=== PATIENT | female | born 1955 | race Caucasian/White ===

== ENCOUNTER 2020-06-26 08:55 | Outpatient (REF) | payer MEDICARE, SELFPAY ==
--- NOTE | 2020-06-26 09:32 | P.BOP_ITS ---
Brief Operative Note Date of Service: 06/26/20 Pre-op diagnosis: Nontoxic multinodular goiter Post-op diagnosis: same Procedure: This procedure was explained to the patient. Alternatives, risks and benefits were discussed. Written consent was obtained. After sterile preparation of the skin, fine-needle aspiration biopsy of right mid pole thyroid nodule size 1.7 x 1.3 x 1.3 cm was performed under direct ultrasound guidance to confirm accurate needle placement. Three passes were performed with 27 gauge needles. Sample was submitted to cytology, initial cytology reading was adequate. 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 Patient tolerated procedure well. Aftercare instructions were provided. Impression: uncomplicated fine-needle aspiration biopsy of right mid pole thyroid nodule under direct ultrasound guidance. Surgeon: Christian Villareal MD Anesthesia: local (Lidocaine 1% 1 mL and Ethyl chloride stream spray) Estimated blood loss (mL): 0 Condition: stable Disposition: same day
[2020-06-26] MEDS: Lidocaine HCl 1 % MPF 5 ML VIAL SUBCUT (11:53)
== END 2020-06-26 08:56 | disposition home or self-care (01) ==
LOC: HO.US 08:55
PROVIDERS: Visit Provider Internal Medicine Endocrinology, Diabetes & Metabolism
DX: E04.2 Nontoxic multinodular goiter (principal)
CPT/HCPCS: 10005; 88172; 88173; 88177

== ENCOUNTER → 2020-07-09 08:00 | Outpatient (BNVA) | payer MEDICARE, SELFPAY | PROVIDERS: PCP Internal Medicine; Visit Provider Internal Medicine Endocrinology, Diabetes & Metabolism | DX: M81.0 Age-related osteoporosis without current pathological fracture (principal); E04.2 Nontoxic multinodular goiter; E55.9 Vitamin D deficiency, unspecified | CPT/HCPCS: 99212 ==

== ENCOUNTER 2020-09-18 09:17 | Outpatient (REF) | payer MEDICARE, SELFPAY ==
[2020-09-18 11:30] LABS: MANUAL DIFF FLAG NO
[2020-09-18 11:34] LABS: Basophils Absolute Auto 0.1 X10*3/uL (0.0-0.2); Basophils Percent Auto 0.7 % (0-2); Eosinophils Absolute Auto 0.7 X10*3/uL (0.0-0.4); Hematocrit 43.1 % (37-47); Hemoglobin 14.1 g/dl (12.0-16.0); Imm Gran Abs Auto 0.04 X10*3/uL (0.00-0.03); Imm Gran Pct Auto 0.6 % (0.0-0.4); Lymphocytes Absolute Auto 2.1 X10*3/uL (1.2-4.9); Lymphocytes Percent Auto 29.8 % (20-40); Mean Corpuscular HGB Conc 32.7 g/dl (31.0-35.0); Mean Corpuscular Hemoglobin 30.1 pg (27.0-33.0); Mean Corpuscular Volume 92.1 fL (80-98); Mean Platelet Volume 11.3 fL (9.4-12.3); Monocytes Absolute Auto 0.7 X10*3/uL (0.1-1.2); Monocytes Percent Auto 10.7 % (2-11); Neutrophils Absolute Auto 3.3 X10*3/uL (2.0-8.3); Neutrophils Percent Auto 48.2 % (45-73); Platelet Count 254 X10*3/uL (160-400); Red Blood Count 4.68 X10*6/uL (4.20-5.50); White Blood Count 6.9 X10*3/uL (4.8-10.8)
[2020-09-18 12:12] LABS: Erythrocyte Sedimentation Rate 2 MM/HR (0-20)
[2020-09-19 06:06] LABS: Immunoglobulin E 36 kU/L (<OR=114)
[2020-09-19 14:52] LABS: Anti Nuclear Antibody Screen NEGATIVE (NEGATIVE)
[2020-09-20 13:46] LABS: Myeloperoxidase Antibody <1.0 AI; Proteinase 3 PR3 Antibodies <1.0 AI
== END 2020-09-18 09:18 | disposition home or self-care (01) ==
LOC: HO.LAB 09:17
PROVIDERS: PCP Internal Medicine; Visit Provider Hospitalist
DX: J45.50 Severe persistent asthma, uncomplicated (principal); J67.9 Hypersensitivity pneumonitis due to unspecified organic dust; R21 Rash and other nonspecific skin eruption; D72.12 Drug rash with eosinophilia and systemic symptoms syndrome; T50.905A Adverse effect of unspecified drugs, medicaments and biological substances, initial encounter; J30.9 Allergic rhinitis, unspecified
CPT/HCPCS: 36415; 82785; 85025; 85652; 86021; 86038; 86039; 99212

== ENCOUNTER 2020-10-13 09:03 | Day surgery (SDC) | payer MEDICARE, SELFPAY ==
[2020-10-07 09:00] VITALS: BMI 17.9
--- NOTE | 2020-10-10 07:11 | P.CONAN_ITS ---
Documented by User: Shayy Graf 10/10/20 07:12 HPI - Anesthesia Eval Consult details Narrative: 65yo F for Colonoscopy PMFSH Active Problems Active Problems: All Active Problems (Updated 10/07/20 @ 09:04 by Arlen Arias) Severe persistent asthma (Acute) Chronic allergic rhinitis (Acute) Eosinophilia (Acute) Hypersensitivity pneumonitis (Acute) Rash and nonspecific skin eruption (Acute) Asthma (Acute) Vitamin D deficiency (Acute) Non-toxic multinodular goiter (Acute) Osteoporosis (Acute) Past Medical History Medical History Asthma Chronic allergic rhinitis Eosinophilia Hx of osteoporosis Hypersensitivity pneumonitis Non-toxic multinodular goiter Osteoporosis Rash and nonspecific skin eruption Severe persistent asthma Vitamin D deficiency Family History Family History Father Hypertension Myocardial infarct Mother Hypertension Surgical History Surgical History H/O colonoscopy History of esophagogastroduodenoscopy (EGD) Hx of cholecystectomy Hx of cystoscopy Hx of hernia repair Hx of hysterectomy Social History Social History Smoking Status: Former smoker Tobacco Type: Cigarette Use of substances other than those prescribed or required for medical reasons: No Advance Directives Information Provided: No Meds Allergies Allergy/AdvReac Type Severity Reaction Status Date / Time sulfur Allergy Severe Nausea and Verified 09/18/20 09:49 Vomiting montelukast [Singulair] AdvReac Severe Headache Verified 09/18/20 09:49 Home Medications Medication Instructions Recorded Confirmed Last Taken Type cholecalciferol (vitamin D3) 125 125 mcg PO DAILY 07/09/20 10/07/20 Unknown History mcg (5,000 unit) capsule fluticasone 500 mcg-salmeterol 50 ea INHALATION 07/09/20 09/18/20 Unknown History mcg/dose blistr powdr for inhalation fluticasone 250 mcg-salmeterol 50 ea INHALATION 09/18/20 09/18/20 Unknown History mcg/dose blistr powdr for inhalation albuterol sulfate [Ventolin HFA] 2 puff INHALATION Q6H PRN 10/07/20 10/07/20 Unknown History fluticasone furoate-vilanterol 1 inh INHALATION DAILY 10/07/20 10/07/20 Unknown History [Steve Garcia] Exam Exam Date and Time: October 10, 2020 0711 Height,Weight and Vital Signs: Height 5 ft 10 in Weight 56.699 kg Assessment and Plan Assessment Anesthesia Assessment: Chart Reviewed Documented by User: Daria Ariza 10/13/20 10:48 [facility] Past Medical History Medical History Asthma Chronic allergic rhinitis Eosinophilia Hx of osteoporosis Hypersensitivity pneumonitis Non-toxic multinodular goiter Osteoporosis Rash and nonspecific skin eruption Severe persistent asthma Vitamin D deficiency Family History Family History Father Hypertension Myocardial infarct Mother Hypertension Surgical History Surgical History H/O colonoscopy History of esophagogastroduodenoscopy (EGD) Hx of cholecystectomy Hx of cystoscopy Hx of hernia repair Hx of hysterectomy Social History Social History Smoking Status: Former smoker Tobacco Type: Cigarette Use of substances other than those prescribed or required for medical reasons: No Advance Directives Information Provided: No Meds Allergies Allergy/AdvReac Type Severity Reaction Status Date / Time sulfur Allergy Severe Nausea and Verified 09/18/20 09:49 Vomiting montelukast [Singulair] AdvReac Severe Headache Verified 09/18/20 09:49 Home Medications Medication Instructions Recorded Confirmed Last Taken Type cholecalciferol (vitamin D3) 125 125 mcg PO DAILY 07/09/20 10/07/20 Unknown Hist ory mcg (5,000 unit) capsule fluticasone 500 mcg-salmeterol 50 ea INHALATION 07/09/20 09/18/20 Unknown History mcg/dose blistr powdr for inhalation fluticasone 250 mcg-salmeterol 50 ea INHALATION 09/18/20 09/18/20 Unknown History mcg/dose blistr powdr for inhalation albuterol sulfate [Ventolin HFA] 2 puff INHALATION Q6H PRN 10/07/20 10/07/20 Unknown History fluticasone furoate-vilanterol 1 inh INHALATION DAILY 10/07/20 10/07/20 Unknown History [Breo Ellipta] Exam Airway Mallampati Class: II TM Dist: >3cm Neck ROM: Full Heart: RRR Lungs: CTA Assessment and Plan Assessment Anesthesia Assessment: Anesthesia Plan Discussed and Chart Reviewed Final Anesthetic Review NPO: Yes ASA Class: II Final Preanesthetic Review: Meds/Allgs Chart Reviewed, Consent Obtained/Reviewed and Anes Risks/Benef Reviewed Patient Risk: Low Procedure Risk: Low Anesthetic Plan Anesthetic Plan: MAC: Disposition: Standard PACU
[2020-10-13 09:38] VITALS: BP 140/73; PULSE 64; RESP 16; TEMP 36.8; O2SAT 99
[2020-10-13 12:06] VITALS: BP 128/63; PULSE 90; RESP 14; TEMP 36.6; O2SAT 98
--- NOTE | 2020-10-13 12:07 | PM.OP ---
Brief Operative Note Date of Service: 10/13/20 Pre-op diagnosis: Screening, Hx of colon polyps Post-op diagnosis: other (Cecal polyp, Diverticulosis) Procedure: Colonoscopy to the cecum with snare polypectomy Surgeon: Matt De La Rosa Anesthesia: MAC Estimated blood loss (mL): 3.0 Pathology: other (A. Cecal polyp) Condition: stable Disposition: PACU
[2020-10-13 12:21] VITALS: BP 133/60; PULSE 70; RESP 17; TEMP 36.6; O2SAT 98
--- NOTE | 2020-10-16 22:39 | OP_ITS ---
SURGEON: Matt De La Rosa MD INDICATIONS: The patient presents for followup of colorectal cancer screening and prior history of tubular adenoma of the colon. Full consent was obtained from her for this including risks of bleeding and perforation. PREOPERATIVE DIAGNOSIS: POSTOPERATIVE DIAGNOSIS: PROCEDURE PERFORMED: Colonoscopy to the cecum with snare polypectomy. ESTIMATED BLOOD LOSS: COMPLICATIONS: ANESTHESIA: Medication used, monitored anesthesia care. ASSISTANTS: SPECIMENS: PREOPERATIVE DIAGNOSES: Colorectal cancer screening and personal history of tubular adenoma of the colon. POSTOPERATIVE DIAGNOSES: Colorectal cancer screening and personal history of tubular adenoma of the colon, colon polyp, diverticulosis, and internal hemorrhoids. DESCRIPTION OF PROCEDURE: The patient was placed in the left lateral decubitus position. The digital rectal exam revealed no abnormalities. The Olympus video pediatric colonoscope was entered into the rectum and advanced easily to the cecum. Once in the cecum, I did identify cecal pouch with appendiceal orifice and a normal appearing ileocecal valve. The entire cecum was well visualized. There was transillumination of light deep in the right lower quadrant. In the cecum, was the previously seen scar from her previous polypectomy. I did not see any residual polyp in this area. However, separate from that was an approximately 8-10 mm grossly adenomatous polyp, which was snared and recovered by suction. The polypectomy site appeared clean, without any sign of residual polyp nor bleeding. The scope was then slowly withdrawn assessing all mucosal surfaces carefully. Preparation was excellent. I did not visualize any sign of other polyps, colitis, nor angiodysplasias. There was a mild amount of sigmoid diverticulosis. In the rectum, scope was retroflexed visualizing internal hemorrhoids, but no other pathology. The rectal mucosa appeared normal. The scope was straightened and withdrawn from the patient. She tolerated the procedure well and was returned to recovery area in stable condition. IMPRESSION: 1. Colon polyp, status post snare polypectomy. 2. Diverticulosis. 3. Internal hemorrhoids. PLAN: The results of the pathology will be checked. Given her previous history and today's findings, I would recommend a repeat colonoscopy in 2 years for further surveillance. She was advised not to use any aspirin and NSAIDs for 1 week. She will see me otherwise on a p.r.n. basis. This has been discussed with her . MD ZARA Schwartz/LEMUEL / [id number] MIKE
== END 2020-10-13 13:02 | disposition home or self-care (01) ==
PROVIDERS: PCP Internal Medicine; Visit Provider Internal Medicine
PROC: 0DJD8ZZ Inspection of Lower Intestinal Tract, Via Natural or Artificial Opening Endoscopic (ICD-10-PCS; CPT 45378; principal; 2020-10-13 10:20)
DX: Z12.11 Encounter for screening for malignant neoplasm of colon (principal); Z86.010 Personal history of colon polyps; D12.0 Benign neoplasm of cecum; K57.30 Diverticulosis of large intestine without perforation or abscess without bleeding; K64.8 Other hemorrhoids; R68.81 Early satiety; J82.83 Eosinophilic asthma; J30.9 Allergic rhinitis, unspecified; M81.0 Age-related osteoporosis without current pathological fracture; Z79.51 Long term (current) use of inhaled steroids; Z90.49 Acquired absence of other specified parts of digestive tract; Z87.891 Personal history of nicotine dependence; Z79.899 Other long term (current) drug therapy
CPT/HCPCS: 45385; 88305

== ENCOUNTER 2020-11-03 09:51 | Outpatient (REF) | payer MEDICARE, SELFPAY ==
[2020-11-03 12:11] LABS: Blood Urea Nitrogen 12 mg/dL (9-16); Estimated Glomerular Filt Rate > 60
== END 2020-11-03 09:52 | disposition home or self-care (01) ==
LOC: HO.HMGCLDS 09:51
PROVIDERS: Visit Provider Internal Medicine Endocrinology, Diabetes & Metabolism
DX: M81.0 Age-related osteoporosis without current pathological fracture (principal)
CPT/HCPCS: 36415; 82565; 84520

== ENCOUNTER 2020-11-04 08:46 | Outpatient (REF) | payer MEDICARE, SELFPAY | END 2020-11-04 08:47 | disposition home or self-care (01) | LOC: HO.MDS 08:46 | PROVIDERS: PCP Internal Medicine; Visit Provider Internal Medicine Endocrinology, Diabetes & Metabolism | DX: M81.0 Age-related osteoporosis without current pathological fracture (principal) | CPT/HCPCS: 96365; J3489 ==

== ENCOUNTER → 2020-11-21 09:28 | Outpatient (BNVA) | payer MEDICARE, SELFPAY | PROVIDERS: PCP Internal Medicine; Visit Provider Hospitalist | DX: J30.9 Allergic rhinitis, unspecified (principal); T50.905A Adverse effect of unspecified drugs, medicaments and biological substances, initial encounter; D72.12 Drug rash with eosinophilia and systemic symptoms syndrome; J67.9 Hypersensitivity pneumonitis due to unspecified organic dust | CPT/HCPCS: 99212 ==

== ENCOUNTER 2020-12-31 08:05 | Outpatient (REF) | payer MEDICARE, SELFPAY | END 2020-12-31 08:06 | disposition home or self-care (01) | LOC: HO.MDS 08:05 | PROVIDERS: PCP Internal Medicine; Visit Provider Hospitalist | DX: J45.50 Severe persistent asthma, uncomplicated (principal) | CPT/HCPCS: 96372; J0517 ==

== ENCOUNTER 2021-01-01 08:58 | Outpatient (REF) | payer MEDICARE, SELFPAY ==
[2021-01-01 12:00] LABS: Alanine Aminotransferase 12 U/L (0-31); Albumin Level 4.5 g/dL (3.5-5.0); Alkaline Phosphatase 56 U/L (39-117); Anion Gap 13 (12-20); Aspartate Amino Transferase 23 U/L (5-31); Bilirubin Total 0.4 mg/dL (0.0-1.0); Blood Urea Nitrogen 13 mg/dL (9-16); Calcium 9.9 mg/dL (8.4-10.2); Carbon Dioxide 27 mmol/L (22-29); Chloride 105 mmol/L (96-108); Estimated Glomerular Filt Rate > 60; Glucose Fasting 91 mg/dL (60-99); Sodium 141 mmol/L (135-145); Total Protein 6.9 g/dL (6.5-8.0)
[2021-01-01 12:25] LABS: Free T4 (Free Thyroxine) 1.18 ng/dL (0.71-1.85); Thyroid Stimulating Hormone 0.72 uIU/mL (0.32-4.0)
[2021-01-07 15:56] LABS: N-Telopeptide 29 (see note); NTXCreaRU 70 mg/dL (20-275)
== END 2021-01-01 08:59 | disposition home or self-care (01) ==
LOC: HO.HMGCLDS 08:58
PROVIDERS: PCP Internal Medicine; Visit Provider Internal Medicine Endocrinology, Diabetes & Metabolism
DX: M81.0 Age-related osteoporosis without current pathological fracture (principal)
CPT/HCPCS: 36415; 80053; 82306; 82523; 84439; 84443

== ENCOUNTER → 2021-01-07 08:00 | Outpatient (BNVA) | payer MEDICARE, SELFPAY | PROVIDERS: PCP Internal Medicine; Visit Provider Internal Medicine Endocrinology, Diabetes & Metabolism | DX: M18.0 Bilateral primary osteoarthritis of first carpometacarpal joints (principal); E04.2 Nontoxic multinodular goiter; E55.9 Vitamin D deficiency, unspecified | CPT/HCPCS: 99212 ==

== ENCOUNTER 2021-01-28 07:44 | Outpatient (REF) | payer MEDICARE, SELFPAY | END 2021-01-28 07:45 | disposition home or self-care (01) | LOC: HO.MDS 07:44 | PROVIDERS: PCP Internal Medicine; Visit Provider Hospitalist | DX: J45.50 Severe persistent asthma, uncomplicated (principal) | CPT/HCPCS: 96372; J0517 ==

== ENCOUNTER 2021-02-24 07:47 | Outpatient (REF) | payer MEDICARE, SELFPAY | END 2021-02-24 07:48 | disposition home or self-care (01) | LOC: HO.MDS 07:47 | PROVIDERS: PCP Internal Medicine; Visit Provider Hospitalist | DX: J45.50 Severe persistent asthma, uncomplicated (principal) | CPT/HCPCS: 96372; J0517 ==

== ENCOUNTER → 2021-03-19 09:20 | Outpatient (BNVA) | payer MEDICARE, SELFPAY | PROVIDERS: PCP Internal Medicine | DX: N20.0 Calculus of kidney (principal) | CPT/HCPCS: Q3014 ==

== ENCOUNTER → 2021-04-17 09:38 | Outpatient (BNVA) | payer MEDICARE, SELFPAY | PROVIDERS: PCP Internal Medicine; Visit Provider Hospitalist | DX: J45.50 Severe persistent asthma, uncomplicated (principal); J30.9 Allergic rhinitis, unspecified; J67.9 Hypersensitivity pneumonitis due to unspecified organic dust; D72.12 Drug rash with eosinophilia and systemic symptoms syndrome; T50.905A Adverse effect of unspecified drugs, medicaments and biological substances, initial encounter | CPT/HCPCS: 99212 ==

== ENCOUNTER 2021-04-21 08:58 | Outpatient (REF) | payer MEDICARE, SELFPAY | END 2021-04-21 08:59 | disposition home or self-care (01) | LOC: HO.MDS 08:58 | PROVIDERS: PCP Internal Medicine; Visit Provider Hospitalist | DX: J45.50 Severe persistent asthma, uncomplicated (principal) | CPT/HCPCS: 96372; J0517 ==

== ENCOUNTER 2021-06-17 09:03 | Outpatient (REF) | payer MEDICARE, SELFPAY | END 2021-06-17 09:04 | disposition home or self-care (01) | LOC: HO.MDS 09:03 | PROVIDERS: PCP Internal Medicine; Visit Provider Hospitalist | DX: J45.50 Severe persistent asthma, uncomplicated (principal) | CPT/HCPCS: 96372; J0517 ==

== ENCOUNTER 2021-08-12 08:51 | Outpatient (REF) | payer MEDICARE, SELFPAY | END 2021-08-12 08:52 | disposition home or self-care (01) | LOC: HO.MDS 08:51 | PROVIDERS: PCP Internal Medicine; Visit Provider Hospitalist | DX: J45.50 Severe persistent asthma, uncomplicated (principal) | CPT/HCPCS: 96372; J0517 ==

== ENCOUNTER 2021-09-25 09:43 | Outpatient (REF) | payer MEDICARE, SELFPAY | END 2021-09-25 09:44 | disposition home or self-care (01) | LOC: HO.MDS 09:43 | PROVIDERS: Visit Provider Hospitalist | DX: J45.50 Severe persistent asthma, uncomplicated (principal) | CPT/HCPCS: 96372; J0517 ==

== ENCOUNTER 2021-09-25 10:24 | Outpatient (REF) | payer MEDICARE, SELFPAY ==
--- NOTE | 2021-09-25 11:38 | PFT_ITS ---
FLOWS: FEV1 103% of predicted at 3.01 L. FVC 93% of predicted at 3.57 L. FEV1 to FVC ratio of 0.84. No bronchodilator response. LUNG VOLUMES: Total lung capacity 95% of predicted at 5.71 L. Residual volume 72% of predicted at 1.78 L. Slow vital capacity 112% of predicted at 3.93 L. Expiratory reserve volume 181% of predicted at 1.76 L. Diffusion capacity is mildly decreased. IMPRESSION: No obstructive or restrictive ventilatory defect. No bronchodilator response. Decreased diffusion capacity suggests emphysema. Giovanni Avitia MD AP/MODL / [id number]
== END 2021-09-25 10:25 | disposition home or self-care (01) ==
LOC: HO.RESP 10:24
PROVIDERS: PCP Internal Medicine; Visit Provider Hospitalist
DX: J45.50 Severe persistent asthma, uncomplicated (principal); R06.00 Dyspnea, unspecified
CPT/HCPCS: 94060; 94727; 94729

== ENCOUNTER → 2021-10-07 09:57 | Outpatient (BNVA) | payer MEDICARE, SELFPAY | PROVIDERS: PCP Internal Medicine; Visit Provider Hospitalist | DX: J45.50 Severe persistent asthma, uncomplicated (principal); J30.9 Allergic rhinitis, unspecified; D72.12 Drug rash with eosinophilia and systemic symptoms syndrome; J67.9 Hypersensitivity pneumonitis due to unspecified organic dust; T50.905A Adverse effect of unspecified drugs, medicaments and biological substances, initial encounter | CPT/HCPCS: 99212 ==

== ENCOUNTER 2021-11-20 08:55 | Outpatient (REF) | payer MEDICARE, SELFPAY | END 2021-11-20 08:56 | disposition home or self-care (01) | LOC: HO.MDS 08:55 | PROVIDERS: Visit Provider Hospitalist | DX: J45.50 Severe persistent asthma, uncomplicated (principal) | CPT/HCPCS: 96372 ==

== ENCOUNTER 2021-11-26 10:16 | Outpatient (REF) | payer MEDICARE, SELFPAY ==
--- NOTE | ~2021-11-26 | MM_ITS ---
EXAMINATION: BONE DENSITOMETRY CLINICAL INDICATION: Age-related osteoporosis without current pathological fracture. COMPARISON: None (current study represents initial baseline exam). TECHNIQUE: Using a OBOOK DXA System (software version: 13.1) manufactured by [employer], dual-energy x-ray absorptiometry was performed of the lumbar spine and left hip. The images are of good technical quality. Summary results are attached. FINDINGS: AP SPINE L1-L4: BMD 0.929 g/cm2, Z-score -0.3, T-score -2.1, osteopenia. LEFT FEMUR, NECK: BMD 0.555 g/cm2, Z-score -1.7, T-score -3.5, osteoporosis. LEFT FEMUR, TOTAL: BMD 0.618 g/cm2, Z-score -1.6, T-score -3.1, osteoporosis. IDENTIFIED RISK FACTORS: Early menopause, secondary osteoporosis, osteoporosis, family history (parental hip fracture), hysterectomy, bilateral oophorectomy. HISTORY OF FRACTURE: None listed. MEDICATIONS: Vitamin D, bisphosphonates. MM/XR DEXA axial skeleton IMPRESSION: 1. DIAGNOSIS: Osteoporosis based on the lowest T-score value of -3.5 in the femoral neck applying World Health Organization criteria. 2. 10-YEAR FRACTURE RISK PREDICTION, FRAX: According to the guidelines, FRAX calculation should only be performed on patients in the osteopenia bone density category. Therefore, FRAX was not performed on this patient. 3. Treatment Recommendations: NOF guidelines recommend consideration for treatment in postmenopausal women and men age 50 and older presenting with the following: -A hip or vertebral (clinical or morphometric) fracture. -T-score less than or equal to -2.5 at the femoral neck or spine after appropriate evaluation to exclude secondary causes. -Low bone mass at the hip or spine and a 10-year fracture probability by FRAX of greater than or equal to 3% for hip fracture or greater than or equal to 20% for major osteoporotic fracture based on the [place] adapted WHO algorithm. 4. Other Recommendations: All treatment decisions require clinical judgment and consideration of individual patient factors, including patient preferences, comorbidities, previous drug use, risk factors not captured in the FRAX model (e.g. frailty, falls, vitamin D deficiency, increased bone turnover, interval significant decline in bone density) and possible under or overestimation of fracture risk by FRAX. Additional medical evaluation for secondary cause of low bone mineral density may be appropriate. FUTURE SCAN RECOMMENDATION: People with diagnosed cases of osteoporosis or at high risk for fracture should have regular bone mineral density tests. For patients eligible for Medicare, routine testing is allowed once every 2 years. The testing frequency can be increased to one year for patients who have rapidly progressing disease, those who are receiving or discontinuing medical therapy to restore bone mass, or have additional risk factors.
== END 2021-11-26 10:17 | disposition home or self-care (01) ==
LOC: HO.MAMMO 10:16
PROVIDERS: Visit Provider Internal Medicine Endocrinology, Diabetes & Metabolism
DX: Z13.820 Encounter for screening for osteoporosis (principal); M81.0 Age-related osteoporosis without current pathological fracture; E04.2 Nontoxic multinodular goiter; Z78.0 Asymptomatic menopausal state
CPT/HCPCS: 77080

== ENCOUNTER 2021-11-30 11:19 | Outpatient (REF) | payer MEDICARE, SELFPAY ==
--- NOTE | ~2021-11-30 | XR_ITS ---
EXAMINATION: XR CHEST CLINICAL INFORMATION: Severe persistent asthma COMPARISON: Previous chest x-ray March 2019 TECHNIQUE: 2 views of the chest were obtained. FINDINGS: The cardiac and mediastinal contours are stable. The lungs are well inflated. The lungs are clear without evidence of pneumonia. There is no pleural effusion or pneumothorax. There are degenerative changes of the spine. XR/XR chest 2V IMPRESSION: Well-inflated lungs. No evidence for acute disease in the chest.
--- NOTE | ~2021-11-30 | US_ITS ---
EXAMINATION: US THYROID CLINICAL INFORMATION: Nontoxic multinodular goiter. COMPARISON: US thyroid 01/14/2020 and 04/03/2018. TECHNIQUE: Linear transducer grayscale and color Doppler examination with attention to the region of the thyroid. FINDINGS: SIZE: Measurements of the thyroid lobes and nodules are given in sagittal, anteroposterior and transverse dimensions respectively. Right Thyroid Lobe: 5.6 x 1.6 x 1.7 cm, volume 7.74 mL. Previously 5.6 x 2.0 x 2.1 cm, volume 12.0 mL. Parenchyma: The gland echotexture is homogeneous. Thyroid vascularity is increased. Left Thyroid Lobe: 5.3 x 1.4 x 2.1 cm, volume 7.8 mL. Previously 5.2 x 1.3 x 2.0 cm, volume 7.1 mL. Parenchyma: The gland echotexture is homogeneous. Thyroid vascularity is increased. Isthmus: 0.18 cm in maximum AP dimension. Previously 0.14 cm. Estimated total number of nodules greater than or equal to 1 cm: 0. Chaperone nodules are described as follows: 1. Location: Right mid. Size: 0.70 x 0.39 x 0.47 cm, volume 0.07 mL. Previously: 1.7 x 1.2 x 1.3 cm, volume 1.4 mL. Nodule characteristics: Composition: Mixed cystic and solid (1). Echogenicity: Hypoechoic (2). Shape: Not taller than wide (0). Margins: Smooth (0). Echogenic Foci: Punctate echogenic foci (3). ACR TI-RADS total points: 6 ACR TI-RADS category: 4 Significant change in size (>/= 20% in 2 dimensions and minimal increase of 2 mm or 50% or greater increase in volume): Decrease in volume. Change in features: None. Change in ACR TI-RADS risk category: Not applicable. 2. Location: Left mid. Size: 0.80 x 0.37 x 0.55 cm, volume 0.09 mL. Previously: 0.78 x 0.40 x 0.56 cm, volume 0.09 mL. Nodule characteristics: Composition: Spongiform (0). Echogenicity: Anechoic (0). Shape: Not taller than wide (0). Margins: Smooth (0). Echogenic Foci: None (0). ACR TI-RADS total points: 0. ACR TI-RADS category: 1. Significant change in size (>/= 20% in 2 dimensions and minimal increase of 2 mm or 50% or greater increase in volume): None. Change in features: None. Change in ACR TI-RADS risk category: Not applicable. 3. Location: Left superior. Size: 0.51 x 0.27 x 0.46 cm, volume 0.03 mL. Previously: 0.51 x 0.26 x 0.45 cm, volume 0.03 mL. Nodule characteristics: Composition: Spongiform (0). Echogenicity: Anechoic (0). Shape: Not taller than wide (0). Margins: Smooth (0). Echogenic Foci: None (0). ACR TI-RADS total points: 0. ACR TI-RADS category: 1. Significant change in size (>/= 20% in 2 dimensions and minimal increase of 2 mm or 50% or greater increase in volume): None. Change in features: None. Change in ACR TI-RADS risk category: Not applicable. NODES: No lymphadenopathy is seen in the tissue surrounding the thyroid gland. US/US thyroid IMPRESSION: Slight decrease in the size of the right thyroid lobe and right midpole nodule. Small subcentimeter nodules left lobe are stable. No change in left thyroid lobe. Bilateral mild increased hypervascularity could be secondary to thyroiditis. ACR TI-RADS RECOMMENDATION REFERENCE: Ultrasound-guided fine-needle aspiration, followup ultrasound, no further follow up. * TR1 (0 point) and TR 2 (2 points): No FNA or follow up * TR3 (3 points): FNA if more than or equal to 2.5 cm in maximum dimension, followup ultrasound in 1, 3 and 5 years if 1.5 to 2.4 cm in maximum dimension. * TR4 (4-6 points): FNA if more than or equal to 1.5 cm in maximum dimension, followup ultrasound in 1, 2, 3 and 5 years if 1 to 1.4 cm in maximum dimension. * TR5 (more than or equal to 7 points): FNA if more than or equal to 1 cm in maximum dimension, followup ultrasound every year for 5 years if 0.5 to 0.9 cm in maximum dimension. * TR3, TR4 or TR5 nodules that are below the size threshold for follow up receive no follow up.
[2021-11-30 13:58] LABS: MANUAL DIFF FLAG NO
[2021-11-30 14:04] LABS: Hematocrit 39.5 % (37.0-47.0); Hemoglobin 12.7 g/dl (12.0-16.0); Imm Gran Abs Auto 0.02 X10*3/uL (0.00-0.03); Imm Gran Pct Auto 0.3 % (0.0-0.4); Lymphocytes Absolute Auto 2.5 X10*3/uL (1.2-4.9); Lymphocytes Percent Auto 41.1 % (20-40); Mean Corpuscular HGB Conc 32.2 g/dl (31.0-35.0); Mean Corpuscular Hemoglobin 29.8 pg (27.0-33.0); Mean Corpuscular Volume 92.7 fL (80.0-98.0); Mean Platelet Volume 12.1 fL (9.4-12.3); Monocytes Absolute Auto 0.6 X10*3/uL (0.1-1.2); Monocytes Percent Auto 9.3 % (2-11); Neutrophils Percent Auto 49.3 % (45-73); Platelet Count 221 X10*3/uL (160-400); Red Blood Count 4.26 X10*6/uL (4.20-5.50); Red Cell Distribution Width 13.1 % (11.0-16.0); White Blood Count 6.2 X10*3/uL (4.8-10.8)
== END 2021-11-30 11:20 | disposition home or self-care (01) ==
LOC: HO.HMGCX 11:19
PROVIDERS: Hospitalist; Visit Provider Internal Medicine Endocrinology, Diabetes & Metabolism
DX: E04.2 Nontoxic multinodular goiter (principal); J45.50 Severe persistent asthma, uncomplicated; M81.0 Age-related osteoporosis without current pathological fracture
CPT/HCPCS: 36415; 71046; 76536; 85025

== ENCOUNTER 2022-01-15 09:20 | Outpatient (REF) | payer MEDICARE, SELFPAY | END 2022-01-15 09:21 | disposition home or self-care (01) | LOC: HO.MDS 09:20 | PROVIDERS: Visit Provider Hospitalist | DX: J45.50 Severe persistent asthma, uncomplicated (principal) | CPT/HCPCS: 96372; J0517 ==

== ENCOUNTER 2022-01-17 18:22 | Emergency (ER) | payer MEDICARE, SELFPAY ==
--- NOTE | 2022-01-17 | ECG_ITS ---
Test Reason : SOB Blood Pressure : / mmHG Vent. Rate : 098 BPM Atrial Rate : 098 BPM P-R Int : 136 ms QRS Dur : 088 ms QT Int : 328 ms P-R-T Axes : 076 034 070 degrees QTc Int : 418 ms Normal sinus rhythm Possible Left atrial enlargement Nonspecific ST abnormality Abnormal ECG When compared with ECG of 21-APR-2019 07:52, Nonspecific T wave abnormality now evident in Anterior leads Referred By: Generic ED Physician Electronically Signed By:AL ROJO
--- NOTE | ~2022-01-17 | XR_ITS ---
EXAMINATION: XR CHEST CLINICAL INFORMATION: Cough COMPARISON: 11/30/2021 TECHNIQUE: Frontal view of the chest was obtained. FINDINGS: Mild increasing opacity at the right base. Evolving infiltrate needs to be considered. Otherwise lung alfredo are comparable to previous. There is no failure. No effusion. The cardiac silhouette is within normal limits. XR/XR chest 1V IMPRESSION: Findings suggest developing right basilar infiltrate
[2022-01-17 18:24] VITALS: BP 152/71; PULSE 109; RESP 22; TEMP 37.7; O2SAT 94; BMI 18.6
[2022-01-17 18:58] LABS: MANUAL DIFF FLAG NO
[2022-01-17 19:00] LABS: Basophils Percent Auto 0.1 % (0-2); Hematocrit 41.1 % (37.0-47.0); Hemoglobin 13.7 g/dl (12.0-16.0); Imm Gran Abs Auto 0.04 X10*3/uL (0.00-0.03); Imm Gran Pct Auto 0.4 % (0.0-0.4); Lymphocytes Absolute Auto 0.9 X10*3/uL (1.2-4.9); Lymphocytes Percent Auto 7.9 % (20-40); Mean Corpuscular HGB Conc 33.3 g/dl (31.0-35.0); Mean Corpuscular Hemoglobin 29.7 pg (27.0-33.0); Mean Platelet Volume 11.1 fL (9.4-12.3); Monocytes Absolute Auto 1.2 X10*3/uL (0.1-1.2); Monocytes Percent Auto 10.9 % (2-11); Neutrophils Percent Auto 80.7 % (45-73); Platelet Count 182 X10*3/uL (160-400); Red Blood Count 4.62 X10*6/uL (4.20-5.50); Red Cell Distribution Width 12.7 % (11.0-16.0); White Blood Count 11.1 X10*3/uL (4.8-10.8)
[2022-01-17 19:13] LABS: Anion Gap 19 (12-20); Blood Urea Nitrogen 13 mg/dL (9-16); Calcium 9.5 mg/dL (8.4-10.2); Carbon Dioxide 21 mmol/L (22-29); Chloride 97 mmol/L (96-108); Creatinine Clr Calc Pharmacy 50.1; Estimated Glomerular Filt Rate 55; Glucose Random 109 mg/dL (60-115); Potassium 4.1 mmol/L (3.3-5.1); Sodium 133 mmol/L (135-145)
[2022-01-17 19:15] LABS: COVID-19 Test Negative (Negative); IDNOW Serial# 16C4AD1C
[2022-01-17 19:17] LABS: Influenza A Negative (Negative); Influenza B2 Negative (Negative)
--- NOTE | 2022-01-17 22:31 | ED.GENADULT ---
HPI - General Adult General Chief complaint: General Medical Stated complaint: Nauseas/Weakness Time Seen by Provider: 01/17/22 18:41 Source: patient Mode of arrival: ambulatory Limitations: no limitations History of Present Illness HPI narrative: Patient With history of asthma but coughing for last 3- 4 days with low-grade fever and mucopurulent expectoration her granddaughter also sick with same. Patient does use inhaler at home no significant shortness of breath or chest pain or palpitation Related Data Home Medications Medication Instructions Recorded Confirmed albuterol sulfate 90 mcg/actuation 2 puff inhalation Q6H PRN Wheezing 10/07/20 01/07/21 aerosol inhaler (Ventolin HFA) Previous Rx's Medication Instructions Recorded zoledronic acid 5 mg/100 mL in 1 ea IV ONCE 1 day #100 mL 10/14/20 mannitol 5 %-water intravenous piggybck (Reclast) cholecalciferol (vitamin D3) 125 125 mcg PO DAILY 90 days #90 caps 01/07/21 mcg (5,000 unit) capsule azelastine 137 mcg (0.1 %) nasal 2 spray intranasal BID 30 days #30 04/17/21 spray aerosol mL fluticasone 250 mcg-salmeterol 50 1 ea inhalation BID #180 ea 10/07/21 mcg/dose blistr powdr for inhalation (Wixela Inhub) fluticasone propionate 50 2 spray intranasal DAILY 30 days 10/07/21 mcg/actuation nasal #15.8 mL spray,suspension Fasenra 30 mg/mL subcutaneous 30 mg subcut Q8W 360 days #1 mL 12/23/21 syringe (benralizumab) cetirizine 10 mg tablet 10 mg PO DAILY #90 tabs 12/25/21 triamcinolone acetonide 0.1 % 1 appl topical DAILY #60 mL 01/04/22 lotion cefpodoxime 200 mg tablet 200 mg PO BID #20 tabs 01/17/22 codeine 10 mg-guaifenesin 100 mg/5 5 ml PO Q6H PRN cough #237 mL 01/17/22 mL oral liquid (Guaiatussin AC) Allergies Allergy/AdvReac Type Severity Reaction Status Date / Time sulfur Allergy Severe Nausea and Verified 01/04/22 10:26 Vomiting montelukast [Singulair] AdvReac Severe Headache Verified 01/04/22 10:26 Review of Systems Review of Systems: Yes all other systems are reviewed and are negative [facility] Past Medical History Medical History Hx of osteoporosis Surgical History H/O colonoscopy History of esophagogastroduodenoscopy (EGD) Hx of cholecystectomy Hx of cystoscopy Hx of hernia repair Hx of hysterectomy Family History Family History Father Hypertension Myocardial infarct Mother Hypertension Social History Social History Patient Tobacco Use Status: Former Tobacco user Tobacco use type: Cigarette Cigarettes Per Day: 10 Years Smoked: 20 Advance Directives: No Advance Directives Information Provided: No Physical Exam ED Vital Signs: Vital Signs - 24 hr 01/17/22 18:24 01/17/22 22:53 Temperature 99.8 F 100.2 F Pulse Rate 109 H 104 H Respiratory Rate 22 H 18 Blood Pressure 152/71 H 148/69 H Pulse Oximetry 94 95 Oxygen Delivery Method Room Air Room Air BMI result Body Mass Index 18.6 Appearance: Alert. Oriented X3. No acute distress. Eyes: No pallor or icterus ENT: Pharynx normal. Oral Mucosa moist Neck: Normal inspection. Neck supple. CVS: Normal heart rate and rhythm. Pulses normal. Respiratory: No respiratory distress. Equal air entry bilateral, occasional crackles bilateral prolonged expiration Abdomen: Soft and nontender. Bowel sounds are present, no mass palpable, no CVA tenderness Skin: Skin warm and dry. Normal skin color. Normal skin turgor. Extremities: No lower extremity edema. No calf tenderness Neuro: Oriented X 3. No motor deficit. No sensory deficit. Medical Decision Making MDM Narrative Medical decision making narrative: Patient's symptoms with bronchitis chest x-ray negative for consolidation showing early infiltrate right lower lobe start patient on cefopodoxim Lab Data Lab results reviewed: Yes I reviewed the patient's lab results. Result diagrams: 01/17/22 18:31 01/17/22 18:31 Labs: Lab Results 01/17/22 01/17/22 01/17/22 Range/Units 18:28 18:28 18:31 WBC 11.1 H (4.8-10.8) X10*3/uL RBC 4.62 (4.20-5.50) X10*6/uL Hgb 13.7 (12.0-16.0) g/dl Hct 41.1 (37.0-47.0) % MCV 89.0 (80.0-98.0) fL MCH 29.7 (27.0-33.0) pg MCHC 33.3 (31.0-35.0) g/dl RDW 12.7 (11.0-16.0) % Plt Count 182 (160-400) X10*3/uL MPV 11.1 (9.4-12.3) fL Immature Gran % (Auto) 0.4 (0.0-0.4) % Neut % (Auto) 80.7 H (45-73) % Lymph % (Auto) 7.9 L (20-40) % Republic % (Auto) 10.9 (2-11) % Eos % (Auto) 0.0 (0-4) % Baso % (Auto) 0.1 (0-2) % Lymph # (Auto) 0.9 L (1.2-4.9) X10*3/uL Republic # (Auto) 1.2 (0.1-1.2) X10*3/uL Eos # (Auto) 0.0 (0.0-0.4) X10*3/uL Baso # (Auto) 0.0 (0.0-0.2) X10*3/uL Abs Immat Gran (auto) 0.04 H (0.00-0.03) X10*3/uL Absolute Neuts (auto) 9.0 H (2.0-8.3) x10*3/uL Absolute Nucleated RBC 0.000 (0.0-0.012) X10*3/uL Nucleated RBC % (auto) 0.0 (0.0-0.2) /100WBC Sodium (135-145) mmol/L Potassium (3.3-5.1) mmol/L Chloride (96-108) mmol/L Carbon Dioxide (22-29) mmol/L Anion Gap (12-20) BUN (9-16) mg/dL Creatinine (0.5-1.4) mg/dL Estim Creat Clear Calc Estimated GFR Random Glucose (60-115) mg/dL Calcium (8.4-10.2) mg/dL COVID-19 (MELISA) Negative (Negative) COVID-19 Clin Com See Note Influenza Type A (ALBERTA) Negative (Negative) Influenza Type B (ALBERTA) Negative (Negative) Influenza A & B Note See Note 01/17/22 Range/Units 18:31 WBC (4.8-10.8) X10*3/uL RBC (4.20-5.50) X10*6/uL Hgb (12.0-16.0) g/dl Hct (37.0-47.0) % MCV (80.0-98.0) fL MCH (27.0-33.0) pg MCHC (31.0-35.0) g/dl RDW (11.0-16.0) % Plt Count (160-400) X10*3/uL MPV (9.4-12.3) fL Immature Gran % (Auto) (0.0-0.4) % Neut % (Auto) (45-73) % Lymph % (Auto) (20-40) % Republic % (Auto) (2-11) % Eos % (Auto) (0-4) % Baso % (Auto) (0-2) % Lymph # (Auto) (1.2-4.9) X10*3/uL Republic # (Auto) (0.1-1.2) X10*3/uL Eos # (Auto) (0.0-0.4) X10*3/uL Baso # (Auto) (0.0-0.2) X10*3/uL Abs Immat Gran (auto) (0.00-0.03) X10*3/uL Absolute Neuts (auto) (2.0-8.3) x10*3/uL Absolute Nucleated RBC (0.0-0.012) X10*3/uL Nucleated RBC % (auto) (0.0-0.2) /100WBC Sodium 133 L (135-145) mmol/L Potassium 4.1 (3.3-5.1) mmol/L Chloride 97 (96-108) mmol/L Carbon Dioxide 21 L (22-29) mmol/L Anion Gap 19 (12-20) BUN 13 (9-16) mg/dL Creatinine 1.00 (0.5-1.4) mg/dL Estim Creat Clear Calc 50.1 Estimated GFR 55 Random Glucose 109 (60-115) mg/dL Calcium 9.5 (8.4-10.2) mg/dL COVID-19 (MELISA) (Negative) COVID-19 Clin Com Influenza Type A (ALBERTA) (Negative) Influenza Type B (ALBERTA) (Negative) Influenza A & B Note Discharge Plan Discharge Clinical Impression: Acute bronchitis Patient Disposition: Home, Self-Care Instructions: Acute Bronchitis (ED) Additional Instructions: Continue to use albuterol inhaler Take antibiotics and cough syrup as prescribed Follow-up with PCP if not better Prescriptions: New cefpodoxime 200 mg tablet 200 mg PO BID Qty: 20 0RF Rx Instructions: must administer with a meal/food codeine-guaifenesin [Guaiatussin AC] 10-100 mg/5 mL liquid 5 ml PO Q6H PRN (Reason: cough) Qty: 237 0RF No Action zoledronic [id number]-[id number] [Reclast] 5 mg/100 mL piggyback 1 ea IV ONCE 1 Days Qty: 100 0RF Fasenra 30 mg/mL syringe 30 mg subcut Q8W 360 Days Qty: 1 12RF cetirizine 10 mg tablet 10 mg PO DAILY Qty: 90 2RF albuterol sulfate [Ventolin HFA] 90 mcg/actuation Hfa Aerosol Inhaler 2 puff INHALATION Q6H PRN (Reason: Wheezing) triamcinolone acetonide 0.1 % lotion 1 appl topical DAILY Qty: 60 0RF cholecalciferol (vitamin D3) 125 mcg (5,000 unit) capsule 125 mcg PO DAILY 90 Days Qty: 90 1RF azelastine 137 mcg (0.1 %) aerosol,spray 2 spray intranasal BID 30 Days Qty: 30 6RF Rx Instructions: administer into each nostril fluticasone propion-salmeterol [Wixela Inhub] 250-50 mcg/dose blister with device 1 ea inhalation BID Qty: 180 3RF fluticasone propionate 50 mcg/actuation spray,suspension 2 spray intranasal DAILY 30 Days Qty: 15.8 11RF Interventions: ED Discharge Assessment Last Done: 01/17/22 23:10 Discharge Date/Time: 01/17/22 23:11
[2022-01-17] MEDS: guaiFEN/Codeine SF 200/20/10ML 10 ML LIQUID PO (22:52)
[2022-01-17 22:53] VITALS: BP 148/69; PULSE 104; RESP 18; TEMP 37.9; O2SAT 95
== END 2022-01-17 23:11 | disposition home or self-care (01) ==
PROVIDERS: Emergency Provider Internal Medicine; PCP Internal Medicine
DX: J20.9 Acute bronchitis, unspecified (principal); Z20.822 Contact with and (suspected) exposure to COVID-19
CPT/HCPCS: 71045; 80048; 85025; 87502; 87635; 93005; 99283; 99284

== ENCOUNTER → 2022-02-10 09:56 | Outpatient (BNVA) | payer MEDICARE, SELFPAY | PROVIDERS: PCP Internal Medicine; Visit Provider Internal Medicine Endocrinology, Diabetes & Metabolism | DX: M81.0 Age-related osteoporosis without current pathological fracture (principal); E04.2 Nontoxic multinodular goiter | CPT/HCPCS: 99212 ==

== ENCOUNTER 2022-02-15 12:51 | Outpatient (REF) | payer MEDICARE, SELFPAY ==
--- NOTE | ~2022-02-15 | US_ITS ---
EXAMINATION: US RETROPERITONEAL LIMITED (RENAL ONLY) CLINICAL INFORMATION: Calculus of kidney. COMPARISON: Renal ultrasound 01/29/2021, renal ultrasound 08/31/2019, CT abdomen and pelvis 07/19/2019. TECHNIQUE: Real-time imaging of the kidneys. FINDINGS: RIGHT KIDNEY: 9.5 x 3.5 x 4.8 cm (SAG x AP x TRV). The kidney is normal in size, contour, and echogenicity. Renal cortical thickness is normal. No calculi or focal parenchymal lesions. No hydronephrosis. There are a few scattered punctate echogenic foci visualized. LEFT KIDNEY: 10.3 x 4.7 x 4.9 cm (SAG x AP x TRV). The kidney is normal in size, contour, and echogenicity. Renal cortical thickness is normal. No focal parenchymal lesions or hydronephrosis. There is a nonobstructive echogenic stone lower pole measuring 0.4 x 0.5 x 0.5 cm. There are a few punctate echogenic foci seen. US/US renal BI IMPRESSION: Nonobstructive echogenic calculi lower pole left kidney. Scattered punctate echogenic foci.
== END 2022-02-15 12:52 | disposition home or self-care (01) ==
LOC: HO.HMGCX 12:51
DX: N20.0 Calculus of kidney (principal)
CPT/HCPCS: 76775

== ENCOUNTER 2022-03-12 08:39 | Outpatient (REF) | payer MEDICARE, SELFPAY | END 2022-03-12 08:40 | disposition home or self-care (01) | LOC: HO.MDS 08:39 | PROVIDERS: Visit Provider Hospitalist | DX: J45.50 Severe persistent asthma, uncomplicated (principal) | CPT/HCPCS: 96372; J0517 ==

== ENCOUNTER → 2022-03-25 11:50 | Outpatient (BNVA) | payer MEDICARE, SELFPAY | PROVIDERS: PCP Internal Medicine; Visit Provider Urology | DX: N20.0 Calculus of kidney (principal) | CPT/HCPCS: Q3014 ==

== ENCOUNTER 2022-04-28 07:04 | Outpatient (REF) | payer MEDICARE, SELFPAY ==
[2022-05-03 17:47] LABS: N-Telopeptide 31 (see note); NTXCreaRU 61 mg/dL (20-275)
== END 2022-04-28 07:05 | disposition home or self-care (01) ==
LOC: HO.LAB 07:04
PROVIDERS: PCP Internal Medicine; Visit Provider Internal Medicine Endocrinology, Diabetes & Metabolism
DX: M81.0 Age-related osteoporosis without current pathological fracture (principal)
CPT/HCPCS: 82523

== ENCOUNTER 2022-05-07 08:51 | Outpatient (REF) | payer MEDICARE, SELFPAY | END 2022-05-07 08:52 | disposition home or self-care (01) | LOC: HO.MDS 08:51 | PROVIDERS: Visit Provider Hospitalist | DX: J45.50 Severe persistent asthma, uncomplicated (principal) | CPT/HCPCS: 96372 ==

== ENCOUNTER → 2022-06-11 10:39 | Outpatient (BNVA) | payer MEDICARE, SELFPAY | PROVIDERS: PCP Internal Medicine; Visit Provider Internal Medicine Endocrinology, Diabetes & Metabolism | DX: M81.0 Age-related osteoporosis without current pathological fracture (principal); E04.2 Nontoxic multinodular goiter | CPT/HCPCS: 99212 ==

== ENCOUNTER 2022-07-02 08:49 | Outpatient (REF) | payer MEDICARE, SELFPAY | END 2022-07-02 08:50 | disposition home or self-care (01) | LOC: HO.MDS 08:49 | PROVIDERS: Visit Provider Hospitalist | DX: J45.50 Severe persistent asthma, uncomplicated (principal) | CPT/HCPCS: 96372 ==

== ENCOUNTER 2022-08-26 08:49 | Outpatient (REF) | payer MEDICARE, SELFPAY | END 2022-08-26 08:50 | disposition home or self-care (01) | LOC: HO.MDS 08:49 | PROVIDERS: Visit Provider Hospitalist | DX: J45.50 Severe persistent asthma, uncomplicated (principal) | CPT/HCPCS: 96372 ==

== ENCOUNTER 2022-09-23 11:01 | Outpatient (REF) | payer MEDICARE, SELFPAY ==
[2022-09-23 13:04] LABS: Appearance Urine Clear; Color Urine Yellow; Glucose Urine UA Negative (Negative); Leukocyte Esterase Urine Large (3+) (Negative); Nitrite Urine Negative (Negative); Specific Gravity - Urine <= 1.005 (1.005-1.025); UMIC TRIGGER UA YES; Urine Blood Small (1+) (Negative); Urine Ketones Negative (Negative); Urine Protein Negative (Neg-Trace)
[2022-09-23 13:16] LABS: Bacteria Urine 4+ (None Seen); Hyaline Casts Urine 0-2 /LPF (0-2); RBC Urine 0-2 /HPF (0-2); Squamous Epithelial Cell Urine 0-2 /HPF (0-2)
== END 2022-09-23 11:02 | disposition home or self-care (01) ==
LOC: HO.LAB 11:01
PROVIDERS: PCP Internal Medicine; Visit Provider Urology
DX: N20.0 Calculus of kidney (principal)
CPT/HCPCS: 81001; 87086; 87088; 87186

== ENCOUNTER 2022-10-21 08:51 | Outpatient (REF) | payer MEDICARE, SELFPAY | END 2022-10-21 08:52 | disposition home or self-care (01) | LOC: HO.MDS 08:51 | PROVIDERS: Visit Provider Hospitalist | DX: J45.50 Severe persistent asthma, uncomplicated (principal) | CPT/HCPCS: 96372 ==

== ENCOUNTER 2022-12-16 08:48 | Outpatient (REF) | payer MEDICARE, SELFPAY | END 2022-12-16 08:49 | disposition home or self-care (01) | LOC: HO.MDS 08:48 | PROVIDERS: Visit Provider Hospitalist | DX: J45.50 Severe persistent asthma, uncomplicated (principal) | CPT/HCPCS: 96372 ==

== ENCOUNTER 2023-02-10 08:32 | Outpatient (REF) | payer MEDICARE, SELFPAY | END 2023-02-10 08:33 | disposition home or self-care (01) | LOC: HO.MDS 08:32 | PROVIDERS: Visit Provider Hospitalist | DX: J45.50 Severe persistent asthma, uncomplicated (principal) | CPT/HCPCS: 96372; J0517 ==

== ENCOUNTER 2023-03-14 08:23 | Outpatient (REF) | payer MEDICARE, SELFPAY ==
--- NOTE | 2023-03-14 09:06 | PFT_ITS ---
INDICATION: Asthma. SPIROMETRY: FEV to FVC of 85% with an FEV1 of 2.76 L, which is 96% predicted, FVC of 3.26 L, which is 86% predicted. No significant response to bronchodilators noted. Maximum voluntary ventilation 160% predicted. LUNG VOLUMES: Total lung capacity 90% predicted. DIFFUSION CAPACITY: DLCO 62% predicted. COMPARISONS: None available. INTERPRETATION: No obstructive nor restrictive ventilatory defects identified. No significant response to bronchodilators noted. Normal maximum voluntary ventilation. Lung volumes are within normal limits. The patient does have a mild isolated diffusion impairment. Clinical correlation warranted. Should also correct for hemoglobin. Jeremy Weinstein MD MR/MODL / [id number]
[2023-03-14 09:12] LABS: MANUAL DIFF FLAG NO
[2023-03-14 09:30] LABS: Hematocrit 42.5 % (37.0-47.0); Hemoglobin 13.9 g/dl (12.0-16.0); Imm Gran Abs Auto 0.03 X10*3/uL (0.00-0.03); Imm Gran Pct Auto 0.6 % (0.0-0.4); Lymphocytes Absolute Auto 2.3 X10*3/uL (1.2-4.9); Mean Corpuscular HGB Conc 32.7 g/dl (31.0-35.0); Mean Corpuscular Hemoglobin 29.3 pg (27.0-33.0); Mean Corpuscular Volume 89.5 fL (80.0-98.0); Monocytes Absolute Auto 0.6 X10*3/uL (0.1-1.2); Monocytes Percent Auto 11.6 % (2-11); Neutrophils Absolute Auto 2.3 x10*3/uL (2.0-8.3); Neutrophils Percent Auto 43.8 % (45-73); Platelet Count 208 X10*3/uL (160-400); Red Blood Count 4.75 X10*6/uL (4.20-5.50); Red Cell Distribution Width 13.2 % (11.0-16.0); White Blood Count 5.2 X10*3/uL (4.8-10.8)
[2023-03-14 10:17] LABS: Erythrocyte Sedimentation Rate 2 MM/HR (0-20)
[2023-03-16 06:28] LABS: Immunoglobulin E 19 kU/L (<OR=114)
[2023-03-16 16:32] LABS: IgA 160 mg/dL (70-320); IgG 827 mg/dL (600-1540); IgM 92 mg/dL (50-300)
== END 2023-03-14 08:24 | disposition home or self-care (01) ==
LOC: HO.RESP 08:23
PROVIDERS: Visit Provider Hospitalist
DX: D72.12 Drug rash with eosinophilia and systemic symptoms syndrome (principal); T50.905A Adverse effect of unspecified drugs, medicaments and biological substances, initial encounter; J45.50 Severe persistent asthma, uncomplicated; J30.9 Allergic rhinitis, unspecified
CPT/HCPCS: 36415; 82784; 82785; 85025; 85652; 94010; 94727; 94729

== ENCOUNTER → 2023-03-14 09:06 | Outpatient (BNV) | payer MEDICARE, SELFPAY | PROVIDERS: Visit Provider Hospitalist | DX: J45.909 Unspecified asthma, uncomplicated (principal) | CPT/HCPCS: 94060; 94727; 94729 ==

== ENCOUNTER 2023-03-18 09:41 | Outpatient (REF) | payer MEDICARE, SELFPAY ==
--- NOTE | ~2023-03-18 | XR_ITS ---
EXAMINATION: XR CHEST CLINICAL INFORMATION: Drug rash with eosinophilia and systemic systems syndrome. COMPARISON: None available. TECHNIQUE: 2 views of the chest were obtained. FINDINGS: The cardiomediastinal silhouette is normal. There is no focal lung consolidation or pleural effusion. The bony structures and soft tissues are unremarkable. XR/XR chest 2V IMPRESSION: No active cardiopulmonary disease.
--- NOTE | ~2023-03-18 | US_ITS ---
EXAMINATION: US RETROPERITONEAL LIMITED (RENAL ONLY) CLINICAL INFORMATION: Microscopic hematuria. COMPARISON: Renal ultrasound 02/15/2022 and 01/29/2021. CT abdomen and pelvis 07/19/2019. TECHNIQUE: Real-time imaging of the kidneys. FINDINGS: RIGHT KIDNEY: 9.4 x 3.4 x 4.5 cm (SAG x AP x TRV). The kidney is normal in size, contour, and echogenicity. Renal cortical thickness is normal. No calculi or focal parenchymal lesions. No hydronephrosis. LEFT KIDNEY: 9.8 x 3.9 x 4.6 cm (SAG x AP x TRV). The kidney is normal in size, contour, and echogenicity. Renal cortical thickness is normal. No calculi or focal parenchymal lesions. No hydronephrosis. US/US retroperitoneal limited IMPRESSION: Unremarkable examination.
== END 2023-03-18 09:42 | disposition home or self-care (01) ==
LOC: HO.US 09:41
PROVIDERS: PCP Internal Medicine; Visit Provider Urology
DX: D72.12 Drug rash with eosinophilia and systemic symptoms syndrome (principal); T50.905A Adverse effect of unspecified drugs, medicaments and biological substances, initial encounter; J45.50 Severe persistent asthma, uncomplicated; J30.9 Allergic rhinitis, unspecified; R31.29 Other microscopic hematuria
CPT/HCPCS: 71046; 76775

== ENCOUNTER 2023-03-25 10:30 | Outpatient (AMB) | payer MEDICARE, SELFPAY ==
--- NOTE | 2023-03-25 10:31 | A.OFFVIS_ITS ---
Intake Vital Signs 03/25/23 10:32 Height 5 ft 10 in Weight 137 lb 12.623 oz BMI 19.8 BP 132/67 Blood Pressure Location Rt brachial Position Sitting Pulse 56 Pulse Source Doppler Pulse Oximetry (%) 99 Oxygen Delivery Method Room Air Intake Visit Reasons: S/p pft Allergies sulfur Allergy (Severe, Verified 03/25/23 10:33) Nausea and Vomiting montelukast [Singulair] Adverse Reaction (Severe, Verified 03/25/23 10:33) Headache HPI HPI Comments History of Present Illness Details The patient is a 68 y/o woman with asthma. She was briefly hospitalized at [facility] for worsening respiratory symptoms and significant wheezing. She was found to have significant bronchitis. During the workup she had immunoglobulin levels checked were normal. She had a barium swallow was reassuring, although she did have slight stasis in the proximal esophagus. No evidence of any reflux. She was treated in the hospital and started on Breo. I did see her when she was in a hospital significant wheezing. She responded well to the inhaler therapy and also to the steroids. The question is if the she has some underlying COPD or asthmatic bronchitis picture now that she is discharged back she is breathing well. She has been using some omeprazole for possibility of reflux disease which appears to help in the cough. However, she is having additional nasal congestion moderate in severity with postnasal drip and also significant stuffiness of the nose and hoarseness. Patient also had blood work demonstrating elevations in her eosinophil suggesting eosinophilic asthma phenotype in addition to that she had a positive hypersensitivity panel to mold including penicillium and Cladospirium. The patient does have mold issues at home. She is also using her Claritin and also Benadryl because of what appears to be atopic dermatitis significant pruritus in her soles and palms. At this point she is getting maximize and respiratory therapy. Based on his significant allergic rhinitis hypersensitivity pneumonitis asthma and now at the atopic dermatitis it will be reasonable to consider biologic therapy. Her eosinophils were significant elevated during the last evaluation approximately back in May. Will re-draw her blood work to assess her eosinophils and consider biologic therapy. 03/20/2020 The patient is here for pulmonary follow-up visit. Overall she is doing well. She continues on the Wixella 500/50 with good effect. She does need to use twice a day otherwise she becomes symptomatic. She also takes allergy medication. She is very mindful of the mold hypersensitivity reactions and she is using a mask when working outside in the garden and also more in the lung. She needs to be very my for now with the fall calming and leaves that can become moldy as well. We did talk about the dose of the inhaled steroids. It would be best to try to minimize the steroid down to 250 mcg. Will plan to do that after she successfully transitions to the fall. 09/18/2020 the patient is here for pulmonary follow-up visit. Since we last spoke she did decrease her Advair down to 250. However, she feels that she is getting more nasal congestion and postnasal drip. She also complains of more shortness of breath. And again she started to have this significant rash that is very pleuritic in nature. She has a hard time sleeping because of the discomfort with the rash. Again we looked at her blood work demonstrating significant eosinophilia. Recently also we retested her blood work and now with a 10% increase eosinophilia. 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 The patient will respond well to biologic therapy. Patient also has significant allergies to mold. She needs to be care for specially now with melting of this now and the leaves that are uncovered that have significant mold exposures. I did give her the hypersensitivity panel that she can look at and read up on more information about her mold hyper sensitivities. In the meantime she is to continue her respiratory therapy. Will start her on additional nasal therapy. However, with her ongoing symptoms and her significant eosinophilia starting her on biologic therapy with Fasenra will be a very good option. 11/21/2020 the patient is here for pulmonary follow-up visit. Since we last spoke she continues to have worsening respiratory symptoms. She had 1 night where she has significant chest tightness and shortness of breath and she took additional medication. In addition to that she does use her rescue inhaler on a daily basis. She also has been complaining of significant allergic reactions and allergic symptoms with significant sinusitis and nasal congestion. We have not heard from the insurance company about starting her on Fasenra. However, we did call and was approved and therefore the prescription was sent and will hopefully start her on biologic therapy that is going to improve her severe asthma symptoms. 04/17/2021 the patient is here for a pulmonary follow-up visit. Overall the patient continues to do well. The Fasenra biologic injections have been very effective beneficial for the patient. She is concerned that she is going to her worst season which is fall. She was hospitalized previously and she is concerned about having worsening symptoms again. I reassured her that the combination of using a mask and maintaining physical distance from individuals along with the Fasenra she has help her stay healthy this fall and winter season. In the meantime she did undergo pulmonary function studies which were personally by me demonstrating no obstructive nor restrictive ventilatory defects. She appears to have normal lung mechanics. Therefore will continue with current respiratory regimen. She does continue to use her maintenance therapy regularly. she does not use her rescue inhaler often although she has had to use it the last several weeks. 10/07/2021 the patient is here for a pulmonary follow-up visit. Overall continues to do very well on the Fasenra biologic injections. Her asthma has been significantly improved and she has not required any prednisone or any rescue medication. However, she does complaint of nasal congestion and usually cough in the morning. [id number] severity. Usually clears up after that. We did talk about performing nasal rinsing and also starting fluticasone. She did try the Astelin nasal spray but it cost too much dryness. The patient did undergo pulmonary function studies which we personally reviewed. We did compared to her PFTs from a year ago. It appears the patient has very good spirometry numbers in addition to lung volumes. However, seems to have a moderate diffusion impairment. This is trending down when compared to last ye ar. Therefore have her undergo a CBC to make sure that she is not anemic and also should undergo a chest x-ray at some point. Will repeat the PFTs in a year's time. She will continue with current respiratory therapy and biologic therapy at this time. Will reassess next year. 03/25/2023 the patient is here for a pulmonary follow-up visit. Overall she is doing very good. Now that we are going to the fall and with ragweed season she is starting to have some nasal congestion. She had to take some Zyrtec. But for the most part she is been doing great on the Fasenra injections. Her asthma and also chronic rhinitis allergic rhinitis have dramatically improved. She denies any significant wheezing chest tightness or coughing. She is not having any significant adverse reactions from the biologic therapy at this time. We did review her PFTs and appear to show some improvement in her the diffusing capacity. Her other numbers are also excellent. Her blood work also reassuring without any evidence of any eosinophilia. The patient also had a chest x-ray that was without any acute disease. Overall the patient is doing very well on the current therapy. Will continue this current therapy will follow-up in a year's time. [facility] Medical History (Updated 03/25/23 @ 14:45 by Serenity Curiel PA-C) Chronic allergic rhinitis Eosinophilia Hypersensitivity pneumonitis Non-toxic multinodular goiter Osteoporosis Rash and nonspecific skin eruption Severe persistent asthma Tubular adenoma of colon Vitamin D deficiency Surgical History (Updated 03/25/23 @ 14:45 by Serenity Curiel PA-C) History of cholecystectomy History of colonoscopy History of cystoscopy History of esophagogastroduodenoscopy (EGD) History of hysterectomy History of ventral hernia repair S/P thyroid biopsy Family History Father Hypertension Myocardial infarct Mother Hypertension Social History Patient Tobacco Use Status: Former Tobacco user Tobacco use type: Cigarette Cigarettes Per Day: 10 Years Smoked: 20 Review of Systems Const Denies night sweats ENT Denies change in voice, Denies lip swelling, Denies mouth pain, Reports nasal congestion, Reports nasal discharge and Denies tongue swelling Card Denies chest pain and Denies dyspnea Resp Reports cough, Denies dyspnea and Denies wheezing GI Denies abdominal pain Musc Denies no additional complaints Neuro Denies Neuro-related abnormal movements Psych Denies no additional complaints Brendan/Lymph Denies easy bleeding and Denies lymphadenopathy Aller/Immun Denies lip swelling, Denies tongue swelling and Denies wheezing Physical Exam Vital Signs: Last Vital Signs Pulse 56 03/25/23 10:32 BP 132/67 03/25/23 10:32 Pulse Ox 99 03/25/23 10:32 Oxygen Delivery Method Room Air 03/25/23 10:32 BMI result Body Mass Index 19.8 Const General: alert Neck Neck: Yes normal visual inspection, Yes full ROM and Yes no lymphadenopathy Chest Chest palpation & inspection: normal inspection of the chest Resp Effort & Inspection: normal respiratory effort Auscultation: clear to auscultation bilaterally and no wheezes Cardio Rate: regular rate Rhythm: regular rhythm Heart sounds: S1 normal heart sound present and S2 normal heart sound present GI Palpation (GI): Soft to palpation and nontender Auscultation: normal bowel sounds Skin General skin exam: rashes and/or lesions noted Immunizations pneumoc 20-jose conj-dip cr(PF) Performing Provider: Jeremy Weinstein MD Administered by: Elizabeth Goodson LPN on 03/25/23 11:00 Dose Route Admin Location Lot Number Expiration Date 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 Attending Dr: Montana West MD Ordering Physician: Jeremy Weinstein MD Date of Service: 03/18/23 Procedure(s): XR chest 2V Accession Number(s): [id number] cc: Jeremy Weinstein MD~ EXAMINATION: XR CHEST CLINICAL INFORMATION: Drug rash with eosinophilia and systemic systems syndrome. COMPARISON: None available. TECHNIQUE: 2 views of the chest were obtained. FINDINGS: The cardiomediastinal silhouette is normal. There is no focal lung consolidation or pleural effusion. The bony structures and soft tissues are unremarkable. XR/XR chest 2V IMPRESSION: No active cardiopulmonary disease. Dictated By: Matt White Signed By: <Electronically signed by Matt? Cindy in OV> 03/19/23 0306 DD/ 0950 TD/TT:? 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: Assessment & Plan Assessment & Plan (1) Severe persistent asthma: Code(s): J45.50 - Severe persistent asthma, uncomplicated Qualifiers: Asthma complication type: uncomplicated Qualified Code(s): J45.50 - Severe persistent asthma, uncomplicated (2) Chronic allergic rhinitis: Code(s): J30.9 - Allergic rhinitis, unspecified (3) Eosinophilia: Comment: eosinophiliac asthma per pulmonology H&P Code(s): D72.10 - Eosinophilia, unspecified Qualifiers: Eosinophilia type: drug rash with eosinophilia and systemic symptoms Qualified Code(s): D72.12 - Drug rash with eosinophilia and systemic symptoms syndrome; T50.909V - Adverse effect of unspecified drugs, medicaments and biological substances, initial encounter (4) Hypersensitivity pneumonitis: Code(s): J67.9 - Hypersensitivity pneumonitis due to unspecified organic dust Plan Continue respiratory therapy with Wixela daily continue nasal steroid and nasal rinsing short-acting beta agonist as needed continue Fasenra every 2 months prevnar 20 vaccine F/U 1 yr Orders: Orders Pneumococcal 20 Immunization 03/25/23 Z23 - Encounter for immunization Coding Level of Care Code Est Pt Level 4 (65336) Diagnoses Severe persistent asthma J45.50 Asthma complication type: uncomplicated Chronic allergic rhinitis J30.9 Eosinophilia D72.12; T50.905A Eosinophilia type: drug rash with eosinophilia and systemic symptoms Hypersensitivity pneumonitis J67.9
[2023-03-25 10:32] VITALS: BP 132/67; PULSE 56; O2SAT 99; BMI 19.8
== END 2023-03-25 10:55 | disposition home or self-care (01) ==
PROVIDERS: PCP Internal Medicine; Visit Provider Hospitalist
DX: J45.50 Severe persistent asthma, uncomplicated (principal); J30.9 Allergic rhinitis, unspecified; D72.12 Drug rash with eosinophilia and systemic symptoms syndrome; T50.905A Adverse effect of unspecified drugs, medicaments and biological substances, initial encounter; J67.9 Hypersensitivity pneumonitis due to unspecified organic dust
CPT/HCPCS: 99214

== ENCOUNTER → 2023-03-25 10:30 | Outpatient (BNVA) | payer MEDICARE, SELFPAY | PROVIDERS: PCP Internal Medicine; Visit Provider Hospitalist | DX: Z23 Encounter for immunization (principal); J45.50 Severe persistent asthma, uncomplicated; J30.9 Allergic rhinitis, unspecified; J67.9 Hypersensitivity pneumonitis due to unspecified organic dust; D72.12 Drug rash with eosinophilia and systemic symptoms syndrome; T50.905D Adverse effect of unspecified drugs, medicaments and biological substances, subsequent encounter | CPT/HCPCS: 90471; 90677; 99212 ==

== ENCOUNTER 2023-04-04 07:29 | Day surgery (SDC) | payer MEDICARE, SELFPAY ==
--- NOTE | 2023-04-01 11:46 | HO.ANESPROP2 ---
Documented by User: Shayy Graf NP 04/01/23 11:48 HPI - Anesthesia Eval Consult details Narrative: 68yo F for Colonoscopy Pulmo office eval 03/2023, stable with improved PFT PMFSH Active Problems Active Problems: All Active Problems (Updated 03/25/23 @ 14:45 by Serenity Curiel PA-C) Severe persistent asthma (Acute) Eosinophilia (Acute) Hypersensitivity pneumonitis (Acute) Chronic allergic rhinitis (Acute) Vitamin D deficiency (Acute) Non-toxic multinodular goiter (Acute) Osteoporosis (Acute) Tubular adenoma of colon (Acute) Nephrolithiasis (Acute) Past Medical History Medical History Tubular adenoma of colon Severe persistent asthma Chronic allergic rhinitis Eosinophilia Hypersensitivity pneumonitis Rash and nonspecific skin eruption Vitamin D deficiency Non-toxic multinodular goiter Osteoporosis Family History Family History Father Hypertension Myocardial infarct Mother Hypertension Surgical History Surgical History S/P thyroid biopsy History of ventral hernia repair History of hysterectomy History of cholecystectomy History of cystoscopy History of colonoscopy History of esophagogastroduodenoscopy (EGD) Social History Social History Patient Tobacco Use Status: Former Tobacco user Tobacco use type: Cigarette Cigarettes Per Day: 10 Years Smoked: 20 Advance Directives: No Advance Directives Information Provided: Yes Meds Allergies Allergy/AdvReac Type Severity Reaction Status Date / Time sulfur Allergy Severe Nausea and Verified 03/25/23 10:33 Vomiting montelukast [Singulair] AdvReac Severe Headache Verified 03/25/23 10:33 Home Medications Medication Instructions Recorded Confirmed Last Taken Type albuterol sulfate 90 mcg/actuation 2 puff inhalation Q6H PRN Wheezing 10/07/20 01/07/21 Unknown History aerosol inhaler (Ventolin HFA) Exam Exam Date and Time: April 01, 2023 1146 Pertinent Lab Results Pertinent Lab Results: Laboratory Tests 03/14/23 09:11 WBC 5.2 Hgb 13.9 Hct 42.5 Plt Count 208 Assessment and Plan Assessment Anesthesia Assessment: Chart Reviewed Documented by User: Daria Ariza MD 04/04/23 08:17 PMFSH Past Medical History Medical History Tubular adenoma of colon Severe persistent asthma Chronic allergic rhinitis Eosinophilia Hypersensitivity pneumonitis Rash and nonspecific skin eruption Vitamin D deficiency Non-toxic multinodular goiter Osteoporosis Family History Family History Father Hypertension Myocardial infarct Mother Hypertension Surgical History Surgical History S/P thyroid biopsy History of ventral hernia repair History of hysterectomy History of cholecystectomy History of cystoscopy History of colonoscopy History of esophagogastroduodenoscopy (EGD) History of Problems with Anesthesia: No Social History Social History Patient Tobacco Use Status: Former Tobacco user Tobacco use type: Cigarette Cigarettes Per Day: 10 Years Smoked: 20 Advance Directives: No Advance Directives Information Provided: Yes Meds Allergies Allergy/AdvReac Type Severity Reaction Status Date / Time sulfur Allergy Severe Nausea and Verified 03/25/23 10:33 Vomiting montelukast [Singulair] AdvReac Severe Headache Verified 03/25/23 10:33 Home Medications Medication Instructions Recorded Confirmed Last Taken Type albuterol sulfate 90 mcg/actuation 2 puff inhalation Q6H PRN Wheezing 10/07/20 01/07/21 Unknown History aerosol inhaler (Ventolin HFA) Exam Airway Mallampati Class: II TM Dist: >3cm Neck ROM: Full Loose/Missing/Broken Teeth: No Heart: RRR Lungs: CTA Assessment and Plan Assessment Anesthesia Assessment: Anesthesia Plan Discussed and Chart Reviewed Final Anesthetic Review History of Problems with Anesthesia: No NPO: Yes ASA Class: II Final Preanesthetic Review: Meds/Allgs Chart Reviewed, Consent Obtained/Reviewed and Anes Risks/Benef Reviewed Patient Risk: Low Procedure Risk: Low Anesthetic Plan Anesthetic Plan: MAC: Disposition: Standard PACU
[2023-04-04 08:08] VITALS: BP 141/66; PULSE 70; RESP 18; TEMP 36.6; O2SAT 98; BMI 18.9
[2023-04-04] MEDS: Lactated Ringers 1,000 ML 100 ML IVCONT (08:26)
[2023-04-04] MEDS: ondansetron HCL 4 MG/2 ML VIAL IVPUSH (08:27)
[2023-04-04] MEDS: Scopolamine 1.5 MG PATCH.TD.3 TRANSDERMA (08:27)
[2023-04-04 09:47] VITALS: BP 135/60; PULSE 86; RESP 16; TEMP 36.3; O2SAT 94
--- NOTE | 2023-04-04 09:52 | P.BOP_ITS ---
Brief Operative Note Date of Service: 04/04/23 Pre-op diagnosis: Screening Post-op diagnosis: other (Polyps) Procedure: Colonoscopy to the cecum with hot snare polypectomy x 4 Surgeon: Matt De La Rosa Anesthesia: MAC Was an Evaporative Cooler Installer used for this Procedure?: No Estimated blood loss (mL): 0 Pathology: other (A. Cecal polyp B. Polyp on ICV C. Ascending colon polyp D. Transverse colon polyp) Condition: stable Disposition: PACU
[2023-04-04 10:02] VITALS: BP 146/71; PULSE 71; RESP 15; TEMP 36.3; O2SAT 99
--- NOTE | 2023-04-04 10:35 | OP_ITS ---
DATE OF SERVICE: 04/04/2023 SURGEON: Matt De La Rosa MD INDICATIONS: The patient presents for followup of personal history of tubular adenomas of the colon and colorectal cancer screening. Full consent has been obtained from her for this, including risks of bleeding and perforation. PREOPERATIVE DIAGNOSIS: Colorectal cancer screening and personal history of tubular adenomas of the colon. POSTOPERATIVE DIAGNOSIS: PROCEDURE PERFORMED: Colonoscopy to the cecum with hot snare polypectomy x 4. ESTIMATED BLOOD LOSS: COMPLICATIONS: ANESTHESIA: Monitored anesthesia care. ASSISTANTS: SPECIMENS: POSTOPERATIVE DIAGNOSES: Colorectal cancer screening and personal history of tubular adenomas of the colon, colon polyps, diverticulosis, and internal hemorrhoids. DESCRIPTION OF PROCEDURE: The patient was placed in left lateral decubitus position. The digital rectal exam revealed no abnormalities. The Olympus video pediatric colonoscope was entered into the rectum and advanced to the cecum. Advancement was somewhat difficult due to significant diverticular disease in the sigmoid colon. This did require abdominal wall pressure. Once in the cecum, I did identify cecal pouch with appendiceal orifice and a normal-appearing ileocecal valve. There was transillumination of light deep in the right lower quadrant. In the cecum, along a fold, was an approximately 8 to 10 mm grossly adenomatous polyp, which was removed by hot snare polypectomy and recovered by suction. The scope was then slowly withdrawn assessing all mucosal surfaces carefully. Preparation was excellent. On the portion of the ileocecal valve in the ascending colon was an approximately 8 mm grossly adenomatous polyp, which was removed by hot snare polypectomy and recovered by suction. In the ascending colon, more distal to the ileocecal valve, was an approximately 8 mm grossly adenomatous polyp, which was removed by hot snare polypectomy and recovered by suction. In the transverse colon was an approximately 8 to 10 mm polyp, which was removed by hot snare polypectomy and recovered by suction. All of the polypectomy sites appeared clean, without any sign of residual polyp nor bleeding. I did not visualize any other polyps, colitis, nor angiodysplasia. There was a significant amount of diverticulosis in the sigmoid colon. In the rectum, scope was retroflexed visualizing internal hemorrhoids but no other pathology. The rectal mucosa appeared normal. The scope was straightened and withdrawn from the patient. She tolerated the procedure well and was returned to the recovery area in stable condition. IMPRESSION: 1. Colon polyps. 2. Diverticulosis. 3. Internal hemorrhoids. PLAN: The results of the pathology will be checked I would recommend a repeat colonoscopy in 3 years for further surveillance. She was advised not to use any aspirin or NSAIDs for at least 1 week. This has been discussed with her . MD ZARA Schwartz/LEMUEL / [id number] MTDD
== END 2023-04-04 11:18 | disposition home or self-care (01) ==
PROVIDERS: PCP Internal Medicine; Visit Provider Internal Medicine
PROC: 0DJD8ZZ Inspection of Lower Intestinal Tract, Via Natural or Artificial Opening Endoscopic (ICD-10-PCS; CPT 45378; principal; 2023-04-04 08:30)
DX: Z12.11 Encounter for screening for malignant neoplasm of colon (principal); Z86.010 Personal history of colon polyps; D12.0 Benign neoplasm of cecum; D12.2 Benign neoplasm of ascending colon; D12.3 Benign neoplasm of transverse colon; K57.30 Diverticulosis of large intestine without perforation or abscess without bleeding; K64.8 Other hemorrhoids; K58.9 Irritable bowel syndrome, unspecified; M81.0 Age-related osteoporosis without current pathological fracture; J45.50 Severe persistent asthma, uncomplicated; J82.83 Eosinophilic asthma; Z79.51 Long term (current) use of inhaled steroids; Z79.899 Other long term (current) drug therapy; Z88.2 Allergy status to sulfonamides; Z88.8 Allergy status to other drugs, medicaments and biological substances; Z87.891 Personal history of nicotine dependence
CPT/HCPCS: 45385; 88305; J2405

== ENCOUNTER 2023-04-07 08:49 | Outpatient (REF) | payer MEDICARE, SELFPAY | END 2023-04-07 08:50 | disposition home or self-care (01) | LOC: HO.MDS 08:49 | PROVIDERS: Visit Provider Hospitalist | DX: J45.50 Severe persistent asthma, uncomplicated (principal) | CPT/HCPCS: 96372 ==

== ENCOUNTER 2023-04-18 08:19 | Outpatient (AMB) | payer MEDICARE, SELFPAY ==
--- NOTE | 2023-04-18 08:20 | A.OFFVIS_ITS ---
Intake Intake Visit Reasons: Hematuria- yearly follow up/US Intake Note: Patient presents today for a follow-up on Hematuria- yearly follow up/US: US Completed 03/18/2023 Meds- None Allergies to Antibiotic- No Known Allergies Blood Thinner- None Patient c/o of burning, pressure, strong urine odor, urgency. Field Merchandiser Required: No Accompanied by: Self / Same As Patient Allergies sulfur Allergy (Severe, Verified 04/18/23 08:21) Nausea and Vomiting montelukast [Singulair] Adverse Reaction (Severe, Verified 04/18/23 08:21) Headache Medication List - Last Reconciled 04/18/23 by Edmar Bains MD albuterol sulfate 90 mcg/actuation (Ventolin HFA) 2 puffs inhalation Q6H PRN azelastine 2 sprays intranasal BID 30 days azithromycin take 500 mg today (day 1), then 250 mg for 4 days (days 2-5) PO cetirizine 10 mg PO DAILY cholecalciferol (vitamin D3) 125 mcg PO DAILY 90 days estradiol (Vagifem) 10 mcg vaginal 2XW Fasenra (benralizumab) 30 mg subcut Q8W 360 days NS fluticasone propion-salmeterol 250-50 mcg/dose (Wixela Inhub) 1 ea inhalation BID fluticasone propionate 50 mcg/actuation 2 sprays intranasal DAILY 30 days nitrofurantoin monohyd/m-cryst 100 mg (Macrobid) 100 mg PO BID triamcinolone acetonide 0.1% 1 appl topical DAILY zoledronic osus-smmdrrcr-fjbyc 5 mg/100 mL (Reclast) 1 ea IV ONCE 1 day HPI HPI Comments History of Present Illness Details Mahi is a 68-year-old female who presents today to the office for a follow-up. 04/18/2023? She is followed today for h/o kidney stones She has seen [place] Hampton on 03/25/2022 for 1 year US. The patient was advised to maintain fluid and intake and surveillance during that time. I reviewed the US retroperitoneum results from 03/18/2023 revealed no calculi or focal parenchymal lesions. No hydronephrosis. Patient is consuming adequate amount of fluids. She states that she has had urinary tract infections on 09/2022. She states that she continues to have urinary urgency, and burning with urination. I reviewed the urine culture results from 09/23/2022 which came back Escherichia coli? > 100,000 cfu/mL. Pansensitive, the patient was treated with bactrim. She has a history of cigarette smoking. Notes that she had smoked cigarettes 25 years ago. Evaluation today?UA?Leukocytes: negative; Nitrite: positive; blood: negative. Plan: Macrobid 100 mg bid for 10 days. Vagifem 10 mcg twice a week. Follow up office Cystoscopy in one month. [facility] Medical History Tubular adenoma of colon Severe persistent asthma Chronic allergic rhinitis Eosinophilia Hypersensitivity pneumonitis Rash and nonspecific skin eruption Vitamin D deficiency Non-toxic multinodular goiter Osteoporosis Surgical History S/P thyroid biopsy History of ventral hernia repair History of hysterectomy History of cholecystectomy History of cystoscopy History of colonoscopy History of esophagogastroduodenoscopy (EGD) Family History Father Hypertension Myocardial infarct Mother Hypertension Social History Patient Tobacco Use Status: Former Tobacco user Tobacco use type: Cigarette Cigarettes Per Day: 10 Years Smoked: 20 Review of Systems Const All systems reviewed & are unremarkable except as noted in HPI and below Reports no additional complaints Eyes Reports no additional complaints ENT Reports no additional complaints Card Denies dyspnea Resp Denies cough and Denies dyspnea GI Reports no additional complaints Reports no additional complaints Musc Reports no additional complaints Skin/Breast Denies rash and Denies unusual bruising Neuro Reports no additional complaints Psych Reports no additional complaints Endo Reports no additional complaints Brendan/Lymph Reports no additional complaints Aller/Immun Reports no additional complaints Physical Exam Const General: cooperative, healthy appearing and no acute distress Orientation/consciousness: patient oriented x3 HEENT Head: Yes normal to inspection, Yes normocephalic and Yes atraumatic Eyes Conjunctivae: conjunctivae normal Neck Neck: Yes normal visual inspection and Yes trachea midline Chest Chest palpation & inspection: normal inspection of the chest Resp Effort & Inspection: normal respiratory effort Cardio Rate: regular rate GI Inspection: Yes normal to inspection Skin General skin exam: no rashes or lesions noted Neuro General: patient oriented x3 Extrem General: No edema Psych Appearance: grossly normal Results AMB Urinalysis, Automated UA Leukoctes 0 Sangeeta/uL Last Edit by TANA Leong on 04/18/23 08:29 UA Nitrite Positive Last Edit by Tonie Lambert Celeste on 04/18/23 08:29 UA Urobilinogen 0.2 mg/dL Last Edit by Tonie Lambert Celeste on 04/18/23 08:2 9 UA Protein 0 mg/dL Last Edit by Tonie Lambert Celeste on 04/18/23 08:29 UA pH 6.0 Last Edit by Tonie Lambert [facility] on 04/18/23 08:29 UA Blood 0 Cosmo/uL Last Edit by Tonie Lambert Celeste on 04/18/23 08:29 UA Specific [place]els 1.015 Last Edit by Tonie Lambert [facility] on 04/18/23 08: 29 UA Ketone Negative Last Edit by Tonie Lambert Celeste on 04/18/23 08:29 UA Bilirubin 0 mg/dL Last Edit by Tonie Lambert [facility] on 04/18/23 08:29 UA Glucose 0 mg/dL Last Edit by Tonie Lambert [facility] on 04/18/23 08:29 Results Reviewed Results Reviewed: Laboratory Last Values Urine pH (Auto) 6.0 04/18/23 08:22 Specific Carmichaels (Auto) 1.015 04/18/23 08:22 Urine Protein (Auto) 0 mg/dL 04/18/23 08:22 Glucose (UA)(Auto) 0 mg/dL 04/18/23 08:22 Urine Ketones (Auto) Negative 04/18/23 08:22 Urine Blood (Auto) 0 Csomo/uL 04/18/23 08:22 Urine Nitrite (Auto) Positive 04/18/23 08:22 Urine Bilirubin (Auto) 0 mg/dL 04/18/23 08:22 Urine Urobilinogen (Auto) 0.2 mg/dL 04/18/23 08:22 Leukocyte Esterase (Auto) 0 Sangeeta/uL 04/18/23 08:22 Date of Service: 03/18/23 EXAMINATION:? US RETROPERITONEAL LIMITED (RENAL ONLY) CLINICAL INFORMATION: Microscopic hematuria. COMPARISON:? Renal ultrasound 02/15/2022 and 01/29/2021. CT abdomen and pelvis 07/19/2019. FINDINGS: RIGHT KIDNEY: 9.4 x 3.4 x 4.5 cm (SAG x AP x TRV). The kidney is normal in size, contour, and echogenicity. Renal cortical thickness is normal. No calculi or focal parenchymal lesions. No hydronephrosis LEFT KIDNEY: 9.8 x 3.9 x 4.6 cm (SAG x AP x TRV). The kidney is normal in size, contour, and echogenicity. Renal cortical thickness is normal. No calculi or focal parenchymal lesions. No hydronephrosis. IMPRESSION:? Unremarkable examination Ordered:? Urine Culture? Procedure?Result?Verified?Site ? Urine Culture? Final?09/25/22-747 ? ? ?Organism 1?Escherichia coli ? Quant?> 100,000 cfu/mL ? E coli? M.I.C.? ? RX? --------- ---?Ampicillin?<=2? S?Ceftriaxone? <=0.25? ? ?S?Gentamicin?<=1? S?Levofloxacin?<=0.12? ? ?S?Nitrofurantoin?<=16?S?Trimethoprim/Sulfamethoxazole? <=20?S Assessment & Plan Assessment & Plan (1) Nephrolithiasis: Code(s): N20.0 - Calculus of kidney (2) UTI (urinary tract infection): Code(s): N39.0 - Urinary tract infection, site not specified (3) Dysuria: Code(s): R30.0 - Dysuria (4) Vaginal atrophy: Code(s): N95.2 - Postmenopausal atrophic vaginitis (5) History of nicotine use: Code(s): Z87.891 - Personal history of nicotine dependence Plan Macrobid 100 mg bid for 10 days. Vagifem 10 mcg twice a week. Follow up office Cystoscopy in one month. Orders: Orders AMB Urinalysis Automated Today Z13.9 - Encounter for screening, unspecified Medications: New nitrofurantoin monohyd/m-cryst 100 mg (Macrobid) must administer with a meal/food 100 mg PO BID 20 caps 0RF estradiol (Vagifem) apply vaginally Mon/Th 10 mcg vaginal 2XW 24 tabs 1RF Patient Instructions: The patient had an opportunity to ask questions regarding treatment plan. All questions were answered. Imaging, Laboratory studies and physical exam results were discussed and reviewed in detail. No major barriers to understanding were identified. The patient expressed understanding and agreement with the above treatment plan.? ? ? The patient is aware they should contact our office by phone for worsening of their current condition or the appearance of new symptoms. Compliance is encouraged with any medications and followup testing that is ordered.? ? ? It is a privilege to be allowed the opportunity to participate in the urologic care of your patient. If you have any questions or concerns regarding treatment for the above conditions please do not hesitate to contact me. The office telephone contact is [phone].? ? ? This note is constructed in part using voice recognition software. While every effort has been made to ensure accuracy tightener errors may have been included.? ? ? Yours sincerely,? ? ? Edmar Bains MD? Coding Level of Care Code Est Pt Level 4 (98994) Diagnoses Nephrolithiasis N20.0 UTI (urinary tract infection) N39.0 Dysuria R30.0 Vaginal atrophy N95.2 History of nicotine use Z87.891
== END 2023-04-18 09:01 | disposition home or self-care (01) ==
PROVIDERS: PCP Internal Medicine; Visit Provider Urology
DX: N20.0 Calculus of kidney (principal); N39.0 Urinary tract infection, site not specified; R30.0 Dysuria; N95.2 Postmenopausal atrophic vaginitis; Z87.891 Personal history of nicotine dependence; Z13.9 Encounter for screening, unspecified
CPT/HCPCS: 99214

== ENCOUNTER 2023-04-18 08:19 | Outpatient (REF) | payer MEDICARE, SELFPAY | END 2023-04-18 08:20 | disposition home or self-care (01) | LOC: HO.LAB 08:19 | PROVIDERS: Visit Provider Urology | DX: R31.9 Hematuria, unspecified (principal); N39.0 Urinary tract infection, site not specified; R30.0 Dysuria; N95.2 Postmenopausal atrophic vaginitis; Z87.891 Personal history of nicotine dependence; Z87.442 Personal history of urinary calculi; Z79.899 Other long term (current) drug therapy | CPT/HCPCS: 81003; 99212 ==

== ENCOUNTER 2023-04-19 10:36 | Outpatient (REF) | payer MEDICARE, SELFPAY | END 2023-04-19 10:37 | disposition home or self-care (01) | LOC: HO.LAB 10:36 | PROVIDERS: Visit Provider Urology | DX: N39.0 Urinary tract infection, site not specified (principal) | CPT/HCPCS: 87086 ==

== ENCOUNTER 2023-05-16 13:08 | Outpatient (AMB) | payer MEDICARE, SELFPAY ==
[2023-05-16 13:10] VITALS: BP 124/68; PULSE 70; O2SAT 98; BMI 19.5
--- NOTE | 2023-05-16 13:10 | A.OFFVIS_ITS ---
Intake Vital Signs 05/16/23 13:10 Height 5 ft 10 in Weight 136 lb BMI 19.5 BP 124/68 Blood Pressure Location Rt brachial Position Sitting Pulse 70 Pulse Source Pulse Oximeter Pulse Oximetry (%) 98 Oxygen Delivery Method Room Air Intake Visit Reasons: persistent cough Tax Agent Required: No Supervisor Assembly: Supervisor Assembly offered & declined Accompanied by: Self / Same As Patient Allergies sulfur Allergy (Severe, Verified 05/16/23 13:15) Nausea and Vomiting montelukast [Singulair] Adverse Reaction (Severe, Verified 05/16/23 13:15) Headache Medication List - Last Reconciled 05/16/23 by Shikha Dumont LPN albuterol sulfate 90 mcg/actuation (Ventolin HFA) 2 puffs inhalation Q6H PRN azelastine 2 sprays intranasal BID 30 days azithromycin 500 mg PO DAILY 5 days cetirizine 10 mg PO DAILY cholecalciferol (vitamin D3) 125 mcg PO DAILY 90 days estradiol (Vagifem) 10 mcg vaginal 2XW Fasenra (benralizumab) 30 mg subcut Q8W 360 days NS fluticasone propion-salmeterol 250-50 mcg/dose (Wixela Inhub) 1 ea inhalation BID fluticasone propionate 50 mcg/actuation 2 sprays intranasal DAILY 30 days HPI persistent cough HPI Details Mahi is a very pleasant 68 year old female, former smoker, followed for asthma, hypersensitivity pneumonitis and allergic rhinitis. At baseline, she is well controlled on Fasenra. Today she presents for an acute visit. About a week ago she reports fever, chills, productive cough with white tenacious sputum and prescribed azithromycin 500 mg x 5 days and robitussin DM with no improvement in symptoms. She also began to develop dyspnea, chest tightness and wheezing. She reports granddaughter with similar symptoms. She notes that she started using her Wixela the last three days. [facility] Medical History Tubular adenoma of colon Severe persistent asthma Chronic allergic rhinitis Eosinophilia Hypersensitivity pneumonitis Rash and nonspecific skin eruption Vitamin D deficiency Non-toxic multinodular goiter Osteoporosis Surgical History S/P thyroid biopsy History of ventral hernia repair History of hysterectomy History of cholecystectomy History of cystoscopy History of colonoscopy History of esophagogastroduodenoscopy (EGD) Family History Father Hypertension Myocardial infarct Mother Hypertension Social History (Updated 05/16/23 @ 13:18 by Shikha Dumont LPN) Patient Tobacco Use Status: Former Tobacco user Tobacco use type: Cigarette Cigarettes Per Day: 10 Years Smoked: 20 Review of Systems Const Denies chills, Denies excessive sweating, Denies fever(s), Denies headache(s) and Denies night sweats Eyes Denies dry eyes, Denies irritation and Denies itchy eyes ENT Reports Normal hearing present, Denies headache(s), Denies nasal discharge, Denies post nasal drip and Denies sore throat Card Denies chest pain, Denies chest pain at rest, Denies chest pain with activity, Denies claudication, Denies leg edema, Denies orthopnea and Denies paroxysmal nocturnal dyspnea Resp Denies pain on inspiration, Denies pain with cough and Denies stridor Musc Denies myalgias Neuro Reports Normal hearing present and Denies headache(s) Endo Denies excessive sweating Brendan/Lymph Denies lymphadenopathy Aller/Immun Denies itchy eyes and Denies seasonal rhinorrhea Physical Exam Vital Signs: Last Vital Signs Pulse 70 05/16/23 13:10 BP 124/68 05/16/23 13:10 Pulse Ox 98 05/16/23 13:10 Oxygen Delivery Method Room Air 05/16/23 13:10 BMI result Body Mass Index 19.5 Const General: cooperative, no acute distress, well developed and alert Orientation/consciousness: patient oriented x3 Limitations: no limitations HEENT Head: Yes normal to inspection, Yes normocephalic and Yes atraumatic Ears: hearing grossly normal bilaterally and external ears normal Eyes General: appearance normal, both eyes and all related structures Eyelids: Yes eyelids normal Sclerae: sclerae normal EOM: EOMs intact bilaterally Neck Neck: Yes normal visual inspection and Yes no lymphadenopathy Lymphatic: no lymphadenopathy noted Chest Chest palpation & inspection: normal inspection of the chest Resp Other: diminished air movement, improved with duoneb Effort & Inspection: normal respiratory effort, able to speak in complete sentences, no audible wheezes, no stridor, not tachypneic, no tripod positioning and no use of accessory muscles Cardio Jugular venous distension: no JVD Rate: regular rate Rhythm: regular rhythm Skin Other: warm, dry General skin exam: no rashes or lesions noted Neuro General: patient oriented x3 Cranial nerves: Yes Normal hearing present Cognition (Neuro): normal cognition Gait exam (Neuro): Normal gait present Extrem General: Yes normal to inspection, Yes capillary refill normal, Yes no clubbing, cyanosis or edema and Yes no pedal edema Psych Appearance: grossly normal and well kempt Speech and movement: Normal speech and movement present and Clear speech present Affect: normal affect Attitude: cooperative Thought process: Normal thought process present Thought content: Normal thought content present Insight: Good insight present (Psych) Judgement: Good judgement present (Psych) Office Procedures Nebulizer Treatment Nebulizer Treatment 05159-Imjurslyn/MDI RX initial, or Nebulizer Subsequent Treatment Office Meds ipratropium 0.5 mg-albuterol 3 mg (2.5 mg base)/3 mL nebulization soln Performing Provider: Pamela Gallegos NP Performing Location: [facility] [place] Pulmonology Services-[facility] Administered by: Shikha Dumont LPN on 05/16/23 13:38 Dose Route Admin Location Dispensed Lot Number Expiration Date [facility] Solar Design Engineer 3 mL inhalation 3 mL [id number] 09/21/24 8491-8208-08 [facility] Assessment & Plan Assessment & Plan (1) Bronchitis: Code(s): J40 - Bronchitis, not specified as acute or chronic (2) Severe persistent asthma: Code(s): J45.50 - Severe persistent asthma, uncomplicated Qualifiers: Asthma complication type: uncomplicated Qualified Code(s): J45.50 - Severe persistent asthma, uncomplicated Plan Mahi continues with bronchitic symptoms and now with chest tightness and wheeze. Nebulizer treatment given in office with symptomatic improvements and increased air movement bilaterally. Gave nebulizer in office for home use. Advised to use duoneb q6-8 hours PRN wheeze/chest tightness and to continue to use Wixela for the next 2-3 weeks. Symptoms persisted despite azithromycin, will send in vantin. Patient aware if symptoms do not improve over the next 48-72 hours to get CXR and call office. Order for CXR placed. If symptoms worsen, aware to seek emergent care. All questions were answered and patient in ag reement of plan. Will follow up with Dr. Weinstein for regularly scheduled appointment. Orders: Orders AMB Nebulizer Treatment Today J45.50 - Severe persistent asthma, uncomplicated XR chest 2V Today J40 - Bronchitis, not specified as acute or chronic Medications: New cefpodoxime must administer with a meal/food 200 mg PO BID 20 tabs 0RF benzonatate 150 mg PO BID-TID PRN 30 caps 0RF cough ipratropium-albuterol 0.5 mg-3 mg(2.5 mg base)/3 mL 3 mL inhalation Q6H PRN 90 mL 0RF wheezing Coding Level of Care Code Est Pt Level 3 (90528) Diagnoses Bronchitis J40 Severe persistent asthma without complication J45.50 Asthma complication type: uncomplicated CPT Codes Nebulizer Treatment - Nebulizer Treatment, initial or subsequent: 30029- Nebulizer/MDI RX initial, or Nebulizer Subsequent Treatment ([id number])
== END 2023-05-16 13:55 | disposition home or self-care (01) ==
LOC: HO.HPSW 13:08
PROVIDERS: PCP Internal Medicine; Visit Provider Nurse Practitioner Family
DX: J40 Bronchitis, not specified as acute or chronic (principal); J45.50 Severe persistent asthma, uncomplicated
CPT/HCPCS: 99213

== ENCOUNTER → 2023-05-16 13:08 | Outpatient (BNVA) | payer MEDICARE, SELFPAY | PROVIDERS: PCP Internal Medicine; Visit Provider Nurse Practitioner Family | DX: J45.50 Severe persistent asthma, uncomplicated (principal); J40 Bronchitis, not specified as acute or chronic | CPT/HCPCS: 94640; 99212 ==

== ENCOUNTER 2023-05-18 10:19 | Outpatient (AMB) | payer MEDICARE, SELFPAY ==
--- NOTE | 2023-05-18 10:51 | A.OFFVIS_ITS ---
Intake Intake Visit Reasons: cysto Intake Note: Patient presents today for a CYSTOSCOPY Procedure: Meds: Estradiol Allergies to Antibiotic: No Known Allergies Blood Thinner: None Urinalysis test cleared for Cysto Disposable Uro-G Cystoscope Cannula: Lot: [id number] Exp: 12/05/2024 Physician Primary Care Sports Medicine Required: No Turkish Rubber: Turkish Rubber Present Accompanied by: Self / Same As Patient Allergies sulfur Allergy (Severe, Verified 05/16/23 13:15) Nausea and Vomiting montelukast [Singulair] Adverse Reaction (Severe, Verified 05/16/23 13:15) Headache HPI HPI Comments History of Present Illness Details Mahi is a 68-year-old female who presents today to the office for cystoscopy. 05/18/2023? She is followed today for a Cystoscopy procedure.? She was last seen by me on 04/18/2023 for hematuria. She was treated with Abx. Macrobid 100 mg bid for 10 days, and Vagifem 10 mcg twice a week was ordered during that time. The patient was advised to follow up office Cystoscopy in one month at that time. I reviewed the urine culture results from 04/19/2023 which came back 50,000 to 100,000 cfu/ml mixed bacterial marizol 05/18/2023: Evaluation today?UA? leukocy josh: negative; blood: negative. Cystoscopy procedure: Consent was obtained for Cystoscopy procedure. Cystoscopy finding: mild bladder wall thickening; no suspicious bladder lesions noted. 05/18/2023: Plan: To continue vagifem. Renal US in 02/2024, and follow-up with Nurse Practitioner to discuss the results. [facility] Medical History Tubular adenoma of colon Severe persistent asthma Chronic allergic rhinitis Eosinophilia Hypersensitivity pneumonitis Rash and nonspecific skin eruption Vitamin D deficiency Non-toxic multinodular goiter Osteoporosis Surgical History S/P thyroid biopsy History of ventral hernia repair History of hysterectomy History of cholecystectomy History of cystoscopy History of colonoscopy History of esophagogastroduodenoscopy (EGD) Family History Father Hypertension Myocardial infarct Mother Hypertension (Updated 05/16/23 @ 13:18 by Shikha Dumont LPN) Patient Tobacco Use Status: Former Tobacco user Tobacco use type: Cigarette Cigarettes Per Day: 10 Years Smoked: 20 Review of Systems Const All systems reviewed & are unremarkable except as noted in HPI and below Reports no additional complaints Eyes Reports no additional complaints ENT Reports no additional complaints Card Denies dyspnea Resp Denies cough and Denies dyspnea GI Reports no additional complaints Reports no additional complaints Musc Reports no additional complaints Skin/Breast Denies rash and Denies unusual bruising Neuro Reports no additional complaints Psych Reports no additional complaints Endo Reports no additional complaints Brendan/Lymph Reports no additional complaints Aller/Immun Reports no additional complaints Office Procedures Cystoscopy Consent Discussed risk and benefit or proposed procedure with the patient. Information consent for procedure given to the patient. Discussed technical aspects, risks, benefits and alternatives in full. Addressed all of the patient's questions and concerns regarding the procedure. The patient demonstrated knowledge and understanding. They wish to proceed with this procedure. Preparation The patient was prepped in the usual manner. A kineseologist was present and in the room. Genitalia was prepped with betadine solution in a sterile manner. Lidocaine Jelly 2% was placed into the urethra and 16Fr flexible Olympus cystoscope was inserted into the meatus after adequate lubrication. Procedure Time out per protocol performed. Bladder Inspection Bladder Inspection: The bladder was inspected in its entirety with utilization retroflexion displaying: Tumor(s): none visualized Trabeculation: mild/mod Mucosal Erthema: N/A Orifices: normal shape and position Urethra: normal Cystoscopy findings: mild bladder wall thickening; no suspicious bladder lesions noted. [id number] DISPOSABLE SCOPE URO-G FLEXIBLE SCOPE Procedure code (CPT) selection complete Office Meds lidocaine HCl 2 % mucosal jelly in applicator Performing Provider: Edmar Bains MD [facility] Administered by: Justino Doyle LPN on 05/18/23 11:32 Dose Route Admin Location Dispensed Lot Number Expiration Date NDC Rag Room Supervisor 10 mL intra-urethral 20 mL naproxen 500 mg tablet Performing Provider: Edmar Bains MD [facility] Administered by: Justino Doyle LPN on 05/18/23 11:32 Dose Route Admin Location Dispensed Lot Number Expiration Date NDC Rag Room Supervisor 500 mg PO 1 tab ciprofloxacin HCl 500 mg tablet Performing Provider: Edmar Bains MD Performing [facility] Administered by: Justino Doyle LPN on 05/18/23 11:32 Dose Route Admin Location Dispensed Lot Number Expiration Date NDC Rag Room Supervisor 500 mg PO 1 tab Results AMB Urinalysis, Automated UA Leukoctes 0 Sangeeta/uL Last Edit by TANA Leong on 05/18/23 11:28 UA Nitrite Negative Last Edit by TANA Leong on 05/18/23 11:28 UA Urobilinogen 0.2 mg/dL Last Edit by TANA Leong on 05/18/23 11:2 8 UA Protein 0 mg/dL Last Edit by TANA Leong on 05/18/23 11:28 UA pH 6.0 Last Edit by TANA Leong on 05/18/23 11:28 UA Blood 0 Cosmo/uL Last Edit by TANA Leong on 05/18/23 11:28 UA Specific [place] 1.020 Last Edit by TANA Leong on 05/18/23 11: 28 UA Ketone Negative Last Edit by TANA Leong on 05/18/23 11:28 UA Bilirubin 0 mg/dL Last Edit by TANA Leong on 05/18/23 11:28 UA Glucose 0 mg/dL Last Edit by TANA Leong on 05/18/23 11:28 Results Reviewed Results Reviewed: Laboratory Last Values Urine pH (Auto) 6.0 05/18/23 11:27 Specific [place] (Auto) 1.020 05/18/23 11:27 Urine Protein (Auto) 0 mg/dL 05/18/23 11:27 Glucose (UA)(Auto) 0 mg/dL 05/18/23 11:27 Urine Ketones (Auto) Negative 05/18/23 11:27 Urine Blood (Auto) 0 Cosmo/uL 05/18/23 11:27 Urine Nitrite (Auto) Negative 05/18/23 11:27 Urine Bilirubin (Auto) 0 mg/dL 05/18/23 11:27 Urine Urobilinogen (Auto) 0.2 mg/dL 05/18/23 11:27 Leukocyte Esterase (Auto) 0 Sangeeta/uL 05/18/23 11:27 Ordered:? Urine Culture? Procedure?Result?Verified?Site ? Urine Culture? Final?04/20/23-1134 ? Report Result?50,000 to 100,000 cfu/ml ? Mixed bacterial marizol characteristic of ? urogenital contamination. Assessment & Plan Assessment & Plan (1) Nephrolithiasis: Code(s): N20.0 - Calculus of kidney (2) Vaginal atrophy: Code(s): N95.2 - Postmenopausal atrophic vaginitis (3) History of nicotine use: Code(s): Z87.891 - Personal history of nicotine dependence (4) Hematuria: Code(s): R31.9 - Hematuria, unspecified Plan To continue vagifem. Renal US in 02/2024, and follow-up with Nurse Practitioner to discuss the results. Orders: Orders AMB Urinalysis Automated 05/18/23 Z13.9 - Encounter for screening, unspecified AMB Cystoscopy 05/18/23 R30.0 - Dysuria Medications: Discontinued benzonatate Discontinued Reason: Insurance Denied 150 mg PO BID-TID PRN 30 caps 0RF cough Patient Instructions: The patient had an opportunity to ask questions regarding treatment plan. All questions were answered. Imaging, Laboratory studies and physical exam results were discussed and reviewed in detail. No major barriers to understanding were identified. The patient expressed understanding and agreement with the above treatment plan.? ? ? The patient is aware they should contact our office by phone for worsening of their current condition or the appearance of new symptoms. Compliance is encouraged with any medications and followup testing that is ordered.? ? ? It is a privilege to be allowed the opportunity to participate in the urologic care of your patient. If you have any questions or concerns regarding treatment for the above conditions please do not hesitate to contact me. The office telephone contact is [phone].? ? ? This note is constructed in part using voice recognition software. While every effort has been made to ensure accuracy engine repair supervisor errors may have been included.? ? ? Yours sincerely,? ? ? Edmar Bains MD? Coding Level of Care Code Procedure Only Diagnoses Nephrolithiasis N20.0 Vaginal atrophy N95.2 History of nicotine use Z87.891 Hematuria R31.9 CPT Codes Cystoscopy - CPT: 64162-[id number] ([id number])
== END 2023-05-18 12:23 | disposition home or self-care (01) ==
PROVIDERS: PCP Internal Medicine; Visit Provider Urology
DX: N20.0 Calculus of kidney (principal); N95.2 Postmenopausal atrophic vaginitis; Z87.891 Personal history of nicotine dependence; R31.9 Hematuria, unspecified
CPT/HCPCS: 52000

== ENCOUNTER → 2023-05-18 10:19 | Outpatient (BNVA) | payer MEDICARE, SELFPAY | PROVIDERS: PCP Internal Medicine; Visit Provider Urology | DX: N20.0 Calculus of kidney (principal); N95.2 Postmenopausal atrophic vaginitis; Z87.891 Personal history of nicotine dependence | CPT/HCPCS: 52000; 81003 ==

== ENCOUNTER 2023-05-20 08:40 | Outpatient (REF) | payer MEDICARE, SELFPAY ==
--- NOTE | ~2023-05-20 | XR_ITS ---
EXAMINATION: XR CHEST CLINICAL INFORMATION: Bronchitis COMPARISON: 03/18/2023 TECHNIQUE: 2 views of the chest were obtained. FINDINGS: Heart, mediastinum, pulmonary vessels within normal limits. Mild biapical pleural thickening. Stable appearance of the chandler. Minor diaphragmatic tenting. No vascular congestion, consolidations or effusions. Surgical clips right medial abdomen. XR/XR chest 2V IMPRESSION: No acute cardiopulmonary disease.
== END 2023-05-20 08:41 | disposition home or self-care (01) ==
LOC: HO.HMGCX 08:40
PROVIDERS: PCP Internal Medicine; Visit Provider Nurse Practitioner Family
DX: J40 Bronchitis, not specified as acute or chronic (principal)
CPT/HCPCS: 71046

== ENCOUNTER 2023-06-02 08:46 | Outpatient (REF) | payer MEDICARE, SELFPAY | END 2023-06-02 08:47 | disposition home or self-care (01) | LOC: HO.MDS 08:46 | PROVIDERS: Visit Provider Hospitalist | DX: J45.50 Severe persistent asthma, uncomplicated (principal) | CPT/HCPCS: 96372 ==

== ENCOUNTER 2023-07-28 08:48 | Outpatient (REF) | payer MEDICARE, SELFPAY | END 2023-07-28 08:49 | disposition home or self-care (01) | LOC: HO.MDS 08:48 | PROVIDERS: Visit Provider Hospitalist | DX: J45.50 Severe persistent asthma, uncomplicated (principal) | CPT/HCPCS: 96372 ==

== ENCOUNTER 2023-09-22 08:49 | Outpatient (REF) | payer MEDICARE, SELFPAY ==
[2023-09-22 08:56] VITALS: BMI 19.7
[2023-09-22 08:57] VITALS: BP 130/61; PULSE 80; RESP 18; TEMP 36.1; O2SAT 98
== END 2023-09-22 08:50 | disposition home or self-care (01) ==
LOC: HO.MDS 08:49
PROVIDERS: Visit Provider Hospitalist
DX: J45.50 Severe persistent asthma, uncomplicated (principal)
CPT/HCPCS: 96372

== ENCOUNTER 2023-12-27 13:41 | Outpatient (REF) | payer MEDICARE, SELFPAY ==
[2023-12-27 16:16] LABS: Appearance Urine Clear; Color Urine Yellow; Glucose Urine UA Negative (Negative); Leukocyte Esterase Urine Small (1+) (Negative); Nitrite Urine Negative (Negative); Specific Gravity - Urine <= 1.005 (1.005-1.025); UMIC TRIGGER UA YES; Urine Blood Negative (Negative); Urine Ketones Negative (Negative); Urine Protein Negative (Neg-Trace)
[2023-12-27 16:22] LABS: Bacteria Urine None Seen (None Seen); Hyaline Casts Urine 0-2 /LPF (0-2); RBC Urine 0-2 /HPF (0-2); Squamous Epithelial Cell Urine 0-2 /HPF (0-2)
== END 2023-12-27 13:42 | disposition home or self-care (01) ==
LOC: HO.HMGCLDS 13:41
PROVIDERS: PCP Internal Medicine; Visit Provider Urology
DX: R30.0 Dysuria (principal); N39.0 Urinary tract infection, site not specified
CPT/HCPCS: 81001; 87086

== ENCOUNTER 2024-04-26 08:51 | Outpatient (AMB) | payer MEDICARE, SELFPAY ==
[2024-04-26 08:55] VITALS: BP 132/60; PULSE 60; O2SAT 100; BMI 19.3
--- NOTE | 2024-04-26 08:55 | A.OFFVIS_ITS ---
Vital Signs 04/26/24 08:55 Height 5 ft 10 in Weight 134 lb 7.712 oz BMI 19.3 BP 132/60 Blood Pressure Location Lt brachial Position Sitting Pulse 60 Pulse Source Pulse Oximeter Pulse Oximetry (%) 100 Oxygen Delivery Method Room Air Intake Visit Reasons: asthma Suppression Crew Leader Required: No Allergies sulfur Allergy (Severe, Verified 04/26/24 08:58) Nausea and Vomiting montelukast [Singulair] Adverse Reaction (Severe, Verified 04/26/24 08:58) Headache HPI Comments Details: The patient is a 69 y/o woman with asthma. She was briefly hospitalized at [facility] for worsening respiratory symptoms and significant wheezing. She was found to have significant bronchitis. During the workup she had immunoglobulin levels checked were normal. She had a barium swallow was reassuring, although she did have slight stasis in the proximal esophagus. No evidence of any reflux. She was treated in the hospital and started on Breo. I did see her when she was in a hospital significant wheezing. She responded well to the inhaler therapy and also to the steroids. The question is if the she has some underlying COPD or asthmatic bronchitis picture now that she is discharged back she is breathing well. She has been using some omeprazole for possibility of reflux disease which appears to help in the cough. However, she is having additional nasal congestion moderate in severity with postnasal drip and also significant stuffiness of the nose and hoarseness. Patient also had blood work demonstrating elevations in her eosinophil suggesting eosinophilic asthma phenotype in addition to that she had a positive hypersensitivity panel to mold including penicillium and Cladospirium. The patient does have mold issues at home. She is also using her Claritin and also Benadryl because of what appears to be atopic dermatitis significant pruritus in her soles and palms. At this point she is getting maximize and respiratory therapy. Based on his significant allergic rhinitis hypersensitivity pneumonitis asthma and now at the atopic dermatitis it will be reasonable to consider biologic therapy. Her eosinophils were significant elevated during the last evaluation approximately back in May. Will re-draw her blood work to assess her eosinophils and consider biologic therapy. 04/26/2024 the patient is here for a pulmonary follow-up visit. Overall she is doing very good. Now that we are going to the fall and with ragweed season she is starting to have some nasal congestion. She had to take some Zyrtec. But for the most part she is been doing great on the Fasenra injections. Her asthma and also chronic rhinitis allergic rhinitis have dramatically improved. She denies any significant wheezing chest tightness or coughing. She is not having any significant adverse reactions from the biologic therapy at this time. We did review her PFTs and appear to show some improvement in her the diffusing capacity. Her other numbers are also excellent. Her blood work also reassuring without any evidence of any eosinophilia. The patient also had a chest x-ray that was without any acute disease. Overall the patient is doing very well on the current therapy. She does complain about having dyspepsia. She does have some dilation of her esophagus on her last CT chest. We will plan to perform a barium swallow. Will continue this current therapy will follow-up in a year's time. [facility] Medical History Tubular adenoma of colon Severe persistent asthma Chronic allergic rhinitis Eosinophilia Hypersensitivity pneumonitis Rash and nonspecific skin eruption Vitamin D deficiency Non-toxic multinodular goiter Osteoporosis Surgical History S/P thyroid biopsy History of ventral hernia repair History of hysterectomy History of cholecystectomy History of cystoscopy History of colonoscopy History of esophagogastroduodenoscopy (EGD) Family History Father Hypertension Myocardial infarct Mother Hypertension Social History (Updated 05/16/23 @ 13:18 by Shikha Dumont LPN) Patient Tobacco Use Status: Former Tobacco user Tobacco use type: Cigarette Cigarettes Per Day: 10 Years Smoked: 20 Review of Systems Const Denies night sweats ENT Denies change in voice, Denies lip swelling, Denies mouth pain, Reports nasal congestion, Reports nasal discharge and Denies tongue swelling Card Denies chest pain and Denies dyspnea Resp Reports cough, Denies dyspnea and Denies wheezing GI Reports dyspepsia and Reports heartburn Musc Denies no additional complaints Neuro Denies Neuro-related abnormal movements Psych Denies no additional complaints Brendan/Lymph Denies easy bleeding and Denies lymphadenopathy Aller/Immun Denies lip swelling, Denies tongue swelling and Denies wheezing Physical Exam Vital Signs: Last Vital Signs Pulse 60 04/26/24 08:55 BP 132/60 04/26/24 08:55 Pulse Ox 100 04/26/24 08:55 Oxygen Delivery Method Room Air 04/26/24 08:55 BMI result Body Mass Index 19.3 Const General: alert Neck Neck: Yes normal visual inspection, Yes full ROM and Yes no lymphadenopathy Chest Chest palpation & inspection: normal inspection of the chest Resp Effort & Inspection: normal respiratory effort Auscultation: clear to auscultation bilaterally and no wheezes Cardio Rate: regular rate Rhythm: regular rhythm Heart sounds: S1 normal heart sound present and S2 normal heart sound present GI Palpation (GI): Soft to palpation and nontender Auscultation: normal bowel sounds Skin General skin exam: rashes and/or lesions noted Assessment & Plan Assessment & Plan (1) Severe persistent asthma: Code(s): J45.50 - Severe persistent asthma, uncomplicated Category: Medical Qualifiers: Asthma complication type: uncomplicated Qualified Code(s): J45.50 - Severe persistent asthma, uncomplicated (2) Chronic allergic rhinitis: Code(s): J30.9 - Allergic rhinitis, unspecified Category: Medical (3) Eosinophilia: Comment: eosinophiliac asthma per pulmonology H&P Code(s): D72.10 - Eosinophilia, unspecified Category: Medical Qualifiers: Eosinophilia type: drug rash with eosinophilia and systemic symptoms Qualified Code(s): D72.12 - Drug rash with eosinophilia and systemic symptoms syndrome; T50.905A - Adverse effect of unspecified drugs, medicaments and biological substances, initial encounter (4) Hypersensitivity pneumonitis: Code(s): J67.9 - Hypersensitivity pneumonitis due to unspecified organic dust Category: Medical Plan Continue respiratory therapy with Wixela daily continue nasal steroid and nasal rinsing short-acting beta agonist as needed continue Fasenra every 2 months barium swallow F/U 1 yr Orders: Orders [place] barium swallow Today K21.9 - Gastro-esophageal reflux disease without esophagitis Coding Level of Care Code Est Pt Level 4 (41088) Diagnoses Severe persistent asthma without complication J45.50 Asthma complication type: uncomplicated Chronic allergic rhinitis J30.9 Drug-induced rash with eosinophilia and systemic symptoms D72.12; T50.905A Eosinophilia type: drug rash with eosinophilia and systemic symptoms Hypersensitivity pneumonitis J67.9 Time Spent (min) 17
== END 2024-04-26 09:16 | disposition home or self-care (01) ==
PROVIDERS: PCP Internal Medicine; Visit Provider Hospitalist
DX: J45.50 Severe persistent asthma, uncomplicated (principal); J30.9 Allergic rhinitis, unspecified; D72.12 Drug rash with eosinophilia and systemic symptoms syndrome; T50.905A Adverse effect of unspecified drugs, medicaments and biological substances, initial encounter; J67.9 Hypersensitivity pneumonitis due to unspecified organic dust
CPT/HCPCS: 99214

== ENCOUNTER → 2024-04-26 08:51 | Outpatient (BNVA) | payer MEDICARE, SELFPAY | PROVIDERS: PCP Internal Medicine; Visit Provider Hospitalist | DX: J45.50 Severe persistent asthma, uncomplicated (principal); J30.9 Allergic rhinitis, unspecified; J67.9 Hypersensitivity pneumonitis due to unspecified organic dust; D72.12 Drug rash with eosinophilia and systemic symptoms syndrome; T50.905A Adverse effect of unspecified drugs, medicaments and biological substances, initial encounter | CPT/HCPCS: 99212 ==

== ENCOUNTER 2024-05-17 09:54 | Outpatient (AMB) | payer MEDICARE, SELFPAY ==
--- NOTE | 2024-05-17 10:04 | MHC.OFFVIS ---
Intake Visit Reasons: 1yr follow up/US Allergies sulfur Allergy (Severe, Verified 05/17/24 10:05) Nausea and Vomiting montelukast [Singulair] Adverse Reaction (Severe, Verified 05/17/24 10:05) Headache Medication List - Last Reconciled 05/17/24 by Edmar Bains MD albuterol sulfate 90 mcg/actuation (Ventolin HFA) 2 puffs inhalation Q6H PRN azelastine 2 sprays intranasal BID 30 days benzonatate 100 mg PO BID-TID PRN brimonidine 0.2% drps ophthalmic (eye) brinzolamide 1% drps ophthalmic (eye) cetirizine 10 mg PO DAILY cholecalciferol (vitamin D3) 125 mcg PO DAILY 90 days estradiol (Yuvafem) 10 mcg vaginal 2XW Fasenra (benralizumab) 30 mg subcut Q8W NS fluticasone propion-salmeterol 250-50 mcg/dose (Wixela Inhub) 1 ea inhalation BID fluticasone propionate 50 mcg/actuation 2 sprays intranasal DAILY 30 days ipratropium-albuterol 0.5 mg-3 mg(2.5 mg base)/3 mL 3 mL inhalation Q6H PRN latanoprost 0.005% drps ophthalmic (eye) nebulizers As directed HPI Comments Details: 05/17/24--here for follow-up recurrent UTIs, cystitis,prior workup for hematuria-negative for malignancy at that time. History kidney stones. Urinalysis today is within normal limits negative for blood. Mahi states she has not had any UTI symptoms since she has last seen. She has been the hot tub which seemed to be a stimulus to the UTI symptoms. I will renew the Vagifem. Follow-up in 1 year. Patient to call if develops symptoms prior Review of chart: 05/18/2023?Mahi is a 68-year-old female who presents today to the office for cystoscopy. She was last seen by me on 04/18/2023 for hematuria. She was treated with Abx. Macrobid 100 mg bid for 10 days, and Vagifem 10 mcg twice a week was ordered during that time. I reviewed the urine culture results from 04/19/2023 which came back 50,000 to 100,000 cfu/ml mixed bacterial marizol. 05/18/23--Cystoscopy finding: mild bladder wall thickening; no suspicious bladder lesions noted. [facility] Medical History Tubular adenoma of colon Severe persistent asthma Chronic allergic rhinitis Eosinophilia Hypersensitivity pneumonitis Rash and nonspecific skin eruption Vitamin D deficiency Non-toxic multinodular goiter Osteoporosis Surgical History S/P thyroid biopsy History of ventral hernia repair History of hysterectomy History of cholecystectomy History of cystoscopy History of colonoscopy History of esophagogastroduodenoscopy (EGD) Family History Father Hypertension Myocardial infarct Mother Hypertension Social History Patient Tobacco Use Status: Former Tobacco user Tobacco use type: Cigarette Cigarettes Per Day: 10 Years Smoked: 20 Review of Systems Const All systems reviewed & are unremarkable except as noted in HPI and below Reports no additional complaints Eyes Reports no additional complaints ENT Reports no additional complaints Card Reports no additional complaints Resp Reports no additional complaints GI Reports no additional complaints Reports as per HPI Musc Reports no additional complaints Skin/Breast Reports system reviewed and no additional complaints, except as documented Neuro Reports no additional complaints Psych Reports no additional complaints Endo Reports no additional complaints Brendan/Lymph Reports no additional complaints Aller/Immun Reports no additional complaints Results AMB Urinalysis, Automated UA Leukoctes 0 Sangeeta/uL Last Edit by HARISH Brito on 05/17/24 10:30 UA Nitrite Negative Last Edit by HARISH Brito on 05/17/24 10:30 UA Urobilinogen 0.2 mg/dL Last Edit by HARISH Brito on 05/17/24 10:30 UA Protein 0 mg/dL Last Edit by HARISH Brito on 05/17/24 10:30 UA pH 6.0 Last Edit by HARISH Brito on 05/17/24 10:30 UA Blood 0 Cosmo/uL Last Edit by HARISH Brito on 05/17/24 10:30 UA Specific [place] 1.020 Last Edit by HARISH Brito on 05/17/24 10:30 UA Ketone Negative Last Edit by HARISH Brito on 05/17/24 10:30 UA Bilirubin 0 mg/dL Last Edit by HARISH Brito on 05/17/24 10:30 UA Glucose 0 mg/dL Last Edit by HARISH Brito on 05/17/24 10:30 Results Reviewed Results Reviewed: Laboratory Last Values Urine pH (Auto) 6.0 05/17/24 10:28 Specific [place] (Auto) 1.020 05/17/24 10:28 Urine Protein (Auto) 0 mg/dL 05/17/24 10:28 Glucose (UA)(Auto) 0 mg/dL 05/17/24 10:28 Urine Ketones (Auto) Negative 05/17/24 10:28 Urine Blood (Auto) 0 Cosmo/uL 05/17/24 10:28 Urine Nitrite (Auto) Negative 05/17/24 10:28 Urine Bilirubin (Auto) 0 mg/dL 05/17/24 10:28 Urine Urobilinogen (Auto) 0.2 mg/dL 05/17/24 10:28 Leukocyte Esterase (Auto) 0 Sangeeta/uL 05/17/24 10:28 Date of Service: 03/18/23 EXAMINATION:? US RETROPERITONEAL LIMITED (RENAL ONLY) CLINICAL INFORMATION: Microscopic hematuria. COMPARISON:? Renal ultrasound 02/15/2022 and 01/29/2021. CT abdomen and pelvis 07/19/2019. FINDINGS: RIGHT KIDNEY: 9.4 x 3.4 x 4.5 cm (SAG x AP x TRV). The kidney is normal in size, contour, and echogenicity. Renal cortical thickness is normal. No calculi or focal parenchymal lesions. No hydronephrosis LEFT KIDNEY: 9.8 x 3.9 x 4.6 cm (SAG x AP x TRV). The kidney is normal in size, contour, and echogenicity. Renal cortical thickness is normal. No calculi or focal parenchymal lesions. No hydronephrosis. IMPRESSION:? Unremarkable examination Ordered:? Urine Culture? Procedure?Result?Verified?Site ? Urine Culture? Final?09/25/22 ? ? ?Organism 1?Escherichia coli ? Quant?> 100,000 cfu/mL ? E coli? M.I.C.? ? RX? --------- ---?Ampicillin?<=2? S?Ceftriaxone? <=0.25? ? ?S?Gentamicin?<=1? S?Levofloxacin?<=0.12? ? ?S?Nitrofurantoin?<=16?S?Trimethoprim/Sulfamethoxazole? <=20?S Assessment & Plan Assessment & Plan (1) Nephrolithiasis: Code(s): N20.0 - Calculus of kidney Category: Medical (2) Vaginal atrophy: Code(s): N95.2 - Postmenopausal atrophic vaginitis Category: Medical (3) History of nicotine use: Code(s): Z87.891 - Personal history of nicotine dependence Category: Medical (4) Hematuria: Code(s): R31.9 - Hematuria, unspecified Category: Medical Plan renew the Vagifem. Follow-up in 1 year. Patient to call if develops symptoms prior Orders: Orders AMB Urinalysis Automated Today Z13.9 - Encounter for screening, unspecified Medications: Refilled estradiol (Yuvafem) 10 mcg vaginal 2XW 24 tabs 3RF Patient Instructions: The patient had an opportunity to ask questions regarding treatment plan. The patient expressed understanding and agreement with the above treatment plan. The patient is aware they should contact our office by phone for worsening of their current condition or the appearance of new symptoms. Compliance is encouraged with any medications and followup testing that is ordered. It is a privilege to be allowed the opportunity to participate in the urologic care of your patient. If you have any questions or concerns regarding treatment for the above conditions please do not hesitate to contact me. The office telephone contact is [phone]. This note is constructed in part using voice recognition software. While every effort has been made to ensure accuracy clinical molecular geneticist errors may have been included. Yours sincerely, Edmar Bains MD Coding Level of Care Code Est Pt Level 4 (47373) Diagnoses Nephrolithiasis N20.0 Vaginal atrophy N95.2 History of nicotine use Z87.891 Hematuria R31.9
== END 2024-05-17 10:47 | disposition home or self-care (01) ==
PROVIDERS: PCP Internal Medicine; Visit Provider Urology
DX: N20.0 Calculus of kidney (principal); N95.2 Postmenopausal atrophic vaginitis; Z87.891 Personal history of nicotine dependence; R31.9 Hematuria, unspecified; Z13.9 Encounter for screening, unspecified
CPT/HCPCS: 99214

== ENCOUNTER → 2024-05-17 09:54 | Outpatient (BNVA) | payer MEDICARE, SELFPAY | PROVIDERS: PCP Internal Medicine; Visit Provider Urology | DX: N20.0 Calculus of kidney (principal); N95.2 Postmenopausal atrophic vaginitis; R31.9 Hematuria, unspecified; Z87.891 Personal history of nicotine dependence | CPT/HCPCS: 81003; 99212 ==

== ENCOUNTER 2024-06-27 07:35 | Outpatient (REF) | payer MEDICARE, SELFPAY ==
--- NOTE | ~2024-06-27 | FL_ITS ---
EXAMINATION: XR FLUOROSCOPY UPPER GI WITH AIR CLINICAL INFORMATION: Reflux. Dysphagia. COMPARISON: Barium swallow 2018 TECHNIQUE: Fluoroscopic air contrast upper GI examination was performed utilizing standard techniques with thin and thick barium and effervescent granules. Numerous spot images were obtained. FINDINGS: Lateral cine images of the oropharynx and hypopharynx demonstrate normal swallow mechanism with normal epiglottic inversion and soft palate elevation. No tracheal penetration, glottic or subglottic aspiration identified. No nasopharyngeal reflux present. Hypopharyngeal structures appear normal without evidence of mass or diverticulum. There was no significant cricopharyngeal achalasia. Dual and single contrast images of the esophagus demonstrate a normal caliber and contour. There is a granular appearance of the esophageal mucosa, suggestive of esophagitis. No evidence of stricture, mass, or ulcerations identified. Esophageal peristalsis was moderately disorganized. No evidence of hiatus hernia identified. No significant gastroesophageal reflux was seen during the course of the examination and on reflux views. Dual contrast and single contrast images of the stomach demonstrated a normal contour. The areae gastrica has a thickened appearance suggestive of gastritis. There are multiple tiny foci of contrast pooling in the fundus and body the stomach that may present small aphthous ulcers. No masses are seen. Contrast freely passed into the gastric antrum and duodenal bulb without delay. Single and air-contrast images of the duodenal bulb demonstrate no abnormality. The duodenal sweep has a normal appearance, course, and mucosal fold appearance. The imaged proximal jejunum has a normal fold pattern and caliber. FLUOROSCOPY TIME: 4 minutes 29 seconds Number of Spot Images: 11 Number of Cine: 15 DOSE AREA PRODUCT: 1687 uGy-m2 (microgray-meter squared) FL/FL barium swallow with air IMPRESSION: 1. Granular appearance of the esophageal mucosa, suggestive of esophagitis. 2. Moderate esophageal dysmotility. 3. Thickened appearance of the areae gastrica. In addition there are multiple tiny foci of contrast pooling in the fundus and body of the stomach. These findings are suggestive of erosive gastritis. Recommend correlation with EGD. This procedure was performed by Jhon Gerard PA-C, and supervised by Dr. Evans Electronically signed by: Fernando Evans MD 06/27/2024 03:44 PM [facility] [place]
== END 2024-06-27 07:36 | disposition home or self-care (01) ==
LOC: HO.XRAY 07:35
PROVIDERS: PCP Internal Medicine; Visit Provider Hospitalist
DX: K21.9 Gastro-esophageal reflux disease without esophagitis (principal)
CPT/HCPCS: 74221

== ENCOUNTER → 2024-06-27 07:37 | Outpatient (BNV) | payer MEDICARE, SELFPAY | PROVIDERS: PCP Internal Medicine; Visit Provider Physician Assistant Surgical | DX: K21.9 Gastro-esophageal reflux disease without esophagitis (principal); R13.10 Dysphagia, unspecified; K22.4 Dyskinesia of esophagus | CPT/HCPCS: 74221 ==

== ENCOUNTER 2024-10-24 10:22 | Outpatient (REF) | payer MEDICARE, SELFPAY ==
--- OUTSIDE RECORDS SUMMARY | 2024-10-24 12:07 | XMS_ITS | Patient Health Record ---
Author Organization [facility] Address [address] [place] [address] Care Team Providers Care Machine Clothing Man Name Role Phone Juan Alberto Mo MD Primary Care Provider UnavailMatt Vora [phone] Allergies Allergen (clinical drug ingredient) Drug/Non Drug Allergy documented on EMR Reaction Allergy Type Onset Date Status molds (uncoded) Unknown Allergy Acti ve Reason For Referral No Information Medications Medication SIG (Take, Route, Frequency, Duration) Notes Start Date End Date Status Fasenra Pen 30 MG/ML as directed Subcutaneous Active Fluticasone Propionate 50 MCG/ACT INSTILL 1 SPRAY INTO EACH NOSTRIL EVERY DAY Nasally Once a day/prn Active Breo Ellipta 200-25 MCG/INH INHALE 1 PUFF BY MOUTH DAILY Inhalation Once a day Not-Taking Albuterol Sulfate HFA 108 (90 Base) MCG/ACT INHALE 2 PUFFS BY MOUTH EVERY 6 HOURS NEEDED FOR WHEEZING/SHORTNESS OF BREATH Inhalation prn Active CVS D3 125 MCG (5000 UT) TAKE 1 CAPSULE BY MOUTH EVERY DAY Orally Once a day Active ZyrTEC Allergy Activ e Latanoprost 0.005 % Ophthalmic for 19 Active Immunizations Vaccine Route Administration Date Status Comme nts Influenza Unknown 08/25/2019 Administered Influenza Unknown 07/23/2022 Administered Influenza Unknown 07/03/2019 Refused Social History Tobacco Use: Social History Observation Description Date Details (start date - stop date) Former Smoker NA - NA Tobacco Use/Smoking Question Answer Notes Patient is a former smoker How long has it been since you last smoked? > 10 years Section Notes: Nonsmoker; occasional wine Nonsmoker; occasional wine Nonsmoker; occasional wine Nonsmoker; occasional wine Nonsmoker; occasional wine Nonsmoker; occasional wine Nonsmoker; occasional wine Nonsmoker; occasional wine Problems Problem Type SNOMED Code ICD Code Onset Dates Problem Status W/U Status Risk Notes Problem 811123723 Encounter for screening for malignant neoplasm of colon (Z12.11) Active confirmed Problem 634556845 History of adenomatous polyp of colon (Z86.010) Active confirmed Problem 28209628 Weight loss (R63.4) Active confirmed Problem 11856011 Anorexia (R63.0) Active confirmed Problem 383215374 Early satiety (R68.81) Active confirmed Problem Hiatal hernia (43326586) Hiatal hernia (K44.9) Active confirmed Problem Gastritis (0358935) Gastritis (K29.70) Active confirmed Problem 033475104774080 Pre-procedural examination (Z01.818) Active confirmed Problem Diverticulosis of colon (235846386) Diverticulosis of colon (K57.30) Active confirmed Plan Of Treatment Future Test Test Name Order Date COLONOSCOPY 05/17/2014 COLONOSCOPY 12/14/2017 UPPER GI ENDOSCOPY 07/03/2019 COLONOSCOPY 09/30/2020 COLONOSCOPY 01/04/2023 Next Appt Details Provider Name:Matt Cristobal Estrella , 10/24/2024 02:20:00 PM, [address] [facility], [address], [place], [address], Insurance Providers Payer Name Payer Address Payer Phone Subscriber Number Group Number Insured Name Patient Relationship to Insured Coverage Start Date Coverage End Date [facility] [address] [place] [address] [phone] [id number] RAVEN ALEGRE Self - patient is the insured Medical (General) History Medical History History ICD Code Her original colonoscopy was in December 2009 at which time a flat tubular adenoma was removed from the cecum--she underwent a followup colonoscopy in May 2010 which was negative for any adenomatous tissue, but a followup colonoscopy in 2011 revealed 2 small areas of tubular adenomas in the cecum. Colonoscopy 07/2014 revealed small area of adenoma in the cecum and was removed. Colonoscopy in 2014 and in 12/2017 with small tubular adenomas removed from the cecum Irritable bowel syndrome--stable Denies [place],DM,CVA,renal disease Kidney stones-06/2016--Dr. West--cystos copy and stent Allergy-induced asthma since summer 2018 --sees Dr. Weinstein EGD in 2009 with normal duodenal biopsie s--no esophagitis EGD 06/2019-bx neg for Celiac disease, n eg. Hpylori--small hiatal hernia Normal gastric emptying study in 08/[address] in 06/2019 Osteoporosis Thyroid nodule-having a biopsy in 0--benign Surgical History Surgery Date(Month/Year) JACEK CCY Abdominal wall hernia repair 1989
--- OUTSIDE RECORDS SUMMARY | 2024-10-24 12:07 | XMS_ITS ---
Author Organization [facility] Address [address] [place] [address] Care Team Providers Care Picking Table Worker Name Role Phone Juan Alberto Mo MD Primary Care Provider Unavailab Matt Champagne Unavailable [phone] REASON FOR VISIT Patient presents today for stomach issues Encounters Encounter Location Date Provider Diagnosis [facility] [address] [facility] [place] [address] 10/24/2024 Matt De La Rosa Plan Of Treatment Next Appt Details Provider Name:Matt De La Rosa , 10/24/2024 02:20:00 PM, [address] [facility], [address], [place], [address], Progress Notes * RAVEN KIDDDOB: (69 yo F)Acc No.[id number]:10/24/2024 Progress Notes Patient:?COOKIE KIDD LANDEN Provider:?Matt De La Rosa MD :1955???Age:69 Y???Sex:Female D ate:10/24/2024 Address:[address] [place], [place] [id number] Pcp:Juan Alberto Mo MD Subjective: * Chief Complaints: * ???1. Patient presents today for stomach issues. * Medical History:? Objective: * Vitals:? Assessment: Plan: * Treatment: * * The named appointment provid er may or may not be the originator of this progress note, and it is not deemed complete until electronically signed by the appointment provider. Sign off status: Pending * Provider:?Matt De La Rosa MD Date:? 025 Generated for Arlet packer/Mono/Marisol on:?10/24/2024 12:07 PM EDT
[2024-10-24 14:00] LABS: Appearance Urine Hazy; Color Urine Yellow; Glucose Urine UA Negative (Negative); Leukocyte Esterase Urine Small (1+) (Negative); Nitrite Urine Positive (Negative); Specific Gravity - Urine 1.015 (1.005-1.025); UMIC TRIGGER UA YES; Urine Blood Trace (Negative); Urine Ketones Negative (Negative); Urine Protein Negative (Neg-Trace)
[2024-10-24 14:13] LABS: Bacteria Urine 4+ (None Seen); Hyaline Casts Urine 0-2 /LPF (0-2); RBC Urine 0-2 /HPF (0-2); Squamous Epithelial Cell Urine 0-2 /HPF (0-2); WBC Urine >50 /HPF (0-5)
== END 2024-10-24 10:23 | disposition home or self-care (01) ==
LOC: HO.HMGCLDS 10:22
PROVIDERS: PCP Internal Medicine; Visit Provider Urology
DX: N39.0 Urinary tract infection, site not specified (principal)
CPT/HCPCS: 81001; 87086; 87088; 87186

== ENCOUNTER 2024-12-20 11:56 | Outpatient (REF) | payer MEDICARE, SELFPAY ==
--- OUTSIDE RECORDS SUMMARY | 2024-12-20 12:05 | XMS_ITS ---
Author Organization [facility] Address [address] [place] [address] Care Team Providers Care Boiler Shop Mechanic Name Role Phone Juan Alberto Mo MD Primary Care Provider UnavailMatt Vora Unavailable [phone] Allergies Allergen (clinical drug ingredient) Drug/Non Drug [...] series (R93.3) Active confirmed Problem Periumbilical pain (628253189) Abdominal pain, periumbilic (R10.33) Active confirmed Problem Irritable bowel syndrome (43024590) Irritable bowel syndrome (K58.9) Active confirmed Vital Signs Temperature 97.7 degrees Fahrenheit 10/25/19 25 Blood pressure systolic 001 mm Hg 10/25/19 25 Blood pressure diastolic 01 mm Hg 025 Height 70 in 10/24/2024 Weight 137.6 lbs 10/24/2024 BMI 19.74 kg/m2 10/24/2024 Procedures Procedure Date Ordered Date Performed Result Body Sit e UPPER GI ENDOSCOPY 10/24/2024 N/A Encounters Encounter Location Date Provider Diagnosis [facility] [address] [place] [address] 10/24/2024 Matt De La Rosa Abnormal upper [...] Details Provider Name:Matt Cristobal Estrella , 01/18/2025 11:00:00 AM, [address] [facility] , [place], [place], [phone], Progress Notes * RAVEN KIDDDOB: (69 yo F)Acc No.[id number]:10/24/2024 Progress Notes Patient:?COOKIE KIDD CIA Provider:?Matt De La Rosa MD :1955???Age:69 Y???Sex:Female D ate:10/24/2024 Address:[address] [place], [place] [id number] Pcp:Juan Alberto Mo MD Subjective: * Chief [...] from the cecum, Irritable bowel syndrome--stable, Denies [place],DM,CVA,renal disease, Kidney stones-06/2016--Dr. West--cystoscopy and stent, Allergy-induced [...] * Family History:?Father: dece ased, diagnosed with Heart disease, Diabetes, HTN (hypertension).?Mother: , diagnosed with HTN (hypertension).? There is [...] to help regulate the BM's?? * Procedure Codes:?11985 UPPR GI ENDOSCOPY, DIAGNOSIS * Preventive Medicine:? ??Screenings:?Fall Risk Screening?Fall Risk Assessment:?No falls in the past year,?Screening:?No falls in the past year,?Assessment:?Not performed, no reason specified,?Plan of Care:?Not documented, no reason specified.? ??Urinary Incontinence:?Urinary Incontinence?Assessment:?Absent,?Plan of care documented:?No, reason not specified.? * * The named appointment provid er may or may not be the originator of this progress note, and it is not deemed complete until electronically signed by the appointment provider. Sign off status: Pending * Provider:?Matt De La Rosa MD Date:? 025 Generated for Arlet packer/Mono/eTransmitting on:?12/20/2024 12:05 PM EDT
[2024-12-20 13:49] LABS: Appearance Urine Clear; Color Urine Yellow; Glucose Urine UA Negative (Negative); Leukocyte Esterase Urine Moderate (2+) (Negative); Nitrite Urine Positive (Negative); PH 5.5 (5.0-9.0); UMIC TRIGGER UA YES; Urine Blood Trace (Negative); Urine Ketones Trace mg/dL (Negative); Urine Protein Negative (Neg-Trace)
[2024-12-20 13:54] LABS: Bacteria Urine 4+ (None Seen); Hyaline Casts Urine 0-2 /LPF (0-2); RBC Urine 0-2 /HPF (0-2); Squamous Epithelial Cell Urine 0-2 /HPF (0-2); WBC Urine >50 /HPF (0-5)
== END 2024-12-20 11:57 | disposition home or self-care (01) ==
LOC: HO.HMGCLDS 11:56
PROVIDERS: PCP Internal Medicine; Visit Provider Urology
DX: N39.0 Urinary tract infection, site not specified (principal)
CPT/HCPCS: 81001; 87086; 87088; 87186

== ENCOUNTER 2025-01-18 09:47 | Day surgery (SDC) | payer MEDICARE, SELFPAY ==
--- OUTSIDE RECORDS SUMMARY | 2024-11-27 13:52 | XMS_ITS ---
Author Organization [facility] Address [address] [place] [address] Care Team Providers Care Export Sales Manager Name Role Phone Juan Alberto Mo MD Primary Care Provider UnavailMatt Vora Unavailable [phone] Allergies Allergen (clinical drug ingredient) Drug/Non Drug Allergy documented on EMR Reaction Allergy Type Onset Date Status molds (uncoded) Unknown Allergy Acti ve REASON FOR VISIT Patient presents today for stomach issues Medications Medication SIG (Take, Route, Frequency, Duration) Notes Start Date End Date Status CVS D3 125 MCG (5000 UT) TAKE 1 CAPSULE BY MOUTH EVERY DAY Orally Once a day Active Latanoprost 0.005 % Ophthalmic for 19 Active ZyrTEC Allergy Activ e Breo Ellipta 200-25 MCG/INH INHALE 1 PUFF BY MOUTH DAILY Inhalation Once a day Not-Taking Hyoscyamine Sulfate 0.125 MG 1 or 2 tablets on the tongue and allow to dissolve if needed for abdominal discomfort or cramps Orally every 4 hrs if needed for 30 days 10/24/2024 Active Fluticasone Propionate 50 MCG/ACT INSTILL 1 SPRAY INTO EACH NOSTRIL EVERY DAY Nasally Once a day/prn Active Fasenra Pen 30 MG/ML as directed Subcutaneous Active Albuterol Sulfate HFA 108 (90 Base) MCG/ACT INHALE 2 PUFFS BY MOUTH EVERY 6 HOURS NEEDED FOR WHEEZING/SHORTNESS OF BREATH Inhalation prn Active Social History Tobacco Use: Social History Observation Description Date Details (start date - stop date) Former Smoker NA - NA Tobacco Use/Smoking Question Answer Notes Patient is a former smoker How long has it been since you last smoked? > 10 years Section Notes: Nonsmoker; occasional wine Problems Problem Type SNOMED Code ICD Code Onset Dates Problem Status W/U Status Risk Notes Problem Abnormal upper gastrointestinal barium series (R93.3) Active confirmed Problem Periumbilical pain (835842173) Abdominal pain, periumbilic (R10.33) Active confirmed Problem Irritable bowel syndrome (66736547) Irritable bowel syndrome (K58.9) Active confirmed Vital Signs Temperature 97.7 degrees Fahrenheit 10/25/19 25 Blood pressure systolic 001 mm Hg 10/25/19 25 Blood pressure diastolic 01 mm Hg 025 Height 70 in 10/24/2024 Weight 137.6 lbs 10/24/2024 BMI 19.74 kg/m2 10/24/2024 Procedures Procedure Date Ordered Date Performed Result Body Sit e UPPER GI ENDOSCOPY 10/24/2024 N/A Encounters Encounter Location Date Provider Diagnosis [facility] [address] [place] [address] 10/24/2024 Matt De La Rosa Abnormal upper gastrointestinal barium series R93.3 ; Abdominal pain, periumbilic R10.33 and Irritable bowel syndrome K58.9 Assessments Encounter Date Diagnosis (ICD Code) Assessment Notes Treatment Notes Treatment Clinical Notes Section Notes 10/24/2024 Abnormal upper gastrointestinal barium series (ICD-10 - R93.3) 10/24/2024 Abdominal pain, periumbilic (ICD-10 - R10.33) I will send over a prescription for an antispasmodic for the abdominal discomfort 10/24/2024 Irritable bowel syndrome (ICD-10 - K58.9) Start using 2 Metamucil fiber pills once or twice a day with a lot of watyer to help regulate the BM's Plan Of Treatment Medication Medication Name Sig Start Date Stop Date Notes Hyoscyamine Sulfate 0.125 MG 1 or 2 tabl ets on the tongue and allow to dissolve if needed for abdominal discomfort or cramps Orally every 4 hrs if needed for 30 days 10/24/2024 Treatment Notes Assessment Notes Abdominal pain, periumbilic I will send over a prescription for an antispasmodic for the abdominal discomfort Irritable bowel syndrome Start using 2 M etamucil fiber pills once or twice a day with a lot of watyer to help regulate the BM's Pending Test Test Name Order Date UPPER GI ENDOSCOPY 10/24/2024 Next Appt Details Provider Name:Matt Cristobal Estrella , 01/18/2025 11:30:00 AM, [address] [facility] , [place], [place], [phone], Progress Notes * RAVEN KIDDDOB: (69 yo F)Acc No.[id number]:10/24/2024 Progress Notes Patient:?COOKIE KIDD CIA Provider:?Matt De La Rosa MD :1955???Age:69 Y???Sex:Female D ate:10/24/2024 Address:[address] [place], [place] [id number] Pcp:Juan Alberto Mo MD Subjective: * Chief Complaints: * ???1. Patient presents today for stomach issues. * Medical History:?Her origina l colonoscopy was in December 2009 at which [...] with small tubular adenomas removed from the cecum, Irritable bowel syndrome--stable, Denies [place],DM,CVA,renal disease, Kidney stones-06/2016--Dr. West--cystoscopy and stent, Allergy-induced asthma since summer 2018--sees Dr. Weinstein, EGD in 2009 with normal duodenal biopsies--no esophagitis, EGD 06/2019-bx neg for Celiac disease, neg. Hpylori--small hiatal hernia, Normal gastric emptying study in 08/2019, Neg abdominal CT in 06/2019, Osteoporosis, Thyroid nodule-having a biopsy in 06/2020--benign. * Surgical History:?JACEK , CCY , Abdominal wall hernia repair 1989. * Family History:?Father: dece ased, diagnosed with HTN (hypertension), Heart disease, Diabetes.?Mother: , diagnosed with HTN (hypertension).? There is no family history of colorectal cancer.? No family history of liver cancer. * Social History:?Tobacco Use:?Tobacco Use/Smoking?Patient is a?former smoker,?How long has it been since you last smoked??> 10 years.?Drugs/Alcohol:?Alcohol Screen?Points: 1, Interpretation: Negative.?Miscellaneous:?Marital status: . Occupation: Retired December 2017. ???Nonsmoker; occasional wine. * Medications:?Taking Fasenra Pen 30 MG/ML Solution Auto-injector as directed Subcutaneous , Taking Fluticasone Propionate 50 MCG/ACT Suspension INSTILL 1 SPRAY INTO EACH NOSTRIL EVERY DAY Nasally Once a day/prn , Taking Albuterol Sulfate HFA 108 (90 Base) MCG/ACT Aerosol Solution INHALE 2 PUFFS BY MOUTH EVERY 6 HOURS NEEDED FOR WHEEZING/SHORTNESS OF BREATH Inhalation prn , Taking CVS D3 125 MCG (5000 UT) Capsule TAKE 1 CAPSULE BY MOUTH EVERY DAY Orally Once a day , Taking ZyrTEC Allergy , Taking Latanoprost 0.005 % Solution Ophthalmic , Not-Taking/PRN Breo Ellipta 200-25 MCG/INH Aerosol Powder Breath Activated INHALE 1 PUFF BY MOUTH DAILY Inhalation Once a day , Medication List reviewed and reconciled with the patient * Allergies:?Molds. Objective: * Vitals:?Wt: 137.6 lbs, Ht: 7 0 in, BMI: 19.74 Index, BP: 001/01 mm Hg, Temp: 97.7, Wt-k.41. Assessment: * Assessment: 1.?Abnormal upper gastrointe stinal barium series - R93.3 (Primary)???2.?Abdominal pain, periumbilic - R10.33???3.?Irritable bowel syndrome - K58.9??? Plan: * Treatment: 2.?Abdominal pain, periumbilic? Notes: I will send over a prescription for an antispasmodic for the abdominal discomfort??3.?Irritable bowel syndrome? Notes: Start using 2 Metamucil fiber pills once or twice a day with a lot of watyer to help regulate the BM's?? * Procedure Codes:?13572 UPPR GI ENDOSCOPY, DIAGNOSIS * Preventive Medicine:? ??Urinary Incontinence:?Urinary Incontinence?Assessment:?Absent,?Plan of care documented:?No, reason not specified.? ??Screenings:?Fall Risk Screening?Fall Risk Assessment:?No falls in the past year,?Screening:?No falls in the past year,?Assessment:?Not performed, no reason specified,?Plan of Care:?Not documented, no reason specified.? * * The named appointment provid er may or may not be the originator of this progress note, and it is not deemed complete until electronically signed by the appointment provider. Sign off status: Pending * Provider:?Matt De La Rosa MD Date:? 025 Generated for Arelt packer/Mono/eTmirlandesmitting on:?11/27/2024 01:52 PM EDT
--- OUTSIDE RECORDS SUMMARY | 2024-11-27 13:53 | XMS_ITS | Patient Health Record ---
Author Organization [facility] Address [address] [place] [address] Care Team Providers Care Roller Mill Tender Name Role Phone Juan Alberto Mo MD Primary Care Provider UnavailMatt Vora [phone] Allergies Allergen (clinical drug ingredient) Drug/Non Drug Allergy documented on EMR Reaction Allergy Type Onset Date Status molds (uncoded) Unknown Allergy Acti ve Reason For Referral No Information Medications Medication SIG (Take, Route, Frequency, Duration) Notes Start Date End Date Status Fluticasone Propionate 50 MCG/ACT INSTILL 1 SPRAY INTO EACH NOSTRIL EVERY DAY Nasally Once a day/prn Active Fasenra Pen 30 MG/ML as directed Subcutaneous Active CVS D3 125 MCG (5000 UT) TAKE 1 CAPSULE BY MOUTH EVERY DAY Orally Once a day Active Albuterol Sulfate HFA 108 (90 Base) MCG/ACT INHALE 2 PUFFS BY MOUTH EVERY 6 HOURS NEEDED FOR WHEEZING/SHORTNESS OF BREATH Inhalation prn Active Latanoprost 0.005 % Ophthalmic for 19 Active ZyrTEC Allergy Activ e Breo Ellipta 200-25 MCG/INH INHALE 1 PUFF BY MOUTH DAILY Inhalation Once a day Not-Taking Hyoscyamine Sulfate 0.125 MG 1 or 2 tablets on the tongue and allow to dissolve if needed for abdominal discomfort or cramps Orally every 4 hrs if needed for 30 days 10/24/2024 Active Immunizations Vaccine Route Administration Date Status Comme nts Influenza Unknown 08/25/2019 Administered Influenza Unknown 07/23/2022 Administered Influenza Unknown 05/15/2024 Administered Influenza Unknown 07/03/2019 Refused Social History [...] Problem Status W/U Status Risk Notes Problem Irritable bowel syndrome (82346392) Irritable bowel syndrome (K58.9) Active confirmed Problem 133903539 Encounter for screening for malignant neoplasm of colon (Z12.11) Active confirmed Problem 269465644 History of adenomatous polyp of colon (Z86.010) Active confirmed Problem 50898803 Weight loss (R63.4) Active confirmed Problem 12509314 Anorexia (R63.0) Active confirmed Problem 740648459 Early satiety (R68.81) Active confirmed Problem Abnormal upper gastrointestinal barium series (R93.3) Active confirmed Problem Hiatal hernia (05032043) Hiatal hernia (K44.9) Active confirmed Problem Gastritis (4707507) Gastritis (K29.70) Active confirmed Problem 246902576437402 Pre-procedural examination (Z01.818) Active confirmed Problem Periumbilical pain (636908552) Abdominal pain, periumbilic (R10.33) Active confirmed Problem Diverticulosis of colon (500795292) Diverticulosis of colon (K57.30) Active confirmed Vital Signs Temperature 97.7 degrees Fahrenheit 10/24/2024 Blood pressure diastolic 01 mm Hg 10/24/2024 Height 70 in 10/24/2024 Blood pressure systolic 001 mm Hg 10/24/2024 Weight 137.6 lbs 10/24/2024 BMI 19.74 kg/m2 10/24/2024 Procedures Procedure Date Ordered Date Performed Result Body Sit e UPPER GI ENDOSCOPY 10/24/2024 N/A Encounters Encounter Location Date Provider Diagnosis [facility] [address] [place] [address] 10/24/2024 Matt De La Rosa Abnormal upper [...] help regulate the BM's Plan Of Treatment Pending Test Test Name Order Date UPPER GI ENDOSCOPY 10/24/2024 Future Test Test Name Order Date COLONOSCOPY 05/17/2014 COLONOSCOPY 12/14/2017 UPPER GI ENDOSCOPY 07/03/2019 COLONOSCOPY 09/30/2020 COLONOSCOPY 01/04/2023 Next Appt Details Provider Name:Matt De La Rosa , 01/18/2025 11:30:00 AM, [address] [place] [address] , [place], [place], [phone], Insurance Providers Payer Name Payer Address Payer Phone Subscriber Number Group Number Insured Name Patient Relationship to Insured Coverage Start Date Coverage End Date [facility] [address] [place] [phone] [id number] RAVEN ALEGRE Self - patient is the insured 4 Medical (General) History Medical History History ICD [...] from the cecum Irritable bowel syndrome--stable Denies [place],DM,CVA,renal disease Kidney stones-06/2016--Dr. West--cystos copy and stent Allergy-induced asthma since summer 2018 --sees Dr. Weinstein EGD in 2009 with normal duodenal biopsie s--no esophagitis EGD 06/2019-bx neg for Celiac disease, n eg. Hpylori--small hiatal hernia Normal gastric emptying study in 08/[address] in 06/2019 Osteoporosis Thyroid nodule-having a biopsy in 0--benign Surgical History Surgery Date(Month/Year) Abdominal wall hernia repair 1989 CCY JACEK
--- NOTE | 2025-01-17 12:25 | P.CONAN_ITS ---
HPI - Anesthesia Eval Consult details Narrative: 69yo F for Upper Endoscopy PMFSH Active Problems Active Problems: All Active Problems Hematuria (Acute) Bronchitis (Acute) History of nicotine use (Acute) Vaginal atrophy (Acute) Dysuria (Acute) UTI (urinary tract infection) (Acute) Severe persistent asthma (Acute) Eosinophilia (Acute) Hypersensitivity pneumonitis (Acute) Chronic allergic rhinitis (Acute) Vitamin D deficiency (Acute) Non-toxic multinodular goiter (Acute) Osteoporosis (Acute) Tubular adenoma of colon (Acute) Nephrolithiasis (Acute) Past Medical History Medical History Tubular adenoma of colon Severe persistent asthma Chronic allergic rhinitis Eosinophilia Hypersensitivity pneumonitis Rash and nonspecific skin eruption Vitamin D deficiency Non-toxic multinodular goiter Osteoporosis Family History Family History Father Hypertension Myocardial infarct Mother Hypertension Surgical History Surgical History S/P thyroid biopsy History of ventral hernia repair History of hysterectomy History of cholecystectomy History of cystoscopy History of colonoscopy History of esophagogastroduodenoscopy (EGD) History of Problems with Anesthesia: No Social History Social History Are you a primary customer care manager to a significant other at home: No Do you presently have visiting nurse or other home services: No Comment: with no loss of consciousness or ER visit Patient Tobacco Use Status: Former Tobacco user Tobacco use type: Cigarette Cigarettes Per Day: 10 Years Smoked: 20 Meds Allergies Allergy/AdvReac Type Severity Reaction Status Date / Time Sulfa (Sulfonamide Allergy Intermediate Nausea and Verified 01/18/25 10:14 Antibiotics) Vomiting montelukast (Singulair) AdvReac Severe Headache Verified 01/18/25 10:14 Home Medications ?Medication ?Instructions ?Recorded ?Confirmed ?Last Taken ?Type albuterol sulfate 90 mcg/actuation 2 puff inhalation Q 6H PRN Wheezing 10/07/20 01/18/25 Unknown History aerosol inhaler (Ventolin HFA) brimonidine 0.2 % eye drops 1 drp ophthalmic (eye) ALEXIA LY 04/26/24 01/18/25 Unknown History brinzolamide 1 % eye 1 drp ophthalmic (eye) DAILY 04/26/24 01/18/25 Unknown History drops,suspension latanoprost 0.005 % eye drops 1 drp ophthalmic (eye) D AILY 04/26/24 01/18/25 Unknown History nebulizers 04/26/24 01/18/25 Unknown H istory Assessment and Plan Assessment Anesthesia Assessment: Chart Reviewed Final Anesthetic Review History of Problems with Anesthesia: No
[2025-01-18 09:52] VITALS: BMI 19.0
[2025-01-18 10:12] VITALS: BP 158/71; PULSE 52; RESP 18; TEMP 36.7; O2SAT 100
[2025-01-18] MEDS: Lactated Ringers 1,000 ML 100 ML IVCONT (10:12)
--- NOTE | 2025-01-18 10:54 | P.CONAN_ITS ---
[facility] Active Problems Active Problems: All Active Problems (Updated 06/14/23 @ 11:28 by Edmar Bains MD) Hematuria (Acute) Bronchitis (Acute) History of nicotine use (Acute) Vaginal atrophy (Acute) Dysuria (Acute) UTI (urinary tract infection) (Acute) Severe persistent asthma (Acute) Eosinophilia (Acute) Hypersensitivity pneumonitis (Acute) Chronic allergic rhinitis (Acute) Vitamin D deficiency (Acute) Non-toxic multinodular goiter (Acute) Osteoporosis (Acute) Tubular adenoma of colon (Acute) Nephrolithiasis (Acute) Past Medical History Medical History Tubular adenoma of colon Severe persistent asthma Chronic allergic rhinitis Eosinophilia Hypersensitivity pneumonitis Rash and nonspecific skin eruption Vitamin D deficiency Non-toxic multinodular goiter Osteoporosis Functional capacity: independent ambulation Patient : No Family History Family History Father Hypertension Myocardial infarct Mother Hypertension Family history of problems with anesthesia: No Surgical History Surgical History S/P thyroid biopsy History of ventral hernia repair History of hysterectomy History of cholecystectomy History of cystoscopy History of colonoscopy History of esophagogastroduodenoscopy (EGD) History of Problems with Anesthesia: No Social History Social History Are you a primary inspector health care facilities to a significant other at home: No Do you presently have visiting nurse or other home services: No Comment: with no loss of consciousness or ER visit Patient Tobacco Use Status: Former Tobacco user Tobacco use type: Cigarette Cigarettes Per Day: 10 Years Smoked: 20 Have you been hit, kicked, punched, or otherwise hurt by someone within the past year? If so, by whom?: No Are you DNR?: No Advance Directives: No Advance Directives Information Provided: Yes Poor oral hygiene: No Meds Allergies Allergy/AdvReac Type Severity Reaction Status Date / Time Sulfa (Sulfonamide Allergy Intermediate Nausea and Verified 01/18/25 10:14 Antibiotics) Vomiting montelukast (Singulair) AdvReac Severe Headache Verified 01/18/25 10:14 Active Medications: Current Medications Albuterol Sulfate (Albuterol Sulfate (0.083%) 2.5 Mg/3 Ml Vial.Neb) 2.5 mg INHALE ONCE PRN PRN Reason: Shortness of Breath/Wheezing Lactated Ringer's (Lr) 1,000 mls @ 100 mls/hr IVCONT .Q10H ROSARIO Last Admin: 01/18/25 10:12 Dose: 100 mls/hr Home Medications ?Medication ?Instructions ?Recorded ?Confirmed ?Last Taken ?Type albuterol sulfate 90 mcg/actuation 2 puff inhalation Q 6H PRN Wheezing 10/07/20 01/18/25 Unknown History aerosol inhaler (Ventolin HFA) brimonidine 0.2 % eye drops 1 drp ophthalmic (eye) ALEXIA LY 04/26/24 01/18/25 Unknown History brinzolamide 1 % eye 1 drp ophthalmic (eye) DAILY 04/26/24 01/18/25 Unknown History drops,suspension latanoprost 0.005 % eye drops 1 drp ophthalmic (eye) D AILY 04/26/24 01/18/25 Unknown History nebulizers 04/26/24 01/18/25 Unknown H istory Exam Height,Weight and Vital Signs: Height 5 ft 10 in Weight 60 kg Last Vital Signs Temp 98.1 F 01/18/25 10:12 Pulse 52 01/18/25 10:12 Resp 18 01/18/25 10:12 BP 158/71 H 01/18/25 10:12 Pulse Ox 100 01/18/25 10:12 O2 Del Method Room Air 01/18/25 10:12 Airway Mallampati Class: II TM Dist: >3cm Neck ROM: Full Heart: RRR Lungs: CTA Assessment and Plan Assessment Anesthesia Assessment: Anesthesia Plan Discussed Final Anesthetic Review Family History of Problems with Anesthesia: No History of Problems with Anesthesia: No ASA Class: II Final Preanesthetic Review: Meds/Allgs Chart Reviewed, Consent Obtained/Reviewed and Anes Risks/Benef Reviewed Patient Risk: Low Procedure Risk: Low Anesthetic Plan Anesthetic Plan: MAC: Disposition: Standard PACU
[2025-01-18 12:00] VITALS: BP 92/45; PULSE 59; RESP 14; TEMP 36.2; O2SAT 95
--- NOTE | 2025-01-18 12:10 | P.BOP_ITS ---
Brief Operative Note Date of Service: 01/18/25 Pre-op diagnosis: Abdominal pain, abnormal UGI Post-op diagnosis: other (Hiatal hernia, Gastritis) Procedure: EGD with biopsies Surgeon: Matt De La Rosa MD Anesthesia: MAC Was an Earth Science Technical Officer used for this Procedure?: No Estimated blood loss (mL): 2.0 Pathology: other (A. Descending duodenum B. Gastric antrum C. EG Junction at 36cm) Condition: stable Disposition: PACU
--- NOTE | 2025-01-18 12:10 | HO.POSTANES ---
Post Anesthesia Evaluation Post Anesthesia Evaluation Date of Service: 01/18/25 Vital Signs: Vital Signs Temp Pulse Resp BP Pulse Ox O2 Del Method 01/18/25 12:00 97.1 F 59 14 92/45 L 95 Room Air 01/18/25 10:12 98.1 F 52 18 158/71 H 100 Room Air Anesthesia: Monitored Mental Status: Awake Pain Control: Satisfactory Nausea/Vomiting: None Hydration: Adequate Anesthesia-Related Issues: No Anes. Related Issues
[2025-01-18 12:15] VITALS: BP 123/57; PULSE 46; RESP 15; O2SAT 98
[2025-01-18 12:30] VITALS: BP 122/60; PULSE 45; RESP 17; TEMP 36.5; O2SAT 100
--- NOTE | 2025-01-18 22:26 | OP_ITS ---
DATE OF SERVICE: 01/18/2025 SURGEON: Matt De La Rosa MD INDICATIONS: The patient presents for evaluation of previous abdominal discomfort and abnormal upper GI series. Full consent has been obtained from her for this, including risks of bleeding and perforation. PREOPERATIVE DIAGNOSIS: POSTOPERATIVE DIAGNOSIS: PROCEDURE PERFORMED: Esophagogastroduodenoscopy with biopsies. ESTIMATED BLOOD LOSS: COMPLICATIONS: ANESTHESIA: Monitored anesthesia care. ASSISTANTS: SPECIMENS: PREOPERATIVE DIAGNOSES: Abdominal discomfort and abnormal upper GI series. POSTOPERATIVE DIAGNOSES: Abdominal discomfort and abnormal upper GI series, small hiatal hernia, rule out celiac disease, mild chronic gastritis, rule out Helicobacter pylori, rule out Sierra's esophagus. DESCRIPTION OF PROCEDURE: The patient was placed in the left lateral decubitus position. The Olympus video gastroscope was passed into the posterior oropharynx and upper esophagus under direct vision. The scope was passed slowly into the distal esophagus. The gastroesophageal junction appeared at 36 cm. There was a very minimal irregularity consistent with reflux. There was no definitive Sierra's esophagus and there was no esophagitis. There was a small hiatal hernia. The scope was advanced to the pylorus and the duodenum was cannulated to the descending portion. The duodenum including the bulb appeared normal without mass or ulceration. Biopsies were obtained from the 2nd and 3rd portions of duodenum. The scope withdrawn back into the stomach. The gastric antrum had some areas of edema and erythema, but no erosions or ulceration. There was good peristalsis. Biopsies were obtained from the gastric antrum. The scope was retroflexed visualizing the proximal stomach carefully, which appeared normal, without any sign of mass or ulceration. The scope was straightened and withdrawn back to the esophagus. Biopsies were obtained at the EG junction at 36 cm. Proximal to that the esophageal mucosa appeared normal. The scope was withdrawn from the patient. She tolerated the procedure well and was returned to the recovery area in stable condition. IMPRESSION: 1. Small hiatal hernia, gastroesophageal reflux. 2. Changes of mild chronic gastritis, rule out Helicobacter pylori. 3. Rule out celiac disease. PLAN: The results of the biopsies will be checked. At this point, she reports that she has been feeling well and her previous GI complaints have basically resolved. She is no longer having any problems with diarrhea, nor significant abdominal pain. She is not taking any medication for her stomach presently. As such, I did advise her to see me on a p.r.n. basis. I did advise that if she begins having any symptomatic reflux or other upper GI complaints, she should let me know and we can always put her on a trial of acid suppression with either a H2 laine or PPI. If things otherwise stable, I will see her for the latter part of 2025 for a followup screening colonoscopy. She will otherwise see me on a p.r.n. basis. She was advised not to use any aspirin and NSAIDs for at least a week. MD ZARA Schwartz/LEMUEL / [phone]
== END 2025-01-18 12:55 | disposition home or self-care (01) ==
PROVIDERS: PCP Internal Medicine; Visit Provider Internal Medicine
PROC: 0DJ08ZZ Inspection of Upper Intestinal Tract, Via Natural or Artificial Opening Endoscopic (ICD-10-PCS; CPT 43235; principal; 2025-01-18 11:20)
DX: K29.50 Unspecified chronic gastritis without bleeding (principal); K21.9 Gastro-esophageal reflux disease without esophagitis; K44.9 Diaphragmatic hernia without obstruction or gangrene; R93.3 Abnormal findings on diagnostic imaging of other parts of digestive tract; E55.9 Vitamin D deficiency, unspecified; E04.2 Nontoxic multinodular goiter; J45.50 Severe persistent asthma, uncomplicated; K58.9 Irritable bowel syndrome, unspecified; Z87.891 Personal history of nicotine dependence; Z79.899 Other long term (current) drug therapy
CPT/HCPCS: 43239; 88305; 88313; 88342; J2003; J2704

== ENCOUNTER 2025-01-24 09:03 | Outpatient (REF) | payer MEDICARE, SELFPAY ==
--- OUTSIDE RECORDS SUMMARY | 2025-01-24 09:18 | XMS_ITS | Patient Health Record ---
Author Organization [facility] Address [address] [place] [address] Care Team Providers Care Process Improvement Specialist Name Role Phone Juan Alberto Mo MD Primary Care Provider UnavailMatt Vora [phone] Allergies Allergen (clinical drug ingredient) Drug/Non Drug Allergy documented on EMR Reaction Allergy Type Onset Date Status molds (uncoded) Unknown Allergy Acti ve Results Component Value Reference Range Notes Pathology (Not yet reviewed by provider) Interpretation: Performing Lab:[facility], [address] [place] [phone] Notes/Report: Reason For Referral No Information Medications Medication [...] Status Risk Notes Problem Irritable bowel syndrome (91707861) Irritable bowel syndrome (K58.9) Active confirmed Problem [id number] Encounter for screening for malignant neoplasm of colon (Z12.11) Active confirmed Problem 404233392 History of adenomatous polyp of colon (Z86.010) Active confirmed Problem 55156158 Weight loss (R63.4) Active confirmed Problem 90189177 Anorexia (R63.0) Active confirmed Problem 264396077 Early satiety (R68.81) Active confirmed Problem Abnormal upper gastrointestinal barium series (R93.3) Active confirmed Problem Hiatal hernia (80217834) Hiatal hernia (K44.9) Active confirmed Problem Gastritis (9870291) Gastritis (K29.70) Active confirmed Problem 280393358847562 Pre-procedural examination (Z01.818) Active confirmed Problem Periumbilical pain (217374117) Abdominal pain, periumbilic (R10.33) Active confirmed Problem Diverticulosis of colon (794710852) Diverticulosis of colon (K57.30) Active confirmed Vital Signs Temperature 97.7 degrees Fahrenheit 10/24/2024 Blood pressure diastolic 01 mm Hg 10/24/2024 Height 70 in 10/24/2024 Blood pressure systolic 001 mm Hg 10/24/2024 Weight 137.6 lbs 10/24/2024 BMI 19.74 kg/m2 10/24/2024 Procedures Procedure Date Ordered Date Performed Result Body Sit e UPPER GI ENDOSCOPY 10/24/2024 N/A Encounters Encounter Location Date Provider Diagnosis [facility] Outpatient [address] [place] [id number] 01/18/2025 Matt [facility] [address] [place] [address] 10/24/2024 Matt De La Rosa Abnormal upper gastrointestinal barium series R93.3 ; Abdominal pain, periumbilic R10.33 and Irritable bowel syndrome K58.9 [facility] [address] [place] [address] 01/14/2025 Matt De La Rosa Assessments Encounter Date Diagnosis (ICD Code) Assessment Notes Treatment Notes Treatment Clinical Notes Section Notes 10/24/2024 Abnormal upper gastrointestinal barium series (ICD-10 - R93.3) Overall, Mahi appears well from a clinical standpoint in regard to her stable weight and her overall clinical appearance. We did review that her current symptoms of the irregular and looser bowel movements with some abdominal discomfort may very well be related to her underlying irritable bowel syndrome that has been exacerbated by some stress in relation to her son-in-law's illness of testicular cancer. Given all of her negative prior GI procedures and biopsies, I doubt this reflects anything such as inflammatory bowel disease, neoplasm, or celiac disease. I have recommended the addition of hyoscyamine as an antispasmodic and some Metamucil to see if that can help improve her irritable bowel syndrome symptoms and decrease the abdominal discomfort and loose bowel movements. I do not think colonoscopy is presently required. However, given the somewhat abnormal upper GI series and her ongoing symptoms I did recommend an upper endoscopy for further evaluation. This will be done with monitored anesthesia care. Full consent has been obtained from her for this, including risks of bleeding and perforation. Given the negative exam in 2019, including biopsies, I doubt she will be found to have any significant pathology. However, I will obtain new biopsies from the duodenum to inspect for celiac disease and from the stomach to inspect for H. pylori. She presently is not on any acid suppression therapy but depending upon the endoscopic findings and her clinical course we may want to put her on a trial of a PPI. We did review that she will be due for a follow-up colonoscopy for screening in 2025 given her longstanding history of polyps and her last exam being in 2022. Mahi was comfortable with this plan. Thank you again for allowing me to participate in Mahi's care. I shall continue to keep you advised of her progress. 10/24/2024 Abdominal pain, periumbilic (ICD-10 - R10.33) I will send over a prescription for an antispasmodic for the abdominal discomfort Overall, Mahi appears well from a clinical standpoint in regard to her stable weight and her overall clinical appearance. We did review that her current symptoms of the irregular and looser bowel movements with some abdominal discomfort may very well be related to her underlying irritable bowel syndrome that has been exacerbated by some stress in relation to her son-in-law's illness of testicular cancer. Given all of her negative prior GI procedures and biopsies, I doubt this reflects anything such as inflammatory bowel disease, neoplasm, or celiac disease. I have recommended the addition of hyoscyamine as an antispasmodic and some Metamucil to see if that can help improve her irritable bowel syndrome symptoms and decrease the abdominal discomfort and loose bowel movements. I do not think colonoscopy is presently required. However, given the somewhat abnormal upper GI series and her ongoing symptoms I did recommend an upper endoscopy for further evaluation. This will be done with monitored anesthesia care. Full consent has been obtained from her for this, including risks of bleeding and perforation. Given the negative exam in 2019, including biopsies, I doubt she will be found to have any significant pathology. However, I will obtain new biopsies from the duodenum to inspect for celiac disease and from the stomach to inspect for H. pylori. She presently is not on any acid suppression therapy but depending upon the endoscopic findings and her clinical course we may want to put her on a trial of a PPI. We did review that she will be due for a follow-up colonoscopy for screening in 2025 given her longstanding history of polyps and her last exam being in 2022. Mahi was comfortable with this plan. Thank you again for allowing me to participate in Mahi's care. I shall continue to keep you advised of her progress. 10/24/2024 Irritable bowel syndrome (ICD-10 - K58.9) Start using 2 Metamucil fiber pills once or twice a day with a lot of watyer to help regulate the BM's Overall, Mahi appears well from a clinical standpoint in regard to her stable weight and her overall clinical appearance. We did review that her current symptoms of the irregular and looser bowel movements with some abdominal discomfort may very well be related to her underlying irritable bowel syndrome that has been exacerbated by some stress in relation to her son-in-law's illness of testicular cancer. Given all of her negative prior GI procedures and biopsies, I doubt this reflects anything such as inflammatory bowel disease, neoplasm, or celiac disease. I have recommended the addition of hyoscyamine as an antispasmodic and some Metamucil to see if that can help improve her irritable bowel syndrome symptoms and decrease the abdominal discomfort and loose bowel movements. I do not think colonoscopy is presently required. However, given the somewhat abnormal upper GI series and her ongoing symptoms I did recommend an upper endoscopy for further evaluation. This will be done with monitored anesthesia care. Full consent has been obtained from her for this, including risks of bleeding and perforation. Given the negative exam in 2019, including biopsies, I doubt she will be found to have any significant pathology. However, I will obtain new biopsies from the duodenum to inspect for celiac disease and from the stomach to inspect for H. pylori. She presently is not on any acid suppression therapy but depending upon the endoscopic findings and her clinical course we may want to put her on a trial of a PPI. We did review that she will be due for a follow-up colonoscopy for screening in 2025 given her longstanding history of polyps and her last exam being in 2022. Mahi was comfortable with this plan. Thank you again for allowing me to participate in Mahi's care. I shall continue to keep you advised of her progress. Plan Of Treatment Pending Test Test Name Order Date UPPER GI ENDOSCOPY 10/24/2024 Pathology 01/18/2025 Future Test Test Name Order Date COLONOSCOPY 05/17/2014 COLONOSCOPY 12/14/2017 UPPER GI ENDOSCOPY 07/03/2019 COLONOSCOPY 09/30/2020 COLONOSCOPY 01/04/2023 Insurance Providers Payer Name Payer Address Payer Phone Subscriber Number Group Number Insured Name Patient Relationship to Insured Coverage Start Date Coverage End Date [facility] [address] [place] [address] [phone] [id number] MAHI ALEGRE Self - patient is the insured 4 Medical (General) History Medical History History ICD Code Her original colonoscopy was in December 2009 at which time a flat tubular adenoma was removed from the cecum- she underwent a followup colonoscopy in May 2010 which was negative for any adenomatous tissue, but a followup colonoscopy in 2011 revealed 2 small areas of tubular adenomas in the cecum. Colonoscopy 07/2014 revealed small area of adenoma in the cecum and was removed. Colonoscopy in 2014 and in 12/2017 with small tubular adenomas removed from the cecum Irritable bowel syndrome- stable Denies OR,DM,CVA,renal disease Kidney stones-06/2016- Dr. West- cystos copy and stent Allergy-induced asthma since summer 2018 - sees Dr. Weinstein EGD in 2009 with normal duodenal biopsie s- no esophagitis EGD 06/2019-bx neg for Celiac disease, n eg. Hpylori- small hiatal hernia Normal gastric emptying study in 08/[address] in 06/2019 Osteoporosis Thyroid nodule-having a biopsy in 0- benign Follow-up screening colonosc opy in March 2023 revealed 4 relatively small tubular adenomas removed between the cecum, ascending colon, and transverse colon. Surgical History Surgery Date(Month/Year) Abdominal wall hernia repair 1989 [facility]
[2025-01-24 10:20] LABS: Appearance Urine Cloudy; Glucose Urine UA Negative (Negative); PH 7.0 (5.0-9.0); Specific Gravity - Urine 1.020 (1.005-1.025); UMIC TRIGGER UA YES
== END 2025-01-24 09:04 | disposition home or self-care (01) ==
LOC: HO.HMGCLDS 09:03
PROVIDERS: PCP Internal Medicine; Visit Provider Urology
DX: N39.0 Urinary tract infection, site not specified (principal)
CPT/HCPCS: 81001; 87086

== ENCOUNTER 2025-04-23 09:47 | Outpatient (AMB) | payer MEDICARE, SELFPAY ==
--- OUTSIDE RECORDS SUMMARY | 2025-01-18 07:10 | XMS_ITS ---
Author Organization [facility] Address [address] [place] [address] Care Team Providers Care Perinatal Breastfeeding Assistant Name Role Phone Juan Alberto Mo MD Primary Care Provider Unavailab Matt Champagne [phone] REASON FOR VISIT abnormal gi barium series Encounters Encounter Location Date Provider Diagnosis [facility] Outpatient [address] [place], [place] [id number] 01/18/2025 Matt De La Rosa Abnormal UGI serie s R93.3 ; Gastro-esophageal reflux disease without esophagitis K21.9 and Hiatal hernia K44.9 Assessments Encounter Date Diagnosis (ICD Code) Assessment Notes Treatment Notes Treatment Clinical Notes Section Notes 01/18/2025 Abnormal UGI series (ICD-10 - R93.3) 01/18/2025 Gastro-esophagea l reflux disease without esophagitis (ICD-10 - K21.9) 01/18/2025 Hiatal hernia (ICD-10 - K44.9) Plan Of Treatment No Information Progress Notes * MARTIRAVENDOB: (70 yo F)Acc No.[id number]:01/18/2025 EGD/MAC Patient: RAVEN JOHNSON Provider: Leonor De La Rosa MD :1955 A ge:69 Y S ex:Female Date:01/18/2025 Address:[address] [place], [place] [id number] Pcp:Juan Ablerto Mo MD Subjective: * Chief Complaints: * 1 . Abnormal gi barium series. * Medical History: Objective: * Vitals: Assessment: * Assessment: 1. A bnormal UGI series - R93.3 (Primary) 2 . G curtis-esophageal reflux disease without esophagitis - K21.9 3 . H iatal hernia - K44.9 Plan: * Treatment: * Procedure Codes: 4 3239 UPPER GI ENDOSCOPY, BIOPSY * * The named appointment provid er may or may not be the originator of this progress note, and it is not deemed complete until electronically signed by the appointment provider. Sign off status: Pending * Provider: Leonor De La Rosa MD Date: 0 01/18/2025 Generated for Arlet packer/Mono/Salinasitting on: 0 04/23/2025 10:37 AM EDT
[2025-04-23 09:51] VITALS: BP 134/50; PULSE 68; O2SAT 98; BMI 18.8
--- NOTE | 2025-04-23 09:51 | MHC.OFFVIS ---
Vital Signs 04/23/25 09:51 Height 5 ft 10 in Weight 131 lb 2.801 oz BMI 18.8 BP 134/50 L Blood Pressure Location Lt brachial Position Sitting Pulse 68 Pulse Source Pulse Oximeter Pulse Oximetry (%) 98 Oxygen Delivery Method Room Air Intake Visit Reasons: Asthma Administrative Support Specialist Required: No Accompanied by: Self / Same As Patient Allergies Sulfa (Sulfonamide Antibiotics) Allergy (Intermediate, Verified 04/23/25 09:54) Nausea and Vomiting montelukast (Singulair) Adverse Reaction (Severe, Verified 04/23/25 09:54) Headache HPI Comments Details: The patient is a 70 y/o woman with asthma. She was briefly hospitalized at [facility] for worsening respiratory symptoms and significant wheezing. She was found to have significant bronchitis. During the workup she had immunoglobulin levels checked were normal. She had a barium swallow was reassuring, although she did have slight stasis in the proximal esophagus. No evidence of any reflux. She was treated in the hospital and started on Breo. I did see her when she was in a hospital significant wheezing. She responded well to the inhaler therapy and also to the steroids. The question is if the she has some underlying COPD or asthmatic bronchitis picture now that she is discharged back she is breathing well. She has been using some omeprazole for possibility of reflux disease which appears to help in the cough. However, she is having additional nasal congestion moderate in severity with postnasal drip and also significant stuffiness of the nose and hoarseness. Patient also had blood work demonstrating elevations in her eosinophil suggesting eosinophilic asthma phenotype in addition to that she had a positive hypersensitivity panel to mold including penicillium and Cladospirium. The patient does have mold issues at home. She is also using her Claritin and also Benadryl because of what appears to be atopic dermatitis significant pruritus in her soles and palms. At this point she is getting maximize and respiratory therapy. Based on his significant allergic rhinitis hypersensitivity pneumonitis asthma and now at the atopic dermatitis it will be reasonable to consider biologic therapy. Her eosinophils were significant elevated during the last evaluation approximately back in May. Will re-draw her blood work to assess her eosinophils and consider biologic therapy. 04/26/2024 the patient is here for a pulmonary follow-up visit. Overall she is doing very good. Now that we are going to the fall and with ragweed season she is starting to have some nasal congestion. She had to take some Zyrtec. But for the most part she is been doing great on the Fasenra injections. Her asthma and also chronic rhinitis allergic rhinitis have dramatically improved. She denies any significant wheezing chest tightness or coughing. She is not having any significant adverse reactions from the biologic therapy at this time. We did review her PFTs and appear to show some improvement in her the diffusing capacity. Her other numbers are also excellent. Her blood work also reassuring without any evidence of any eosinophilia. The patient also had a chest x-ray that was without any acute disease. Overall the patient is doing very well on the current therapy. She does complain about having dyspepsia. She does have some dilation of her esophagus on her last CT chest. We will plan to perform a barium swallow. Will continue this current therapy will follow-up in a year's time. 04/23/2025 the patient is here for pulmonary follow-up visit. Overall the patient has been doing okay. Now in the fall she does have additional allergy symptoms. She has a hard time with chest tightness. [id number] severity. His intermittent. She does not use her nasal sprays nor her Wixela. She is taking over going back on them. I do believe she will do better on Symbicort. I will send her a script to hopefully she can get and use instead of the Wixela. She did follow-up with GI she did undergo an endoscopy and nothing was significant regarding her abnormal barium swallow. Overall the patient is doing well we did look at her last chest x-ray from 2022 demonstrating some just some chronic changes. Will plan to repeat the x-ray next year or sooner if she develops any worsening symptoms. Overall she is doing good will have her come back in a year she will continue with Fasenra since it has been so affecting beneficial in stabilizing her symptoms and improving her quality of life. [facility] Medical History Tubular adenoma of colon Severe persistent asthma Chronic allergic rhinitis Eosinophilia Hypersensitivity pneumonitis Rash and nonspecific skin eruption Vitamin D deficiency Non-toxic multinodular goiter Osteoporosis Surgical History S/P thyroid biopsy History of ventral hernia repair History of hysterectomy History of cholecystectomy History of cystoscopy History of colonoscopy History of esophagogastroduodenoscopy (EGD) Family History Father Hypertension Myocardial infarct Mother Hypertension Social History Are you a primary child care nurse to a significant other at home: No Do you presently have visiting nurse or other home services: No Comment: with no loss of consciousness or ER visit Patient Tobacco Use Status: Former Tobacco user Tobacco use type: Cigarette Cigarettes Per Day: 10 Years Smoked: 20 Review of Systems Const Denies night sweats ENT Denies change in voice, Denies lip swelling, Denies mouth pain, Reports nasal congestion, Reports nasal discharge and Denies tongue swelling Card Denies chest pain and Denies dyspnea Resp Reports cough, Denies dyspnea and Denies wheezing GI Reports dyspepsia and Reports heartburn Musc Denies no additional complaints Neuro Denies Neuro-related abnormal movements Psych Denies no additional complaints Brendan/Lymph Denies easy bleeding and Denies lymphadenopathy Aller/Immun Denies lip swelling, Denies tongue swelling and Denies wheezing Physical Exam Vital Signs: Last Vital Signs Pulse 68 04/23/25 09:51 BP 134/50 L 04/23/25 09:51 Pulse Ox 98 04/23/25 09:51 Oxygen Delivery Method Room Air 04/23/25 09:51 BMI result Body Mass Index 18.8 Const General: alert Neck Neck: Yes normal visual inspection, Yes full ROM and Yes no lymphadenopathy Chest Chest palpation & inspection: normal inspection of the chest Resp Effort & Inspection: normal respiratory effort Auscultation: clear to auscultation bilaterally and no wheezes Cardio Rate: regular rate Rhythm: regular rhythm Heart sounds: S1 normal heart sound present and S2 normal heart sound present GI Palpation (GI): Soft to palpation and nontender Auscultation: normal bowel sounds Skin General skin exam: rashes and/or lesions noted Assessment & Plan Assessment & Plan (1) Severe persistent asthma: Code(s): J45.50 - Severe persistent asthma, uncomplicated Category: Medical Qualifiers: Asthma complication type: uncomplicated Qualified Code(s): J45.50 - Severe persistent asthma, uncomplicated (2) Chronic allergic rhinitis: Code(s): J30.9 - Allergic rhinitis, unspecified Category: Medical (3) Eosinophilia: Comment: eosinophiliac asthma per pulmonology H&P Code(s): D72.10 - Eosinophilia, unspecified Category: Medical Qualifiers: Eosinophilia type: drug rash with eosinophilia and systemic symptoms Qualified Code(s): D72.12 - Drug rash with eosinophilia and systemic symptoms syndrome; T50.906G - Adverse effect of unspecified drugs, medicaments and biological substances, initial encounter (4) Hypersensitivity pneumonitis: Code(s): J67.9 - Hypersensitivity pneumonitis due to unspecified organic dust Category: Medical Plan holding respiratory therapy with Wixela start Symbicort continue nasal steroid and nasal rinsing short-acting beta agonist as needed continue Fasenra every 2 months F/U 1 yr Medications: New budesonide-formoterol 160-4.5 mcg/actuation (Symbicort) 2 puffs inhalation BID 10.2 grams 11RF 30 days J44.89 - Other specified chronic obstructive pulmonary disease Coding Level of Care Code Est Pt Level 4 (09919) Complex EM visit Add On G2211 Diagnoses Severe persistent asthma without complication J45.50 Asthma complication type: uncomplicated Chronic allergic rhinitis J30.9 Drug-induced rash with eosinophilia and systemic symptoms D72.12; T50.905A Eosinophilia type: drug rash with eosinophilia and systemic symptoms Hypersensitivity pneumonitis J67.9 Time Spent (min) 16
--- OUTSIDE RECORDS SUMMARY | 2025-04-23 10:38 | XMS_ITS | Patient Health Record ---
Author Organization [facility] Address [address] [place] [address] Care Team Providers Care Steel Analyst Name Role Phone Juan Alberto Mo MD Primary Care Provider UnavailMatt Vora [phone] Allergies Allergen (clinical drug ingredient) Drug/Non Drug Allergy documented on EMR Reaction Allergy Type Onset Date Status molds (uncoded) Unknown Allergy Acti ve Results Component Value Reference Range Notes Pathology Reviewed date:02/05/2025 07:22:53 PM Interpretation: Performing Lab:[facility], [address] [place] [id number] Notes/Report: Reason For Referral No Information Medications [...] Status Risk Notes Problem Irritable bowel syndrome (17522543) Irritable bowel syndrome (K58.9) Active confirmed Problem 856038197 Encounter for screening for malignant neoplasm of colon (Z12.11) Active confirmed Problem 977665621 History of adenomatous polyp of colon (Z86.010) Active confirmed Problem 49220200 Weight loss (R63.4) Active confirmed Problem 17889240 Anorexia (R63.0) Active confirmed Problem 333693398 Early satiety (R68.81) Active confirmed Problem Abnormal upper gastrointestinal barium series (R93.3) Active confirmed Problem Hiatal hernia (31448621) Hiatal hernia (K44.9) Active confirmed Problem Gastritis (0934564) Gastritis (K29.70) Active confirmed Problem 149127547228333 Pre-procedural examination (Z01.818) Active confirmed Problem Periumbilical pain (592600611) Abdominal pain, periumbilic (R10.33) Active confirmed Problem Diverticulosis of colon (455849875) Diverticulosis of colon (K57.30) Active confirmed Vital Signs Temperature 97.7 degrees Fahrenheit 10/24/2024 Blood pressure diastolic 01 mm Hg 10/24/2024 Height 70 in 10/24/2024 Blood pressure systolic 001 mm Hg 10/24/2024 Weight 137.6 lbs 10/24/2024 BMI 19.74 kg/m2 10/24/2024 Procedures Procedure Date Ordered Date Performed Result Body Sit e UPPER GI ENDOSCOPY 10/24/2024 N/A Encounters Encounter Location Date Provider Diagnosis [facility] Outpatient [address] [place] [phone] 01/18/2025 Matt De La Rosa Abnormal UGI series R93.3 ; Gastro-esophageal reflux disease without esophagitis K21.9 and Hiatal hernia K44.9 [facility] [address] [place] [phone] 10/24/2024 Matt De La Rosa Abnormal upper gastrointestinal barium series R93.3 ; Abdominal pain, periumbilic R10.33 and Irritable bowel syndrome K58.9 [facility] [address] [place] [phone] 01/14/2025 Matt De La Rosa Assessments Encounter Date Diagnosis (ICD Code) Assessment Notes Treatment Notes Treatment Clinical Notes Section Notes 01/18/2025 Gastro-esophageal reflux disease without esophagitis (ICD-10 - K21.9) 01/18/2025 Abnormal UGI series (ICD-10 - R93.3) 10/24/2024 Abnormal upper gastrointestinal barium series (ICD-10 [...] to keep you advised of her progress. 01/18/2025 Hiatal hernia (ICD-10 - K44.9) 10/24/2024 Irritable bowel syndrome (ICD-10 - K58.9) [...] Insured Coverage Start Date Coverage End Date [facility] [address] [place] [phone] [id number] MAHI ALEGRE Self - patient is the [...] the cecum Irritable bowel syndrome- stable Denies NC,DM,CVA,renal disease Kidney stones-06/2016- Dr. West- cystos copy [...]
== END 2025-04-23 10:09 | disposition home or self-care (01) ==
LOC: HO.HPS 09:48
PROVIDERS: PCP Internal Medicine; Visit Provider Hospitalist
DX: J45.50 Severe persistent asthma, uncomplicated (principal); J30.9 Allergic rhinitis, unspecified; D72.12 Drug rash with eosinophilia and systemic symptoms syndrome; T50.905A Adverse effect of unspecified drugs, medicaments and biological substances, initial encounter; J67.9 Hypersensitivity pneumonitis due to unspecified organic dust
CPT/HCPCS: 99214; G2211

== ENCOUNTER → 2025-04-23 09:47 | Outpatient (BNVA) | payer MEDICARE, SELFPAY | PROVIDERS: PCP Internal Medicine; Visit Provider Hospitalist | DX: J45.50 Severe persistent asthma, uncomplicated (principal); K21.9 Gastro-esophageal reflux disease without esophagitis; J30.9 Allergic rhinitis, unspecified; D72.12 Drug rash with eosinophilia and systemic symptoms syndrome; J67.9 Hypersensitivity pneumonitis due to unspecified organic dust | CPT/HCPCS: 99212 ==

== ENCOUNTER 2025-05-16 08:14 | Outpatient (AMB) | payer MEDICARE, SELFPAY ==
--- NOTE | 2025-05-16 08:14 | A.OFFVIS_ITS ---
Intake Visit Reasons: 1y follow up Intake Note: Patient presents today via telehealth for a 1yr/follow-up Urology Meds- None Allergies to Antibiotic- No Known Allergies Blood Thinner- None Service Now Developer Required: No Accompanied by: Self / Same As Patient Allergies Sulfa (Sulfonamide Antibiotics) Allergy (Intermediate, Verified 05/16/25 08:15) Nausea and Vomiting montelukast (Singulair) Adverse Reaction (Severe, Verified 05/16/25 08:15) Headache Medication List - Last Reconciled 05/16/25 by Edmar Bains MD albuterol sulfate 90 mcg/actuation (Ventolin HFA) 2 puffs inhalation Q6H PRN azelastine 2 sprays intranasal BID 30 days benzonatate 100 mg PO BID-TID PRN brimonidine 0.2% 1 drp ophthalmic (eye) DAILY brinzolamide 1% 1 drp ophthalmic (eye) DAILY budesonide-formoterol 160-4.5 mcg/actuation (Symbicort) 2 puffs inhalation BID 30 days cetirizine 10 mg PO DAILY cholecalciferol (vitamin D3) 125 mcg PO DAILY 90 days estradiol 0.01%(0.1mg/gram) (Estrace) vaginally 3 times a week; use pea-sized amount on fingertip and apply vaginally, M W at bedtime Fasenra (benralizumab) 30 mg subcut Q8W NS fluticasone propion-salmeterol 250-50 mcg/dose (Wixela Inhub) 1 ea inhalation BID fluticasone propionate 50 mcg/actuation 2 sprays intranasal DAILY 30 days ipratropium-albuterol 0.5 mg-3 mg(2.5 mg base)/3 mL 3 mL inhalation Q6H PRN latanoprost 0.005% 1 drp ophthalmic (eye) DAILY nebulizers As directed teriparatide (Forteo) 20 mcg subcut DAILY HPI Comments Details: 05/15/2025-- History of Present Illness The patient is a 70-year-old female presenting with recurrent urinary tract infections. The patient has a history of recurrent urinary tract infections, but she has not experienced an episode in the past couple of months. She has been managing well without recent infections. The patient also has a history of kidney stones, for which an ultrasound was performed in February by Dr. Herron at [facility] in [place]. The ultrasound results were normal, and she has not experienced any pain or issues related to kidney stones recently. The patient has been diagnosed with osteoporosis and is currently on Forteo administered daily at a dose of 20 mg. She has been advised to take calcium supplements to support her bone health. The patient has not been using vaginal estradiol due to cost issues, as it is no longer covered by her insurance. Results - Ultrasound: Normal results, no abnormalities detected (performed in February). - Last UTI- 12/20/2024- Ecoli- Plan 1. Recurrent Urinary Tract Infections - Monitor for any recurrence of urinary tract infections. - Patient advised to maintain hydration and report any symptoms promptly. - change from Vagifem to Estrace cream to see if covered by insurance 2. Osteoporosis - - On Forteo 20 mg daily and calcium supplementation 3. Kidney Stones - No current intervention required as ultrasound results were normal. - Advise continued hydration and dietary modifications to prevent recurrence. 05/17/24--here for follow-up recurrent UTIs, cystitis,prior workup for hematuria-negative for malignancy at that time. History kidney stones. Urinalysis today is within normal limits negative for blood. Mahi states she has not had any UTI symptoms since she has last seen. She has been the hot tub which seemed to be a stimulus to the UTI symptoms. I will renew the Vagifem. Follow-up in 1 year. Patient to call if develops symptoms prior 05/18/2023?Mahi is a 68-year-old female who presents today to the office for cystoscopy. She was last seen by me on 04/18/2023 for hematuria. She was treated with Abx. Macrobid 100 mg bid for 10 days, and Vagifem 10 mcg twice a week was ordered during that time. I reviewed the urine culture results from 04/19/2023 which came back 50,000 to 100,000 cfu/ml mixed bacterial marizol. 05/18/23--Cystoscopy finding: mild bladder wall thickening; no suspicious bladder lesions noted. [facility] Medical History Tubular adenoma of colon Severe persistent asthma Chronic allergic rhinitis Eosinophilia Hypersensitivity pneumonitis Rash and nonspecific skin eruption Vitamin D deficiency Non-toxic multinodular goiter Osteoporosis Surgical History S/P thyroid biopsy History of ventral hernia repair History of hysterectomy History of cholecystectomy History of cystoscopy History of colonoscopy History of esophagogastroduodenoscopy (EGD) Family History Father Hypertension Myocardial infarct Mother Hypertension Social History Are you a primary career discovery teacher to a significant other at home: No Do you presently have visiting nurse or other home services: No Comment: with no loss of consciousness or ER visit Patient Tobacco Use Status: Former Tobacco user Tobacco use type: Cigarette Cigarettes Per Day: 10 Years Smoked: 20 Review of Systems Const All systems reviewed & are unremarkable except as noted in HPI and below Reports no additional complaints Eyes Reports no additional complaints ENT Reports no additional complaints Card Reports no additional complaints Resp Reports no additional complaints GI Reports no additional complaints Reports as per HPI Musc Reports no additional complaints Skin/Breast Reports system reviewed and no additional complaints, except as documented Neuro Reports no additional complaints Psych Reports no additional complaints Endo Reports no additional complaints Brendan/Lymph Reports no additional complaints Aller/Immun Reports no additional complaints Telehealth Telehealth Telehealth Platform: [facility] Location of provider rendering services: practice address Location of patient: address on file Patient Identification confirmed using: Name, : Yes Telehealth method: video Patient verbally consented to treatment: Yes Patient verbally consented to billing insurance company: Yes Patient informed of any privacy concerns related to visit: Yes Results Reviewed Results Reviewed: Collected: 12/20/24 Status: COMP Req#: [id number] Received: 12/20/24 Source: [facility] Sp Desc: Subm Dr: Edmar Bains MD Ordered: Urine Culture Procedure Result Verified Urine Culture Final 12/22/24 Organism 1 Escherichia coli Quant > 100,000 cfu/mL E coli M.I.C. RX --------- --- Ampicillin 8 S Cefazolin (Urine) <=1 S Cefepime <=0.12 S Ceftriaxone <=0.25 S Ciprofloxacin <=0.06 S Gentamicin <=1 S Nitrofurantoin <=16 S Trimethoprim/Sulfamethoxazole <=20 S Date of Service: 03/18/23 EXAMINATION:? US RETROPERITONEAL LIMITED (RENAL ONLY) CLINICAL INFORMATION: Microscopic hematuria. COMPARISON:? Renal ultrasound 02/15/2022 [address] 01/29/2021. CT abdomen and pelvis 07/19/2019. FINDINGS: RIGHT KIDNEY: 9.4 x 3.4 x 4.5 cm (SAG x AP x TRV). The kidney is normal in size, contour, and echogenicity. Renal cortical thickness is normal. No calculi or focal parenchymal lesions. No hydronephrosis LEFT KIDNEY: 9.8 x 3.9 x 4.6 cm (SAG x AP x TRV). The kidney is normal in size, contour, and echogenicity. Renal cortical thickness is normal. No calculi or focal parenchymal lesions. No hydronephrosis. IMPRESSION:? Unremarkable examination Ordered:? Urine Culture? Procedure?Result?Verified?Site ? Urine Culture? Final?09/25/22 ? ? ?Organism 1?Escherichia coli ? Quant?> 100,000 cfu/mL ? E coli? M.I.C.? ? RX? --------- ---?Ampicillin?<=2? S?Ceftriaxone? <=0.25? ? ?S?Gentamicin?<=1? S?Levofloxacin?<=0.12? ? ?S?Nitrofurantoin?<=16?S?Trimethoprim/Sulfamethoxazole? <=20?S Assessment & Plan Assessment & Plan (1) Nephrolithiasis: Code(s): N20.0 - Calculus of kidney Category: Medical (2) Vaginal atrophy: Code(s): N95.2 - Postmenopausal atrophic vaginitis Category: Medical (3) History of nicotine use: Code(s): Z87.891 - Personal history of nicotine dependence Category: Medical (4) Hematuria: Code(s): R31.9 - Hematuria, unspecified Category: Medical Plan Plan 1. Recurrent Urinary Tract Infections - Monitor for any recurrence of urinary tract infections. - Patient advised to maintain hydration and report any symptoms promptly. - change from Vagifem to Estrace cream to see if covered by insurance 2. Osteoporosis - - On Forteo 20 mg daily and calcium supplementation 3. Kidney Stones - No current intervention required as ultrasound results were normal. - Advise continued hydration and dietary modifications to prevent recurrence. Medications: New estradiol 0.01%(0.1mg/gram) (Estrace) vaginally 3 times a week; use pea-sized amount on fingertip and apply vaginally, M W F at bedtime 42.5 grams 1RF Patient Instructions: The patient had an opportunity to ask questions regarding treatment plan. The patient expressed understanding and agreement with the above treatment plan. The patient is aware they should contact our office by phone for worsening of their current condition or the appearance of new symptoms. Compliance is encouraged with any medications and followup testing that is ordered. It is a privilege to be allowed the opportunity to participate in the urologic care of your patient. If you have any questions or concerns regarding treatment for the above conditions please do not hesitate to contact me. The office telephone contact is [phone]. This note is constructed in part using voice recognition software. While every effort has been made to ensure accuracy aerial hurricane hunter errors may have been included. Yours sincerely, Edmar Bains MD Scribe Plan - Not visible on output: Patient was informed and verbally consented to the use of an ambient scribe for clinic note documentation during this visit. Coding Level of Care Code Tele Est Pt Level 4 (70483) Complex EM visit Add On G2211 Diagnoses Nephrolithiasis N20.0 Vaginal atrophy N95.2 History of nicotine use Z87.891 Hematuria R31.9
== END 2025-05-16 09:29 | disposition home or self-care (01) ==
LOC: HO.HUSH 08:14
PROVIDERS: PCP Internal Medicine; Visit Provider Urology
DX: N20.0 Calculus of kidney (principal); N95.2 Postmenopausal atrophic vaginitis; Z87.891 Personal history of nicotine dependence; R31.9 Hematuria, unspecified
CPT/HCPCS: 99214; G2211